=== PATIENT | female | born 1940 | race Caucasian/White ===

== ENCOUNTER 2021-10-11 12:47 | Inpatient (IN) | payer MEDICARE, MEDICAID, SELFPAY ==
--- NOTE | ~2021-10-11 | CT_ITS ---
EXAMINATION: CT CHEST, ABDOMEN AND PELVIS WITHOUT CONTRAST. CLINICAL INFORMATION: Cough, tachypnea. Left upper quadrant and left lower quadrant abdominal pain. COMPARISON: Chest radiograph dated from 05/19/2019. CT abdomen/pelvis dated from 07/21/2014. TECHNIQUE: Multidetector volumetric imaging was performed from the thoracic inlet through the pubic symphysis without intravenous contrast. Sagittal and coronal reformatted images were obtained on the technologist's workstation. This CT examination was performed using dose optimization techniques as appropriate, variously including the following: *Automated exposure control *Adjustment of mA and/or kV according to patient size (this includes techniques or standardized protocols for targeted exams where dose is matched to indication/reason for exam; i.e. extremities or head) *Use of iterative reconstruction technique DLP: 682 and 1623 mGy-cm FINDINGS: Evaluation is limited due to motion. CHEST: Lung: Poor inspiratory effort with low lung volumes. There are airspace opacities in the right lower lobe which could represent atelectasis or developing consolidation. Evaluation of pulmonary nodules is significantly limited due to respiratory motion. However, accounting for limitations, a 0.4 cm pulmonary nodule is identified in the left upper lobe (7:174). There is also a tiny calcified granuloma medially in the left lung base (7:322). There is expiratory narrowing of the trachea, which appears otherwise patent. Evaluation of bronchi is limited due to respiratory motion. Mediastinum: The heart size is enlarged. No pericardial effusion. Extensive triple-vessel coronary calcifications. There is also atherosclerotic disease of the thoracic aorta which is of normal diameter. There is no mediastinal lymphadenopathy by size criteria. Evaluation of hilar lymph nodes is limited in the absence of intravenous contrast. There is an enlarged and heterogeneous thyroid gland with multiple subcentimeter nodules, and a calcification in the left lobe. Pericardium/Pleura: No pleural effusion or pneumothorax. Chest Wall/Axilla: No chest wall mass. No axillary lymphadenopathy by size criteria. ABDOMEN/PELVIS: Peritoneal Space: No free air or free fluid. Liver, Gallbladder, Biliary Tree: The noncontrast liver is normal in size, shape and attenuation. No focal liver lesions are identified. The gallbladder is distended without evidence of radiopaque stones or pericholecystic fat stranding. Pancreas: Atrophic. The main pancreatic duct is nondilated. Spleen: Unremarkable. Adrenal Glands: Enlarged adrenal glands, similar since 2015. 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 Normal right adrenal gland. Kidneys and Ureters: The kidneys are normal in size, shape, and attenuation. No hydronephrosis, hydroureter, or calculi seen. No perinephric stranding. Bladder: Unremarkable. Gastrointestinal Tract: Small hiatal hernia. The stomach and the small bowel are nondilated. No evidence of colitis or diverticulitis. No bowel obstruction. Abdominal Wall: There is a 10.7 x 5 x 14.5 cm anterior left rectus sheath hematoma. Lymphovascular Structures: No lymphadenopathy by size criteria. The aorta is unremarkable. Pelvic Viscera: Evaluation is limited due to artifacts from a right hip prosthesis. Calcified uterine fibroids are again noted. Osseus Structures: Marked osteopenia, which limits evaluation of subtle osseous findings. Extensive degenerative changes along the lumbar spine. Mild compression deformities at L2 and L3 are new since 2015. Partially imaged total right hip arthroplasty. Chronic appearing deformity of the left anterior first and second ribs. CT/CT abdomen pelvis wo con IMPRESSION: Evaluation is limited due to motion. The lack of intravenous contrast limits evaluation of the solid visceral organs including the liver, spleen, pancreas, and kidneys. Chest: 1. Airspace opacities in the right lower lobe could represent atelectasis, aspiration or developing infiltrates. 2. Nonspecific 0.4 cm left upper lobe pulmonary nodule. Recommend follow-up per Fleischner criteria (see below). 3. Enlarged and heterogeneous thyroid gland for which correlation with an elective thyroid ultrasound is recommended. 4. Cardiomegaly and severe triple-vessel coronary calcifications. Correlate with cardiovascular risk factors. Abdomen/pelvis: 1. Large approximately up to 14.5 cm left anterior rectus sheath hematoma. Active extravasation cannot be assessed in the absence of intravenous contrast. 2. Hiatal hernia. 3. Marked osteopenia with new mild compression deformities at L2 and L3 when compared to 2015. Assuming patient has no history of malignancy, recommend follow-up per Fleischner Society recommendations. According to the UPDATED 2017 Fleischner Society recommendations, the advised followup imaging for solid nodules < 6 mm is: LOW RISK PATIENT: No routine follow up. HIGH RISK PATIENT: Optional CT at 12 months.
--- NOTE | 2021-10-11 13:01 | ECG_ITS ---
Test Reason : chest pain Blood Pressure : / mmHG Vent. Rate : 081 BPM Atrial Rate : 000 BPM P-R Int : 000 ms QRS Dur : 086 ms QT Int : 396 ms P-R-T Axes : 000 022 041 degrees QTc Int : 460 ms Atrial fibrillation Abnormal ECG When compared with ECG of 19-MAY-2019 20:41, No significant changes seen Referred By: Robert Phipps Electronically Signed By:ALBERTO VÁSQUEZ
--- NOTE | 2021-10-11 13:10 | ED.SOB ---
HPI - SOB/Dyspnea General Chief Complaint: General Medical Stated Complaint: weakness, diff breathing Time Seen by Provider: 10/11/21 12:51 Source: patient and EMS Mode of arrival: EMS Limitations: no limitations History of Present Illness HPI Narrative: 80-year-old female who is brought to the emergency department for evaluation of lethargy, weakness, difficulty breathing, and cough. According to the paramedics, the patient has been short of breath and has had a cough for 2-3 days. The patient had a chest x-ray from her senior care facility that revealed no evidence for pneumonia. Today the patient was more weak and lethargic compared to her baseline she continued to have a nonproductive sounding cough. According to paramedics, the patient's O2 saturation was in the low 90s [address] the patient on 3 L via nasal cannula in the O2 saturation 1 appeared 96%. Patient was also noted to have an elevated respiratory rate. Paramedics report that the patient had a COVID-19 booster vaccination yesterday. The patient does have dementia it is unclear if she is a reliable informant. She was oriented to person, she knew she was at [facility], she did not know the year. She has no complaints. Review of systems was positive for occasional cough, frequency but no dysuria. Related Data Home Medications Medication Instructions Recorded Confirmed acetaminophen 650 mg 650 mg PO Q4H PRN 03/20/21 10/11/21 tablet,extended release amiodarone 100 mg tablet 1 tab PO DAILY 03/20/21 10/11/21 buspirone 7.5 mg tablet 1 tab PO BID 03/20/21 10/11/21 donepezil 10 mg tablet 1 tab PO BEDTIME 03/20/21 10/11/21 hydralazine 25 mg tablet 1 tab PO TID 03/20/21 10/11/21 memantine 10 mg tablet 1 tab PO BID 03/20/21 10/11/21 rivaroxaban 20 mg tablet (Xarelto) 1 tab PO DAILY@1700 03/20/21 10/11/21 Fleet Enema 1 unit MA DAILY PRN 07/03/21 10/11/21 Milk of Magnesia 30 ml PO DAILY PRN 07/03/21 10/11/21 albuterol sulfate 90 mcg/actuation 2 puff INHALATION Q4H PRN 10/11/21 10/11/21 aerosol inhaler ammonium lactate 12 % lotion 1 appl TOPICAL BID PRN 10/11/21 10/11/21 bisacodyl 10 mg rectal suppository 10 mg MA DAILY PRN 10/11/21 10/11/21 cholecalciferol (vitamin D3) 125 125 mcg PO MO@1000 10/11/21 10/11/21 mcg (5,000 unit) tablet (Vitamin D3) furosemide 40 mg tablet 40 mg PO DAILY 10/11/21 10/11/21 guaifenesin 600 mg tablet, 600 mg PO BID 10/11/21 10/11/21 extended release 12 hr (Mucinex) lisinopril 5 mg tablet 5 mg PO BEDTIME 10/11/21 10/11/21 Allergies Allergy/AdvReac Type Severity Reaction Status Date / Time No Known Allergies Allergy Unverified 02/09/20 15:39 [No Known Allergies*] Review of Systems Review of Systems: Yes all other systems are reviewed and are negative [facility] Past Medical History Attestation statement: The following information was validated with the patient. [facility] Narrative: Social history: She lives at a long-term care facility. She denies tobacco, alcohol and drug use. Medical History (Updated 10/11/21 @ 16:32 by Robert Phipps MD) Anxiety Chronic CHF Depression Hemoglobinemia HTN (hypertension) Osteoarthritis Overactive bladder Persistent atrial fibrillation Vascular dementia of acute onset without behavioral disturbance Social History Social History Patient Tobacco Use Status: Never used Tobacco Advance Directives: No Advance Directives Information Provided: No Physical Exam Vital Signs: Vital Signs: Last Vital Signs Temp 100.7 F H 10/11/21 13:45 Pulse 92 10/11/21 13:45 Resp 30 H 10/11/21 13:45 BP 128/61 10/11/21 13:45 Pulse Ox 95 10/11/21 13:45 BMI result Body Mass Index 44.2 Const: Other: Awake, alert does answer questions appropriately, does not appear to be in distress Orientation/consciousness: oriented to person and oriented to place HEENT: Head: Yes normal to inspection, Yes normocephalic and Yes atraumatic Ears: external ears normal General nose exam: Normal external nose present Face and sinus: Yes normal facial exam Mouth: Normal oral and palatal mucosa present Throat: Yes posterior oropharynx normal Eyes: General: appearance normal, both eyes and all related structures Pupils: Equal, round and reactive pupils present Neck: Neck: Yes normal visual inspection, Yes no lymphadenopathy, Yes trachea midline and Yes supple Chest: Chest palpation & inspection: normal inspection of the chest and normal palpation of entire chest wall Resp: Effort & Inspection: normal respiratory effort and able to speak in complete sentences Auscultation: clear to auscultation bilaterally Cardio: Rate: regular rate Rhythm: regular rhythm Heart sounds: S1 normal heart sound present, S2 normal heart sound present and no murmurs GI: Inspection: Yes normal to inspection and Yes Abdominal panniculus present Palpation (GI): Soft to palpation, Tenderness to palpation present (GI) in the LLQ (Moderate) and in the LUQ (Moderate) and no guarding Auscultation: normal bowel sounds : General: Yes no CVA tenderness Back/Spine/Pelvis: Back: no CVA tenderness Skin: General skin exam: no rashes or lesions noted Neuro: General: oriented to person and oriented to place Cranial nerves: Yes CN's II-XII intact bilaterally and Yes Equal, round and reactive pupils present Cognition (Neuro): normal cognition Motor exam (neuro): Other motor observations present (Generalized weakness with who fell extremities symmetrically) Extrem: Other: Lower extremities appear to be swollen symmetrically, trace pitting edema Psych: Appearance: grossly normal Speech and movement: Normal speech and movement present Affect: normal affect Attitude: cooperative Course Course Course Narrative: 80-year-old female who presents emergency department for evaluation of 3 days of a nonproductive cough, shortness of breath and increased lethargy that began today. The patient is in a long-term care nursing facility. She had no complaints on presentation and review of systems is positive for cough and urinary frequency. Physical examination did reveal generalized weakness but she can move all her extremities symmetrically. She does have left upper quadrant and left lower quadrant tenderness. I did order CBC, CMP, lactate, blood cultures, PT/INR, PTT, EKG, troponin, CT scan of her chest, abdomen pelvis without contrast. Patient was ordered to get normal saline x1 L. 1605: Laboratory evaluation: WBC elevated 11,000 H&H was normal at 15.5 and 46.3 however decreased from 17 and 51.5 from 07/03/2021. Elevated PT INR 25.3 and 2.2. Elevated PTT 43.6. Low sodium 134, elevated glucose 126, elevated bilirubin 1.9. Urinalysis was positive for nitrates. Urine microscopic revealed 0 RBCs, 0 WBCs, 4+ bacteria, 1+ squamous cells. COVID-19 and influenza were negative. Radiology evaluation: CT of the chest without IV contrast concerning for possible right lower lobe infiltrate. Incidentally, the thyroid gland was enlarged and heterogeneous and the radiologist recommended an ultrasound. CT scan of the abdomen pelvis without IV contrast did reveal a large 14 cm left anterior rectus sheath hematoma. The patient will be treated for possible aspiration pneumonia with Zosyn 4.5 g IV. The patient's rectal sheath hematoma is most likely caused by Xarelto. The patient does have an elevated PT/INR and PTT. Given her a drop in her H&H I am concerned that she may have a life-threatening bleed and I did discuss reversal with the pharmacist. He recommended that we give the patient Kcentra 2500 units IV and vitamin K 10 units IV and this was ordered. I also ordered a type and screen. will discuss admission with the covering hospitalist. . MDM - SOB/Dyspnea Lab Data Attestation: I reviewed the patient's lab results. Result diagrams: 10/11/21 13:16 10/11/21 13:16 Labs: Lab Results 10/11/21 10/11/21 10/11/21 Range/Units 13:16 13:16 13:16 WBC 11.0 H (4.8-10.8) X10*3/uL RBC 5.60 H (4.20-5.50) X10*6/uL Hgb 15.5 (12.0-16.0) g/dl Hct 46.3 (37.0-47.0) % MCV 82.7 (80.0-98.0) fL MCH 27.7 (27.0-33.0) pg MCHC 33.5 (31.0-35.0) g/dl RDW 14.0 (11.0-16.0) % Plt Count 215 (160-400) X10*3/uL MPV 9.2 L (9.4-12.3) fL Immature Gran % (Auto) 0.7 H (0.0-0.4) % Neut % (Auto) 85.8 H (45-73) % Lymph % (Auto) 4.3 L (20-40) % [place] % (Auto) 8.8 (2-11) % Eos % (Auto) 0.0 (0-4) % Baso % (Auto) 0.4 (0-2) % Lymph # (Auto) 0.5 L (1.2-4.9) X10*3/uL [place] # (Auto) 1.0 (0.1-1.2) X10*3/uL Eos # (Auto) 0.0 (0.0-0.4) X10*3/uL Baso # (Auto) 0.0 (0.0-0.2) X10*3/uL Abs Immat Gran (auto) 0.08 H (0.00-0.03) X10*3/uL Absolute Neuts (auto) 9.5 H (2.0-8.3) x10*3/uL Absolute Nucleated RBC 0.000 (0.0-0.012) X10*3/uL Nucleated RBC % (auto) 0.0 (0.0-0.2) /100WBC PT 25.3 H (9.9-13.0) SEC INR 2.2 H (0.9-1.1) APTT 43.6 H (24.1-38.0) SEC Sodium 134 L (135-145) mmol/L Potassium 4.1 (3.3-5.1) mmol/L Chloride 103 (96-108) mmol/L Carbon Dioxide 23 (22-29) mmol/L Anion Gap 12 (12-20) BUN 15 (9-16) mg/dL Creatinine 0.71 (0.5-1.4) mg/dL Estim Creat Clear Calc 93.9 Estimated GFR > 60 Random Glucose 126 H (60-115) mg/dL Lactic Acid (0.5-2.0) mmol/L Calcium 8.6 (8.4-10.2) mg/dL Total Bilirubin 1.9 H (0.0-1.0) mg/dL AST 15 (5-31) U/L ALT 17 (0-31) U/L Alkaline Phosphatase 72 (39-117) U/L Total Creatine Kinase 75 (26-140) U/L Troponin I High Sens (<3.5-17.0) ng/L Total Protein 6.4 L (6.5-8.0) g/dL Albumin 3.5 (3.5-5.0) g/dL Lipase 10 (8-78) U/L Urine Color Urine Appearance Urine pH (5.0-8.0) Ur Specific [place] (1.005-1.025) Urine Protein (NEG-TRACE) MG/DL Urine Glucose (UA) (NEG) MG/DL Urine Ketones (NEG) MG/DL Urine Blood (NEG) Urine Nitrite (NEG) Ur Leukocyte Esterase (NEG) Urine RBC (0) /HPF Urine WBC (0-4) /HPF Ur Squamous Epith Cells /LPF Urine Bacteria /LPF COVID-19 (RADHA) (Negative) COVID-19 Clin Com Influenza Type A (PAMELA) (Negative) Influenza Type B (PAMELA) (Negative) Influenza A & B Note 10/11/21 10/11/21 10/11/21 Range/Units 13:16 13:16 13:16 WBC (4.8-10.8) X10*3/uL RBC (4.20-5.50) X10*6/uL Hgb (12.0-16.0) g/dl Hct (37.0-47.0) % MCV (80.0-98.0) fL MCH (27.0-33.0) pg MCHC (31.0-35.0) g/dl RDW (11.0-16.0) % Plt Count (160-400) X10*3/uL MPV (9.4-12.3) fL Immature Gran % (Auto) (0.0-0.4) % Neut % (Auto) (45-73) % Lymph % (Auto) (20-40) % [place] % (Auto) (2-11) % Eos % (Auto) (0-4) % Baso % (Auto) (0-2) % Lymph # (Auto) (1.2-4.9) X10*3/uL [place] # (Auto) (0.1-1.2) X10*3/uL Eos # (Auto) (0.0-0.4) X10*3/uL Baso # (Auto) (0.0-0.2) X10*3/uL Abs Immat Gran (auto) (0.00-0.03) X10*3/uL Absolute Neuts (auto) (2.0-8.3) x10*3/uL Absolute Nucleated RBC (0.0-0.012) X10*3/uL Nucleated RBC % (auto) (0.0-0.2) /100WBC PT (9.9-13.0) SEC INR (0.9-1.1) APTT (24.1-38.0) SEC Sodium (135-145) mmol/L Potassium (3.3-5.1) mmol/L Chloride (96-108) mmol/L Carbon Dioxide (22-29) mmol/L Anion Gap (12-20) BUN (9-16) mg/dL Creatinine (0.5-1.4) mg/dL Estim Creat Clear Calc Estimated GFR Random Glucose (60-115) mg/dL Lactic Acid 1.5 (0.5-2.0) mmol/L Calcium (8.4-10.2) mg/dL Total Bilirubin (0.0-1.0) mg/dL AST (5-31) U/L ALT (0-31) U/L Alkaline Phosphatase (39-117) U/L Total Creatine Kinase (26-140) U/L Troponin I High Sens 7.2 (<3.5-17.0) ng/L Total Protein (6.5-8.0) g/dL Albumin (3.5-5.0) g/dL Lipase (8-78) U/L Urine Color Urine Appearance Urine pH (5.0-8.0) Ur Specific [place] (1.005-1.025) Urine Protein (NEG-TRACE) MG/DL Urine Glucose (UA) (NEG) MG/DL Urine Ketones (NEG) MG/DL Urine Blood (NEG) Urine Nitrite (NEG) Ur Leukocyte Esterase (NEG) Urine RBC (0) /HPF Urine WBC (0-4) /HPF Ur Squamous Epith Cells /LPF Urine Bacteria /LPF COVID-19 (RADHA) (Negative) COVID-19 Clin Com Influenza Type A (PAMELA) Negative (Negative) Influenza Type B (PAMELA) Negative (Negative) Influenza A & B Note See Note 10/11/21 10/11/21 Range/Units 13:16 14:46 WBC (4.8-10.8) X10*3/uL RBC (4.20-5.50) X10*6/uL Hgb (12.0-16.0) g/dl Hct (37.0-47.0) % MCV (80.0-98.0) fL MCH (27.0-33.0) pg MCHC (31.0-35.0) g/dl RDW (11.0-16.0) % Plt Count (160-400) X10*3/uL MPV (9.4-12.3) fL Immature Gran % (Auto) (0.0-0.4) % Neut % (Auto) (45-73) % Lymph % (Auto) (20-40) % [place] % (Auto) (2-11) % Eos % (Auto) (0-4) % Baso % (Auto) (0-2) % Lymph # (Auto) (1.2-4.9) X10*3/uL [place] # (Auto) (0.1-1.2) X10*3/uL Eos # (Auto) (0.0-0.4) X10*3/uL Baso # (Auto) (0.0-0.2) X10*3/uL Abs Immat Gran (auto) (0.00-0.03) X10*3/uL Absolute Neuts (auto) (2.0-8.3) x10*3/uL Absolute Nucleated RBC (0.0-0.012) X10*3/uL Nucleated RBC % (auto) (0.0-0.2) /100WBC PT (9.9-13.0) SEC INR (0.9-1.1) APTT (24.1-38.0) SEC Sodium (135-145) mmol/L Potassium (3.3-5.1) mmol/L Chloride (96-108) mmol/L Carbon Dioxide (22-29) mmol/L Anion Gap (12-20) BUN (9-16) mg/dL Creatinine (0.5-1.4) mg/dL Estim Creat Clear Calc Estimated GFR Random Glucose (60-115) mg/dL Lactic Acid (0.5-2.0) mmol/L Calcium (8.4-10.2) mg/dL Total Bilirubin (0.0-1.0) mg/dL AST (5-31) U/L ALT (0-31) U/L Alkaline Phosphatase (39-117) U/L Total Creatine Kinase (26-140) U/L Troponin I High Sens (<3.5-17.0) ng/L Total Protein (6.5-8.0) g/dL Albumin (3.5-5.0) g/dL Lipase (8-78) U/L Urine Color YELLOW Urine Appearance CLOUDY Urine pH 6.0 (5.0-8.0) Ur Specific [place] 1.020 (1.005-1.025) Urine Protein NEG (NEG-TRACE) MG/DL Urine Glucose (UA) NEG (NEG) MG/DL Urine Ketones NEG (NEG) MG/DL Urine Blood TRACE (NEG) Urine Nitrite POS H (NEG) Ur Leukocyte Esterase NEG (NEG) Urine RBC 0 (0) /HPF Urine WBC 0 (0-4) /HPF Ur Squamous Epith Cells 1+ /LPF Urine Bacteria 4+ /LPF COVID-19 (RADHA) Negative (Negative) COVID-19 Clin Com See Note Influenza Type A (PAMELA) (Negative) Influenza Type B (PAMELA) (Negative) Influenza A & B Note ECG Data Attestation: I personally reviewed and interpreted this ECG as follows: Interpretation: 1316: Atrial fibrillation with a rate of 81, normal QRS and QTC interval, no ST segment elevation, no ST segment depression, no PACs, no PVCs. Critical Care Time Critical Care Time Total Critical Care Time: 30 Attestation: Critical Care: The patient was critically ill with a high probability of imminent or life threatening deterioration. I spent greater than 30 minutes of discontinuous time evaluating the patient,delivering critical care at the bedside, discussing and evaluating pertinent data with consultants. Critical care time does not include time spent performing separately billable procedures or teaching. Total time spent performing critical care was 30 minutes. Discharge Plan Discharge Clinical Impression: Pneumonia Qualifiers: Pneumonia type: due to unspecified organism Laterality: right Lung location: lower lobe of lung Qualified Code(s): J18.9 - Pneumonia, unspecified organism Hematoma of rectus sheath Qualifiers: Encounter type: initial encounter Qualified Code(s): S30.1XXA - Contusion of abdominal wall, initial encounter Patient Disposition: Admitted As Inpatient
[2021-10-11 13:19] VITALS: BP 148/80; PULSE 90; RESP 22; TEMP 38.1; O2SAT 97; BMI 44.2
[2021-10-11 13:22] LABS: MANUAL DIFF FLAG NO
[2021-10-11 13:25] LABS: Basophils Percent Auto 0.4 % (0-2); Hematocrit 46.3 % (37.0-47.0); Hemoglobin 15.5 g/dl (12.0-16.0); Imm Gran Abs Auto 0.08 X10*3/uL (0.00-0.03); Imm Gran Pct Auto 0.7 % (0.0-0.4); Lymphocytes Absolute Auto 0.5 X10*3/uL (1.2-4.9); Lymphocytes Percent Auto 4.3 % (20-40); Mean Corpuscular HGB Conc 33.5 g/dl (31.0-35.0); Mean Corpuscular Hemoglobin 27.7 pg (27.0-33.0); Mean Corpuscular Volume 82.7 fL (80.0-98.0); Mean Platelet Volume 9.2 fL (9.4-12.3); Monocytes Percent Auto 8.8 % (2-11); Neutrophils Absolute Auto 9.5 x10*3/uL (2.0-8.3); Neutrophils Percent Auto 85.8 % (45-73); Platelet Count 215 X10*3/uL (160-400)
[2021-10-11 13:37] LABS: Lactic Acid 1.5 mmol/L (0.5-2.0)
[2021-10-11 13:41] LABS: INTERNATIONAL NORM RATIO 2.2 (0.9-1.1); Prothrombin Time 25.3 SEC (9.9-13.0)
[2021-10-11 13:43] LABS: Alanine Aminotransferase 17 U/L (0-31); Albumin Level 3.5 g/dL (3.5-5.0); Alkaline Phosphatase 72 U/L (39-117); Anion Gap 12 (12-20); Aspartate Amino Transferase 15 U/L (5-31); Bilirubin Total 1.9 mg/dL (0.0-1.0); Blood Urea Nitrogen 15 mg/dL (9-16); Calcium 8.6 mg/dL (8.4-10.2); Carbon Dioxide 23 mmol/L (22-29); Chloride 103 mmol/L (96-108); Creatinine Clr Calc Pharmacy 93.9; Estimated Glomerular Filt Rate > 60; Glucose Random 126 mg/dL (60-115); Lipase 10 U/L (8-78); Partial Thromboplastin Time 43.6 SEC (24.1-38.0); Potassium 4.1 mmol/L (3.3-5.1); Sodium 134 mmol/L (135-145); Total Protein 6.4 g/dL (6.5-8.0)
[2021-10-11 13:45] VITALS: BP 128/61; PULSE 92; RESP 30; TEMP 38.2; O2SAT 95
[2021-10-11 13:46] LABS: Troponin-I High Sensitivity 7.2 ng/L (<3.5-17.0)
[2021-10-11 13:48] LABS: COVID-19 Test Negative (Negative)
--- NOTE | 2021-10-11 14:18 | PHA.MEDREC ---
MED REC COMPLETE, NO ISSUES Pharmacy Consult ? Medication Reconciliation Pharmacy has completed the medication reconciliation.
[2021-10-11 14:40] LABS: Influenza A Negative (Negative); Influenza B2 Negative (Negative)
[2021-10-11 14:52] LABS: Appearance Urine CLOUDY; Color Urine YELLOW; Glucose Urine UA NEG (NEG); Leukocyte Esterase Urine NEG (NEG); Nitrite Urine POS (NEG); UACC Culture Trigger YES; Urine Blood TRACE (NEG); Urine Ketones NEG (NEG); Urine Protein NEG (NEG-TRACE)
[2021-10-11 15:18] LABS: Bacteria Urine 4+ /LPF; RBC Urine 0 /HPF (0); Squamous Epithelial Cell Urine 1+ /LPF; WBC Urine 0 /HPF (0-4)
[2021-10-11] MEDS: Piperacillin Sodium/Tazobactam 4.5 GM in 0.9 % Sodium Chloride 100 ML IV (16:27)
[2021-10-11] MEDS: Phytonadione (Vit K1) 10 MG in 0.9 % Sodium Chloride 50 ML 51 MG IV (16:37)
[2021-10-11 16:38] VITALS: BP 105/59; PULSE 72; RESP 26; O2SAT 97
[2021-10-11] MEDS: Hum Prothrombin Cplx(PCC)4Fact 2,500 UNIT in Container,Empty 0 ML 480 UNIT IV (17:08)
--- NOTE | 2021-10-11 17:41 | PM.IMHP ---
History of Present Illness Date of Service: 10/11/21 Attending physician on admission: Violet Vargas Chief Complaint: shortness of breath and cough 80-year-old female resident of nursing facility with underlying history of dementia, atrial fibrillation on Xarelto, was sent to [facility] for evaluation of lethargy, weakness shortness of breath and dry cough of 2-3 days duration chest x-ray at [facility] showed no evidence of pneumonia this morning patient was noted to be lethargic weak compared to her baseline persistent dry cough therefore paramedics were called and patient was brought into [facility] patient was noted to have low-grade fever, she was tachypneic tachycardic, patient at present is awake alert able to answer questions appropriately, she denies headache, dizziness, denies nausea, vomiting, denies abdominal pain denies recent fall, denies urinary symptoms of urgency frequency, workup in the emergency room revealed atrial fibrillation on EKG, CT of the chest without IV contrast showed opacities question atelectasis versus developing right lower lobe infiltrate, thyroid gland was enlarged and heterogenous and radiologist recommended an ultrasound, CT scan of the abdomen and pelvis without IV contrast revealed a large 14 cm left anterior rectus sheath hematoma, INR noted to be 2, patient receive a dose of Kcentra 2500 units IV and vitamin K 10 units and now being admitted to [facility] with continued monitoring of CBC and treatment for pneumonia. 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, no dizziness CVS no chest pain, no palpitation GI no nausea, no vomiting, no abdominal pain musculoskeletal no pain Yes all other systems are reviewed and are negative [facility] Medical History Anxiety Chronic CHF Depression Hemoglobinemia HTN (hypertension) Osteoarthritis Overactive bladder Persistent atrial fibrillation Vascular dementia of acute onset without behavioral disturbance Pertinent family history: patient unable to provide family history due to underlying dementia Social History Patient Tobacco Use Status: Never used Tobacco Advance Directives: No Advance Directives Information Provided: No Meds Allergies Allergy/AdvReac Type Severity Reaction Status Date / Time No Known Allergies Allergy Unverified 02/09/20 15:39 [No Known Allergies*] Active Medications: Current Medications Acetaminophen (Acetaminophen 325 Mg Tablet) 650 mg PO Q6H PRN PRN Reason: Pain, Mild (Pain Scale 1-3) Albuterol Sulfate (Albuterol Sulfate 90 Mcg 8 Gm Inhaler) 2 puff INHALE Q4H PRN PRN Reason: Respiratory Distress Amiodarone HCl (Amiodarone Hcl 200 Mg Tablet) 100 mg PO DAILY [facility] Bisacodyl (Bisacodyl 10 Mg Supp.Rect) 10 mg AL DAILY PRN PRN Reason: Constipation Buspirone HCl (Buspirone Hcl 5 Mg Tablet) 7.5 mg PO BID [facility] Donepezil HCl (Donepezil Hcl 10 Mg Tablet) 10 mg PO BEDTIME [facility] Magnesium Hydroxide (Milk Of Magnesia 30 Ml Oral.Susp) 30 ml PO DAILY PRN PRN Reason: Constipation Memantine (Memantine Hcl 10 Mg Tablet) 10 mg PO BID [facility] Ondansetron HCl (Ondansetron Hcl 4 Mg/2 Ml Vial) 4 mg IVPUSH Q8H PRN PRN Reason: Nausea and Vomiting Pharmacy Consult (Consult Rx Perform Med Rec) 1 each MISCELLANE ONCE PRN PRN Reason: Consult order Sodium Chloride (0.9 % Sodium Chloride Flush 3 Ml Syringe) 3 ml IVFLUSH QSHIFT [facility] Home Medications Medication Instructions Recorded Confirmed Last Taken Type acetaminophen 650 mg 650 mg PO Q4H PRN 03/20/21 10/11/21 Unknown History tablet,extended release amiodarone 100 mg tablet 1 tab PO DAILY 03/20/21 10/11/21 10/11/21 History buspirone 7.5 mg tablet 1 tab PO BID 03/20/21 10/11/21 10/11/21 History donepezil 10 mg tablet 1 tab PO BEDTIME 03/20/21 10/11/21 10/10/21 History hydralazine 25 mg tablet 1 tab PO TID 03/20/21 10/11/21 10/11/21 History memantine 10 mg tablet 1 tab PO BID 03/20/21 10/11/21 10/11/21 History rivaroxaban 20 mg tablet (Xarelto) 1 tab PO DAILY@1700 03/20/21 10/11/21 10/10/21 History Fleet Enema 1 unit AL DAILY PRN 07/03/21 10/11/21 Unknown History Milk of Magnesia 30 ml PO DAILY PRN 07/03/21 10/11/21 Unknown History albuterol sulfate 90 mcg/actuation 2 puff INHALATION Q4H PRN 10/11/21 10/11/21 Unknown History aerosol inhaler ammonium lactate 12 % lotion 1 appl TOPICAL BID PRN 10/11/21 10/11/21 Unknown History bisacodyl 10 mg rectal suppository 10 mg AL DAILY PRN 10/11/21 10/11/21 Unknown History cholecalciferol (vitamin D3) 125 125 mcg PO MO@1000 10/11/21 10/11/21 10/07/21 History mcg (5,000 unit) tablet (Vitamin D3) furosemide 40 mg tablet 40 mg PO DAILY 10/11/21 10/11/21 10/11/21 History guaifenesin 600 mg tablet, 600 mg PO BID 10/11/21 10/11/21 10/11/21 History extended release 12 hr (Mucinex) lisinopril 5 mg tablet 5 mg PO BEDTIME 10/11/21 10/11/21 10/10/21 History Physical Exam Vital Signs and Narrative: Vital Signs: Last Vital Signs Temp 100.7 F H 10/11/21 13:45 Pulse 72 10/11/21 16:38 Resp 26 H 10/11/21 16:38 BP 105/59 L 10/11/21 16:38 Pulse Ox 97 10/11/21 16:38 BMI result Body Mass Index 44.2 Const: Other: General awake alert to place and person, in no acute distress. HEENT anicteric sclera Neck supple no JVD. CVS irregular rate rhythm, Respiratory lungs coarse breath sound at bases, no respiratory distress, no wheeze, no rhonchi. Gastrointestinal abdomen soft, mild left-sided tenderness to deep palpation, no bruising or hematoma, no guarding , no rigidity. Extremities trace edema both upper and lower extremity Neuro moving all 4 extremity speech clear. musculoskeletal no deformity Results Labs CBC and Chem 7: 10/11/21 13:16 10/11/21 13:16 Labs: Laboratory Results - last 24 hr 10/11/21 10/11/21 10/11/21 13:16 13:16 13:16 MCV 82.7 MCH 27.7 MCHC 33.5 RDW 14.0 Plt Count 215 MPV 9.2 L Immature Gran % (Auto) 0.7 H Neut % (Auto) 85.8 H Lymph % (Auto) 4.3 L [place] % (Auto) 8.8 Eos % (Auto) 0.0 Baso % (Auto) 0.4 Lymph # (Auto) 0.5 L [place] # (Auto) 1.0 Eos # (Auto) 0.0 Baso # (Auto) 0.0 Abs Immat Gran (auto) 0.08 H Absolute Neuts (auto) 9.5 H Absolute Nucleated RBC 0.000 Nucleated RBC % (auto) 0.0 PT 25.3 H INR 2.2 H APTT 43.6 H Anion Gap 12 Estim Creat Clear Calc 93.9 Estimated GFR > 60 Random Glucose 126 H Lactic Acid Calcium 8.6 Total Bilirubin 1.9 H AST 15 ALT 17 Alkaline Phosphatase 72 Total Creatine Kinase 75 Troponin I High Sens Total Protein 6.4 L Albumin 3.5 Lipase 10 Urine Color Urine Appearance Urine pH Ur Specific [place] Urine Protein Urine Glucose (UA) Urine Ketones Urine Blood Urine Nitrite Ur Leukocyte Esterase Urine RBC Urine WBC Ur Squamous Epith Cells Urine Bacteria COVID-19 (RADHA) COVID-19 Clin Com Influenza Type A (PAMELA) Influenza Type B (PAMELA) Influenza A & B Note Blood Type 10/11/21 10/11/21 10/11/21 13:16 13:16 13:16 MCV MCH MCHC RDW Plt Count MPV Immature Gran % (Auto) Neut % (Auto) Lymph % (Auto) [place] % (Auto) Eos % (Auto) Baso % (Auto) Lymph # (Auto) [place] # (Auto) Eos # (Auto) Baso # (Auto) Abs Immat Gran (auto) Absolute Neuts (auto) Absolute Nucleated RBC Nucleated RBC % (auto) PT INR APTT Anion Gap Estim Creat Clear Calc Estimated GFR Random Glucose Lactic Acid 1.5 Calcium Total Bilirubin AST ALT Alkaline Phosphatase Total Creatine Kinase Troponin I High Sens 7.2 Total Protein Albumin Lipase Urine Color Urine Appearance Urine pH Ur Specific [place] Urine Protein Urine Glucose (UA) Urine Ketones Urine Blood Urine Nitrite Ur Leukocyte Esterase Urine RBC Urine WBC Ur Squamous Epith Cells Urine Bacteria COVID-19 (RADHA) COVID-19 Clin Com Influenza Type A (PAMELA) Negative Influenza Type B (PAMELA) Negative Influenza A & B Note See Note Blood Type 10/11/21 10/11/21 10/11/21 13:16 14:46 16:59 MCV MCH MCHC RDW Plt Count MPV Immature Gran % (Auto) Neut % (Auto) Lymph % (Auto) [place] % (Auto) Eos % (Auto) Baso % (Auto) Lymph # (Auto) [place] # (Auto) Eos # (Auto) Baso # (Auto) Abs Immat Gran (auto) Absolute Neuts (auto) Absolute Nucleated RBC Nucleated RBC % (auto) PT INR APTT Anion Gap Estim Creat Clear Calc Estimated GFR Random Glucose Lactic Acid Calcium Total Bilirubin AST ALT Alkaline Phosphatase Total Creatine Kinase Troponin I High Sens Total Protein Albumin Lipase Urine Color YELLOW Urine Appearance CLOUDY Urine pH 6.0 Ur Specific [place] 1.020 Urine Protein NEG Urine Glucose (UA) NEG Urine Ketones NEG Urine Blood TRACE Urine Nitrite POS H Ur Leukocyte Esterase NEG Urine RBC 0 Urine WBC 0 Ur Squamous Epith Cells 1+ Urine Bacteria 4+ COVID-19 (RADHA) Negative COVID-19 Clin Com See Note Influenza Type A (PAMELA) Influenza Type B (PAMELA) Influenza A & B Note Blood Type A Positive Imaging Radiologist's Impressions: Impressions Abdomen/Pelvis CT 10/11/21 14:47 IMPRESSION: Evaluation is limited due to motion. The lack of intravenous contrast limits evaluation of the solid visceral organs including the liver, spleen, pancreas, and kidneys. Chest: 1. Airspace opacities in the right lower lobe could represent atelectasis, aspiration or developing infiltrates. 2. Nonspecific 0.4 cm left upper lobe pulmonary nodule. Recommend follow-up per Fleischner criteria (see below). 3. Enlarged and heterogeneous thyroid gland for which correlation with an elective thyroid ultrasound is recommended. 4. Cardiomegaly and severe triple-vessel coronary calcifications. Correlate with cardiovascular risk factors. Abdomen/pelvis: 1. Large approximately up to 14.5 cm left anterior rectus sheath hematoma. Active extravasation cannot be assessed in the absence of intravenous contrast. 2. Hiatal hernia. 3. Marked osteopenia with new mild compression deformities at L2 and L3 when compared to 2015. Assuming patient has no history of malignancy, recommend follow-up per Fleischner Society recommendations. According to the UPDATED 2017 Fleischner Society recommendations, the advised followup imaging for solid nodules < 6 mm is: LOW RISK PATIENT: No routine follow up. HIGH RISK PATIENT: Optional CT at [address] 10/11/21 14:47 IMPRESSION: Evaluation is limited due to motion. The lack of intravenous contrast limits evaluation of the solid visceral organs including the liver, spleen, pancreas, and kidneys. Chest: 1. Airspace opacities in the right lower lobe could represent atelectasis, aspiration or developing infiltrates. 2. Nonspecific 0.4 cm left upper lobe pulmonary nodule. Recommend follow-up per Fleischner criteria (see below). 3. Enlarged and heterogeneous thyroid gland for which correlation with an elective thyroid ultrasound is recommended. 4. Cardiomegaly and severe triple-vessel coronary calcifications. Correlate with cardiovascular risk factors. Abdomen/pelvis: 1. Large approximately up to 14.5 cm left anterior rectus sheath hematoma. Active extravasation cannot be assessed in the absence of intravenous contrast. 2. Hiatal hernia. 3. Marked osteopenia with new mild compression deformities at L2 and L3 when compared to 2015. Assuming patient has no history of malignancy, recommend follow-up per Fleischner Society recommendations. According to the UPDATED 2017 Fleischner Society recommendations, the advised followup imaging for solid nodules < 6 mm is: LOW RISK PATIENT: No routine follow up. HIGH RISK PATIENT: Optional CT at 12 months. Assessment and Plan (1) Pneumonia: Qualifiers: Laterality: right Lung location: lower lobe of lung Pneumonia type: due to unspecified organism Qualified Code(s): J18.9 - Pneumonia, unspecified organism Status: Acute (2) Hematoma of rectus sheath: Qualifiers: Encounter type: initial encounter Qualified Code(s): S30.1XXA - Contusion of abdominal wall, initial encounter Status: Acute (3) Polycythemia: Status: Chronic Plan 80-year-old woman resident of nursing facility with multiple medical problems including chronic atrial fibrillation ,chronic polycythemia, chronic congestive heart failure, anxiety, hypertension, vascular demand sent to [facility] due to symptoms of cough generalized weakness and lethargy workup in the emergency room revealed left abdominal rectus sheath muscle hematoma developing pneumonia, patient noted to have drop in her hematocrit from her baseline, patient received IV vitamin K and Kcentra 2500 units IV now being admitted for continued monitoring and treatment for developing pneumonia and hematoma.? left abdominal rectus sheath muscle hematoma likely due to coughing of 2-3 days duration with use of Xarelto hematocrit dropped from 51.5 to 46.3 will hold Xarelto follow CBC, and INR, 1 dose of IV vitamin K 10 mg and Kcentra given sepsis due to right lower lobe pneumonia patient provide history of dry cough of 2-3 days duration initial chest x-ray at nursing facility was negative now noted to have developing pneumonia patient noted to be febrile tachypneic and tachycardia, received 1 dose of IV Zosyn in the emergency room will continue IV Zosyn follow urine and blood cultures follow CBC and clinical course use Tylenol and cough medication hypertension noted to have a low blood pressure will hold Lasix, hydralazine and lisinopril follow BP closely and resume medication as indicated chronic persistent atrial fibrillation continue amiodarone ventricular rate stable hold Xarelto as above polycythemia being followed by Dr. Manzano as outpatient vascular dementia with no behavioral issues continue Aricept and Namenda Morbid obesity will place on low-calorie diet Code status patient has MOLST form and is full code DVT prophylaxis due to large hematoma will hold anticoagulation and placed on compression boots patient will require 2 midnight inpatient hospitalization for close monitoring of hematocrit with large hematoma and IV antibiotics for sepsis due to pneumonia. Quality Stroke Does the patient have a stroke diagnosis?: No VTE Prior VTE?: No VTE Risk Level:: Medical - moderate - high VTE Device Contraindication: N/A - Device Ordered VTE Drug Contraindication: Treatment Not Indicated
[2021-10-11 18:27] VITALS: BP 115/67; PULSE 76; RESP 22; TEMP 37.2; O2SAT 97
--- NOTE | 2021-10-11 20:11 | PC.NURSE ---
patient skin cleansed and linens changed. no skin breakdown noted on back. purwick still in place. patient sleeping until stimulated, easily awakened and oriented on waking. patient updated on plan of care, quickly falls asleep
[2021-10-11 20:30] VITALS: BP 117/60; PULSE 83; RESP 18; TEMP 36.8; O2SAT 98
[2021-10-11 20:51] LABS: Valproate < 2.0 mcg/mL (50.0-100.0)
[2021-10-11] MEDS: Piperacillin Sodium/Tazobactam 3.375 GM in 0.9 % Sodium Chloride 50 ML IV (21:35)
[2021-10-11] MEDS: 0.9 % Sodium Chloride Flush 3 ML SYRINGE IVFLUSH (21:35)
[2021-10-11] MEDS: busPIRone HCl 5 MG TABLET 7.5 MG PO (21:35)
[2021-10-11] MEDS: Memantine HCl 10 MG TABLET PO (21:37)
[2021-10-11] MEDS: Donepezil HCl 10 MG TABLET PO (21:38)
[2021-10-11] MEDS: guaiFENesin DM 200/20/10 ML 10 ML SYRUP PO (21:38)
[2021-10-12 00:08] VITALS: BP 127/78; PULSE 89; RESP 19; O2SAT 99
[2021-10-12] MEDS: Piperacillin Sodium/Tazobactam 3.375 GM in 0.9 % Sodium Chloride 50 ML IV ×4 (03:59→22:12)
[2021-10-12 04:00] VITALS: BP 108/56; PULSE 74; RESP 22; O2SAT 99
[2021-10-12 07:08] LABS: Anion Gap 12 (12-20); Blood Urea Nitrogen 19 mg/dL (9-16); Calcium 8.4 mg/dL (8.4-10.2); Carbon Dioxide 26 mmol/L (22-29); Chloride 103 mmol/L (96-108); Creatinine Clr Calc Pharmacy 90.1; Estimated Glomerular Filt Rate > 60; Glucose Random 95 mg/dL (60-115); Sodium 137 mmol/L (135-145)
[2021-10-12 07:09] LABS: Hematocrit 41.2 % (37.0-47.0); Hemoglobin 13.5 g/dl (12.0-16.0); Mean Corpuscular HGB Conc 32.8 g/dl (31.0-35.0); Mean Corpuscular Hemoglobin 28.1 pg (27.0-33.0); Mean Corpuscular Volume 85.7 fL (80.0-98.0); Mean Platelet Volume 9.6 fL (9.4-12.3); Platelet Count 187 X10*3/uL (160-400); Red Blood Count 4.81 X10*6/uL (4.20-5.50); Red Cell Distribution Width 14.2 % (11.0-16.0); White Blood Count 7.9 X10*3/uL (4.8-10.8)
[2021-10-12 07:21] LABS: INTERNATIONAL NORM RATIO 1.4 (0.9-1.1); Prothrombin Time 16.1 SEC (9.9-13.0)
[2021-10-12] MEDS: Amiodarone HCL 200 MG TABLET 100 MG PO (10:14)
[2021-10-12] MEDS: busPIRone HCl 5 MG TABLET 7.5 MG PO ×2 (10:15→22:13)
[2021-10-12] MEDS: 0.9 % Sodium Chloride Flush 3 ML SYRINGE IVFLUSH ×3 (10:18→23:51)
[2021-10-12] MEDS: guaiFENesin DM 200/20/10 ML 10 ML SYRUP PO ×3 (11:10→22:13)
[2021-10-12] MEDS: Memantine HCl 10 MG TABLET PO ×2 (11:10→22:13)
[2021-10-12 11:22] VITALS: BP 119/70; PULSE 80; RESP 20; TEMP 36.8; O2SAT 98
--- NOTE | 2021-10-12 12:19 | PC.NURSE ---
pt alert, vss, denies pain. meds given as documented. incontinent care provided.
[2021-10-12 16:02] VITALS: BP 91/56; PULSE 74; RESP 18; TEMP 36.9
--- NOTE | 2021-10-12 16:10 | MHC.CM.PN ---
Pt confused at baseline but pleasant and verbal. Information obtained from EMR and spouse, Aba. Pt is a LTC resident of [facility] and will return when medically stable. Pt has adaptive equipment and is mostly dependent on staff for ADL's. Received vax x2 w/ new booster. HCP on file. No additional needs anticipated. BLS transport upon return to SNF.
--- NOTE | 2021-10-12 18:43 | PC.NURSE ---
report given to URSZULA [place]. pt to be transferred to room 368.
[2021-10-12 18:48] VITALS: BP 113/69
[2021-10-12 20:00] VITALS: BP 132/61; PULSE 72; RESP 18; TEMP 36.6; O2SAT 95
[2021-10-12 21:16] LABS: Glucose, Whole Blood 85 mg/dL (60-115)
[2021-10-12] MEDS: Donepezil HCl 10 MG TABLET PO (22:13)
[2021-10-13] VITALS (7 sets, daily range): BP systolic 94–138; BP diastolic 48–80; PULSE 63–75; RESP 16–20; TEMP 36.1–36.6; O2SAT 97–100
[2021-10-13] MEDS: Piperacillin Sodium/Tazobactam 3.375 GM in 0.9 % Sodium Chloride 50 ML IV ×4 (04:04→21:54)
[2021-10-13 07:21] LABS: Glucose, Whole Blood 81 mg/dL (60-115)
[2021-10-13] MEDS: busPIRone HCl 5 MG TABLET 7.5 MG PO ×2 (09:06→20:08)
[2021-10-13] MEDS: Amiodarone HCL 200 MG TABLET 100 MG PO (09:06)
[2021-10-13] MEDS: Memantine HCl 10 MG TABLET PO ×2 (09:07→20:07)
[2021-10-13] MEDS: 0.9 % Sodium Chloride Flush 3 ML SYRINGE IVFLUSH ×3 (09:07→20:08)
[2021-10-13] MEDS: guaiFENesin DM 200/20/10 ML 10 ML SYRUP PO ×3 (09:07→20:07)
--- NOTE | 2021-10-13 18:43 | HO.PM.IMPN ---
Subjective Subjective Date of Service: 10/13/21 Interval History: No acute issues overnight. Review of Systems Unable to obtain secondary to dementia Physical Exam Vital Signs: Vital Signs: Last Vital Signs Temp 97.0 F 10/13/21 15:10 Pulse 68 10/13/21 15:10 Resp 20 10/13/21 15:10 BP 136/69 10/13/21 15:10 Pulse Ox 99 10/13/21 15:10 BMI result Body Mass Index 44.2 Const: Other: Awake confused no acute distress Resp: Other: Diminished at bases fine crackles left lower lobe Cardio: Other: No S4; positive S1-S2; no S3 murmurs rubs or gallops GI: Other: Soft positive bowel sounds x4 quadrants Extrem: Other: No edema bilaterally Objective Data Active Medications Acetaminophen (Acetaminophen 325 Mg Tablet) 650 mg PO Q6H PRN PRN Reason: Pain, Mild (Pain Scale 1-3) Albuterol Sulfate (Albuterol Sulfate 90 Mcg 8 Gm Inhaler) 2 puff INHALE Q4H PRN PRN Reason: Respiratory Distress Amiodarone HCl (Amiodarone Hcl 200 Mg Tablet) 100 mg PO DAILY [facility] Last Admin: 10/13/21 09:06 Dose: 100 mg Documented by: RAVI Bisacodyl (Bisacodyl 10 Mg Supp.Rect) 10 mg MS DAILY PRN PRN Reason: Constipation Buspirone HCl (Buspirone Hcl 5 Mg Tablet) 7.5 mg PO BID [facility] Last Admin: 10/13/21 09:06 Dose: 7.5 mg Documented by: RAVI Donepezil HCl (Donepezil Hcl 10 Mg Tablet) 10 mg PO BEDTIME [facility] Last Admin: 10/12/21 22:13 Dose: 10 mg Documented by: CLARENCE Guaifenesin/Dextromethorphan (Guaifenesin Dm 200/20/10 Ml 10 Ml Syrup) 10 ml PO TID [facility] Last Admin: 10/13/21 17:03 Dose: 10 ml Documented by: RAVI Piperacillin Sod/Tazobactam (Sod 3.375 gm/ Sodium Chloride) 50 mls @ 100 mls/hr IV Q6H [facility] Last Infusion: 10/13/21 18:12 Dose: 0 mls/hr Documented by: RAVI Magnesium Hydroxide (Milk Of Magnesia 30 Ml Oral.Susp) 30 ml PO DAILY PRN PRN Reason: Constipation Memantine (Memantine Hcl 10 Mg Tablet) 10 mg PO BID [facility] Last Admin: 10/13/21 09:07 Dose: 10 mg Documented by: RAVI Ondansetron HCl (Ondansetron Hcl 4 Mg/2 Ml Vial) 4 mg IVPUSH Q8H PRN PRN Reason: Nausea and Vomiting Pharmacy Consult (Consult Rx Perform Med Rec) 1 each MISCELLANE ONCE PRN PRN Reason: Consult order Sodium Chloride (0.9 % Sodium Chloride Flush 3 Ml Syringe) 3 ml IVFLUSH QSHIFT [facility] Last Admin: 10/13/21 17:03 Dose: 3 ml Documented by: RAVI Labs CBC & Chem 7: 10/12/21 06:41 10/12/21 06:41 Labs: Laboratory Results - last 24 hr 10/12/21 10/13/21 21:10 07:17 POC Glucose 85 81 Microbiology Microbiology Results: Microbiology 10/11/21 13:59 Blood Culture - Preliminary Blood - Venous No growth after 48 hours. 10/11/21 13:25 Blood Culture - Preliminary Blood - Venous No growth after 48 hours. 10/11/21 15:06 Urine Culture - Preliminary Urine clean catch - Urine kraft top Gram negative junaid Assessment and Plan (1) Pneumonia: Status: Acute (2) Hematoma of rectus sheath: Status: Acute (3) Persistent atrial fibrillation: Status: Acute Plan 80-year-old woman resident of nursing facility with multiple medical problems including chronic atrial fibrillation ,chronic polycythemia, chronic congestive heart failure, anxiety, hypertension, vascular demand sent to [facility] due to symptoms of cough generalized weakness and lethargy workup in the emergency room revealed left abdominal rectus sheath muscle hematoma developing pneumonia, 1. Left lower lobe infiltrate -continue Zosyn -titrate O2 to maintain sats greater than or equal to 92% -albuterol p.r.n. wheezing 2. Rectus sheath hematoma -follow CBC and INR -hold Xarelto 3. Chronic atrial fibrillation -acceptable rate control on current therapies -adjust as indicated -hold Xarelto secondary to rectus sheath hematoma 4. Vascular dementia -continue outpatient therapies Full code SCD Will require ongoing hospitalization for IV antibiotics to treat pneumonia and follow CBC. Quality Stroke Does the patient have a stroke diagnosis?: No VTE Prior VTE?: No VTE Risk Level:: Medical - moderate - high VTE Device Contraindication: N/A - Device Ordered VTE Drug Contraindication: Treatment Not Indicated
[2021-10-13 19:26] LABS: MANUAL DIFF FLAG NO
[2021-10-13 19:27] LABS: Basophils Percent Auto 0.5 % (0-2); Eosinophils Absolute Auto 0.2 X10*3/uL (0.0-0.4); Eosinophils Percent Auto 2.6 % (0-4); Hematocrit 42.1 % (37.0-47.0); Hemoglobin 13.7 g/dl (12.0-16.0); Imm Gran Abs Auto 0.05 X10*3/uL (0.00-0.03); Imm Gran Pct Auto 0.7 % (0.0-0.4); Lymphocytes Absolute Auto 0.9 X10*3/uL (1.2-4.9); Lymphocytes Percent Auto 11.8 % (20-40); Mean Corpuscular HGB Conc 32.5 g/dl (31.0-35.0); Mean Corpuscular Volume 85.9 fL (80.0-98.0); Mean Platelet Volume 9.8 fL (9.4-12.3); Monocytes Absolute Auto 0.8 X10*3/uL (0.1-1.2); Monocytes Percent Auto 10.3 % (2-11); Neutrophils Absolute Auto 5.7 x10*3/uL (2.0-8.3); Neutrophils Percent Auto 74.1 % (45-73); Platelet Count 229 X10*3/uL (160-400); White Blood Count 7.7 X10*3/uL (4.8-10.8)
[2021-10-13 19:35] LABS: INTERNATIONAL NORM RATIO 1.2 (0.9-1.1); Prothrombin Time 13.7 SEC (9.9-13.0)
[2021-10-13] MEDS: Donepezil HCl 10 MG TABLET PO (20:07)
[2021-10-14] VITALS (7 sets, daily range): BP systolic 114–143; BP diastolic 58–83; PULSE 59–86; RESP 18–20; TEMP 36–36.7; O2SAT 98–100
[2021-10-14] MEDS: Piperacillin Sodium/Tazobactam 3.375 GM in 0.9 % Sodium Chloride 50 ML IV ×4 (03:58→21:55)
[2021-10-14] MEDS: guaiFENesin DM 200/20/10 ML 10 ML SYRUP PO ×3 (09:08→21:55)
[2021-10-14] MEDS: busPIRone HCl 5 MG TABLET 7.5 MG PO ×2 (09:08→21:55)
[2021-10-14] MEDS: Memantine HCl 10 MG TABLET PO ×2 (09:08→21:55)
[2021-10-14] MEDS: 0.9 % Sodium Chloride Flush 3 ML SYRINGE IVFLUSH ×3 (09:08→21:55)
[2021-10-14] MEDS: Amiodarone HCL 200 MG TABLET 100 MG PO (09:08)
--- NOTE | 2021-10-14 09:47 | MHC.CLN ---
NUTRITION CONSULT FOR SKIN ISSUE. PATIENT WITH REDNESS TO BILATERAL BUTTOCKS. DIET= CARDIAC-APPROPRIATE. NO ADDITIONAL NUTRITION INTERVENTIONS AT THIS TIME.
--- NOTE | 2021-10-14 11:53 | P.PNIM_ITS ---
Subjective Subjective Date of Service: 10/14/21 Interval History: No acute issues overnight. Remains pleasantly confused Review of Systems Unable to obtain secondary to dementia Physical Exam Vital Signs: Vital Signs: Last Vital Signs Temp 98.0 F 10/14/21 11:28 Pulse 59 10/14/21 11:28 Resp 18 10/14/21 11:28 BP 114/60 10/14/21 11:28 Pulse Ox 100 10/14/21 11:28 BMI result Body Mass Index 44.2 Const: Other: Awake confused no acute distress Resp: Other: Diminished at bases fine crackles left lower lobe Cardio: Other: No S4; positive S1-S2; no S3 murmurs rubs or gallops GI: Other: Soft positive bowel sounds x4 quadrants Extrem: Other: No edema bilaterally Objective Data Active Medications Acetaminophen (Acetaminophen 325 Mg Tablet) 650 mg PO Q6H PRN PRN Reason: Pain, Mild (Pain Scale 1-3) Albuterol Sulfate (Albuterol Sulfate 90 Mcg 8 Gm Inhaler) 2 puff INHALE Q4H PRN PRN Reason: Respiratory Distress Amiodarone HCl (Amiodarone Hcl 200 Mg Tablet) 100 mg PO DAILY [facility] Last Admin: 10/14/21 09:08 Dose: 100 mg Documented by: ISAAC Bisacodyl (Bisacodyl 10 Mg Supp.Rect) 10 mg VA DAILY PRN PRN Reason: Constipation Buspirone HCl (Buspirone Hcl 5 Mg Tablet) 7.5 mg PO BID [facility] Last Admin: 10/14/21 09:08 Dose: 7.5 mg Documented by: ISAAC Donepezil HCl (Donepezil Hcl 10 Mg Tablet) 10 mg PO BEDTIME [facility] Last Admin: 10/13/21 20:07 Dose: 10 mg Documented by: ZULEYKA Guaifenesin/Dextromethorphan (Guaifenesin Dm 200/20/10 Ml 10 Ml Syrup) 10 ml PO TID [facility] Last Admin: 10/14/21 09:08 Dose: 10 ml Documented by: ISAAC Piperacillin Sod/Tazobactam (Sod 3.375 gm/ Sodium Chloride) 50 mls @ 100 mls/hr IV Q6H [facility] Last Infusion: 10/14/21 10:28 Dose: 0 mls/hr Documented by: ISAAC Magnesium Hydroxide (Milk Of Magnesia 30 Ml Oral.Susp) 30 ml PO DAILY PRN PRN Reason: Constipation Memantine (Memantine Hcl 10 Mg Tablet) 10 mg PO BID [facility] Last Admin: 10/14/21 09:08 Dose: 10 mg Documented by: ISAAC Ondansetron HCl (Ondansetron Hcl 4 Mg/2 Ml Vial) 4 mg IVPUSH Q8H PRN PRN Reason: Nausea and Vomiting Pharmacy Consult (Consult Rx Perform Med Rec) 1 each MISCELLANE ONCE PRN PRN Reason: Consult order Sodium Chloride (0.9 % Sodium Chloride Flush 3 Ml Syringe) 3 ml IVFLUSH QSHIFT [facility] Last Admin: 10/14/21 09:08 Dose: 3 ml Documented by: ISAAC Labs CBC & Chem 7: 10/13/21 18:55 10/12/21 06:41 Labs: Laboratory Results - last 24 hr 10/13/21 10/13/21 18:55 18:55 MCV 85.9 MCH 28.0 MCHC 32.5 RDW 14.0 Plt Count 229 MPV 9.8 Immature Gran % (Auto) 0.7 H Neut % (Auto) 74.1 H Lymph % (Auto) 11.8 L Hamilton % (Auto) 10.3 Eos % (Auto) 2.6 Baso % (Auto) 0.5 Lymph # (Auto) 0.9 L Hamilton # (Auto) 0.8 Eos # (Auto) 0.2 Baso # (Auto) 0.0 Abs Immat Gran (auto) 0.05 H Absolute Neuts (auto) 5.7 Absolute Nucleated RBC 0.000 Nucleated RBC % (auto) 0.0 PT 13.7 H INR 1.2 H Microbiology Microbiology Results: Microbiology 10/11/21 15:06 Urine Culture - Preliminary Urine clean catch - Urine kraft top Escherichia coli 10/11/21 13:59 Blood Culture - Preliminary Blood - Venous No growth after 48 hours. 10/11/21 13:25 Blood Culture - Preliminary Blood - Venous No growth after 48 hours. Assessment and Plan (1) Pneumonia: Status: Acute (2) Hematoma of rectus sheath: Status: Acute (3) Persistent atrial fibrillation: Status: Acute Plan 80-year-old woman resident of nursing facility with multiple medical problems including chronic atrial fibrillation ,chronic polycythemia, chronic congestive heart failure, anxiety, hypertension, vascular demand sent to [facility] due to symptoms of cough generalized weakness and lethargy workup in the emergency room revealed left abdominal rectus sheath muscle hematoma developing pneumonia, 1. Left lower lobe infiltrate -continue Zosyn(4)...Augmentin upon d/c -titrate O2 to maintain sats greater than or equal to 92% -albuterol p.r.n. wheezing 2. Rectus sheath hematoma -Hgb stable..check in am. If stable...D/C -follow CBC and INR -Xarelto...PCP can restart at their discretion 3. Chronic atrial fibrillation -acceptable rate control on current therapies -adjust as indicated -hold Xarelto secondary to rectus sheath hematoma -restart as outpatient 4. Vascular dementia -continue outpatient therapies Full code SCD Will require ongoing hospitalization for IV antibiotics to treat pneumonia and follow CBC. Quality Stroke Does the patient have a stroke diagnosis?: No VTE Prior VTE?: No VTE Risk Level:: Medical - moderate - high VTE Device Contraindication: N/A - Device Ordered VTE Drug Contraindication: Treatment Not Indicated
--- NOTE | 2021-10-14 14:56 | MHC.CM.PN ---
EMR REVIEWED, PER HOSPITALIST IF PT'S HGB REMAINS STABLE ANTIC THEY WILL BE MATILDA TO RETURN TO LTC AT [facility], [facility] UPDATED VIA [facility], CM WILL CONT TO FOLLOW D/C NEEDS
[2021-10-14] MEDS: Donepezil HCl 10 MG TABLET PO (21:55)
[2021-10-15 03:55] VITALS: BP 139/72; PULSE 66; RESP 18; TEMP 36.1; O2SAT 97
[2021-10-15] MEDS: Piperacillin Sodium/Tazobactam 3.375 GM in 0.9 % Sodium Chloride 50 ML IV ×3 (04:00→15:24)
[2021-10-15 06:20] LABS: MANUAL DIFF FLAG NO
[2021-10-15 06:27] LABS: Basophils Absolute Auto 0.1 X10*3/uL (0.0-0.2); Basophils Percent Auto 0.7 % (0-2); Eosinophils Absolute Auto 0.2 X10*3/uL (0.0-0.4); Eosinophils Percent Auto 2.7 % (0-4); Hematocrit 40.7 % (37.0-47.0); Imm Gran Abs Auto 0.04 X10*3/uL (0.00-0.03); Imm Gran Pct Auto 0.6 % (0.0-0.4); Lymphocytes Absolute Auto 1.3 X10*3/uL (1.2-4.9); Lymphocytes Percent Auto 19.7 % (20-40); Mean Corpuscular HGB Conc 31.9 g/dl (31.0-35.0); Mean Corpuscular Hemoglobin 27.7 pg (27.0-33.0); Mean Corpuscular Volume 86.6 fL (80.0-98.0); Mean Platelet Volume 9.8 fL (9.4-12.3); Monocytes Absolute Auto 0.6 X10*3/uL (0.1-1.2); Monocytes Percent Auto 9.1 % (2-11); Neutrophils Absolute Auto 4.5 x10*3/uL (2.0-8.3); Neutrophils Percent Auto 67.2 % (45-73); Platelet Count 233 X10*3/uL (160-400); Red Cell Distribution Width 14.1 % (11.0-16.0); White Blood Count 6.7 X10*3/uL (4.8-10.8)
[2021-10-15 06:56] LABS: INTERNATIONAL NORM RATIO 1.2 (0.9-1.1); Prothrombin Time 13.5 SEC (9.9-13.0)
[2021-10-15 07:06] LABS: Alanine Aminotransferase 16 U/L (0-31); Alkaline Phosphatase 52 U/L (39-117); Anion Gap 14 (12-20); Aspartate Amino Transferase 14 U/L (5-31); Bilirubin Total 1.6 mg/dL (0.0-1.0); Blood Urea Nitrogen 16 mg/dL (9-16); Calcium 8.5 mg/dL (8.4-10.2); Carbon Dioxide 25 mmol/L (22-29); Chloride 105 mmol/L (96-108); Creatinine Clr Calc Pharmacy 107.5; Estimated Glomerular Filt Rate > 60; Glucose Fasting 94 mg/dL (60-99); Potassium 3.8 mmol/L (3.3-5.1); Sodium 140 mmol/L (135-145); Total Protein 5.7 g/dL (6.5-8.0)
[2021-10-15 07:25] VITALS: BP 140/78; PULSE 74; RESP 18; TEMP 36; O2SAT 97
[2021-10-15] MEDS: guaiFENesin DM 200/20/10 ML 10 ML SYRUP PO ×2 (09:09→15:23)
[2021-10-15] MEDS: Memantine HCl 10 MG TABLET PO (09:09)
[2021-10-15] MEDS: 0.9 % Sodium Chloride Flush 3 ML SYRINGE IVFLUSH ×2 (09:09→15:24)
[2021-10-15] MEDS: busPIRone HCl 5 MG TABLET 7.5 MG PO (09:09)
[2021-10-15] MEDS: Amiodarone HCL 200 MG TABLET 100 MG PO (09:09)
[2021-10-15 11:25] VITALS: BP 131/69; PULSE 65; RESP 18; TEMP 36.1; O2SAT 100
--- NOTE | 2021-10-15 12:09 | MHC.CM.PN ---
PER HOSPITALIST PT MEDICALLY CLEARED FOR D/C BACK TO LTC AT [facility], CM CONTACTED PT'S TERRI AT 12PM AT [facility] [address], IMM REVIEWED AND WILL BE SENT VIA CERTIFIED MAIL PER DISCUSSION, TERRI IS AGREEABLE TO DCP, [facility] HAS REQUESTED A 4PM TRANSFER W/[facility].
[2021-10-15 12:56] LABS: COVID-19 Test Negative (Negative); IDNOW Serial# 16C4AD1C
--- NOTE | 2021-10-15 14:55 | P.DS_ITS ---
DS: Providers Provider Date of Service: 10/15/21 Date of admission: 10/11/21 17:29 Primary care physician: Karla Physician DS: Diagnosis Discharge Diagnosis (1) Pneumonia: Status: Acute (2) Hematoma of rectus sheath: Status: Acute (3) Persistent atrial fibrillation: Status: Acute DS: Summary Hospital Course Hospital Course: Chief Complaint:? shortness of breath and cough 80-year-old female resident of nursing facility? with underlying history of dementia, atrial fibrillation on Xarelto, was sent to [facility] for evaluation of lethargy, weakness shortness of breath and dry cough of 2-3 days duration chest x-ray at [facility] showed no evidence of pneumonia this morning patient was noted to be lethargic weak compared to her baseline persistent dry cough therefore paramedics were called and patient was brought into [place] [facility] patient was noted to have low-grade fever, she was tachypneic tachycardic, patient at present is awake alert able to answer questions appropriately, she denies headache, dizziness, denies nausea, vomiting, denies abdominal pain denies recent fall, denies urinary symptoms of urgency frequency, workup in the emergency room revealed atrial fibrillation on EKG, CT of the chest without IV contrast showed? opacities question atelectasis versus developing right lower lobe infiltrate, thyroid gland was enlarged and heterogen ous and radiologist recommended an ultrasound, CT scan of the abdomen and pelvis without IV contrast revealed a large 14 cm left anterior rectus sheath hematoma, INR? noted to be 2,? patient receive a dose of Kcentra 2500 units IV and vitamin K 10 units? and now being admitted to [facility] with continued monitoring of CBC and treatment for pneumonia. hospital course: 80-year-old woman? resident of nursing facility with multiple medical problems including chronic atrial fibrillation ,chronic polycythemia, chronic congestive heart failure, anxiety, hypertension, vascular demand sent to [facility] due to symptoms of cough generalized weakness and lethargy workup in the emergency room revealed left abdominal rectus sheath muscle hematoma developing pneumonia, patient noted to have drop in her hematocrit from her baseline, patient received IV vitamin K and Kcentra 2500 units IV and admitted for continued monitoring and treatment for developing pneumonia and hematoma.? Left abdominal rectus sheath muscle hematoma,?likely due to coughing of 2-3 days duration with use of Xarelto, patient hematocrit dropped but remained stable since had high hematocrit due to history of polycythemia did not require blood transfusion, will recommend to follow CBC in couple days, Xarelto has been discontinued can be restarted as per PCP discretion , patient received vitamin K and Kcentra 2500 units. Sepsis due to right lower lobe pneumonia checks x-ray noted to have developing pneumonia patient was noted to be febrile tachypneic and tachycardic on admission treated with IV antibiotics now transitioned to by mouth antibiotic blood culture showed no growth, urine culture grew E coli resistant to penicillin therefore being discharged on Ceftin 500 mg twice daily to cover both pneumonia and urinary tract infection, continue cough medication for next few days ?Hypertension noted to have a low blood pressure therefore home medications including Lasix, hydralazine and lisinopril have been held follow BP closely and resume medications as needed ?chronic persistent atrial fibrillation continue amiodarone ventricular rate stable hold Xarelto as above ?polycythemia being followed by Dr. Manzano as outpatient, follow CBC on 10/18, hematocrit dropped but remained stable ?vascular dementia with no behavioral issues continue Aricept and Namenda ?Morbid? obesity recommend low-calorie diet Time Spent with Patient Time attestation: Total time spent providing and/or coordinating discharge services: Discharge coordination time: Greater than 30 minutes Quality: Safe Use of Opioids Does Pt have an Active Cancer Diagnosis on the Problem List?: No Quality: Stroke Does the patient have a stroke diagnosis?: No Physical Exam Vital Signs: Vital Signs: Last Vital Signs Temp 96.9 F 10/15/21 11:25 Pulse 65 10/15/21 11:25 Resp 18 10/15/21 11:25 BP 131/69 10/15/21 11:25 Pulse Ox 100 10/15/21 11:25 BMI result Body Mass Index 44.2 Const: Other: General awake alert, no acute distress. Neck no JVD. CVS regular rate rhythm, Respiratory lungs clear to auscultation, no respiratory distress, no wheeze, no rhonchi. Gastrointestinal abdomen soft, nontender, bowel sounds audible, no guarding , no rigidity. Extremities no edema. Neuro moving all 4 extremity speech clear. DS: Data Data Completed and Pending Labs on day of discharge: Laboratory Results - last 24 hr 10/15/21 10/15/21 10/15/21 05:24 05:24 05:24 WBC 6.7 RBC 4.70 Hgb 13.0 Hct 40.7 MCV 86.6 MCH 27.7 MCHC 31.9 RDW 14.1 Plt Count 233 MPV 9.8 Immature Gran % (Auto) 0.6 H Neut % (Auto) 67.2 Lymph % (Auto) 19.7 L Larue % (Auto) 9.1 Eos % (Auto) 2.7 Baso % (Auto) 0.7 Lymph # (Auto) 1.3 Larue # (Auto) 0.6 Eos # (Auto) 0.2 Baso # (Auto) 0.1 Abs Immat Gran (auto) 0.04 H Absolute Neuts (auto) 4.5 Absolute Nucleated RBC 0.000 Nucleated RBC % (auto) 0.0 PT 13.5 H INR 1.2 H Sodium 140 Potassium 3.8 Chloride 105 Carbon Dioxide 25 Anion Gap 14 BUN 16 Creatinine 0.62 Estim Creat Clear Calc 107.5 Estimated GFR > 60 Fasting Glucose 94 Calcium 8.5 Total Bilirubin 1.6 H AST 14 ALT 16 Alkaline Phosphatase 52 D Total Protein 5.7 L Albumin 3.0 L COVID-19 (RADHA) COVID-19 Clin Com 10/15/21 12:20 WBC RBC Hgb Hct MCV MCH MCHC RDW Plt Count MPV Immature Gran % (Auto) Neut % (Auto) Lymph % (Auto) Larue % (Auto) Eos % (Auto) Baso % (Auto) Lymph # (Auto) Larue # (Auto) Eos # (Auto) Baso # (Auto) Abs Immat Gran (auto) Absolute Neuts (auto) Absolute Nucleated RBC Nucleated RBC % (auto) PT INR Sodium Potassium Chloride Carbon Dioxide Anion Gap BUN Creatinine Estim Creat Clear Calc Estimated GFR Fasting Glucose Calcium Total Bilirubin AST ALT Alkaline Phosphatase Total Protein Albumin COVID-19 (RADHA) Negative COVID-19 Clin Com See Note Preliminary micro results at discharge 10/11/21 13:59 Blood Culture - Preliminary Blood - Venous No growth after 48 hours. 10/11/21 13:25 Blood Culture - Preliminary Blood - Venous No growth after 48 hours. Discharge Plan Discharge Patient Disposition: [facility] Discharge Diagnosis: left rectus sheath hematoma left lower lobe pneumonia chronic atrial fibrillation Referrals: Physician,None [Primary Care Provider] - 1 Week Discharge Medications: New dextromethorphan-guaifenesin 10-100 mg/5 mL Syrup 10 ml PO TID Qty: 240 0RF acetaminophen 325 mg Tablet 650 mg PO Q6H PRN (Reason: Pain, Mild (Pain Scale 1-3)) Qty: 30 0RF cefuroxime axetil 500 mg tablet 500 mg PO Q12H Qty: 10 0RF Continued albuterol sulfate 90 mcg/actuation Hfa Aerosol Inhaler 2 puff INHALATION Q4H PRN (Reason: Respiratory Distress) 0RF ammonium lactate 12 % Lotion 1 appl TOPICAL BID PRN (Reason: Dry Skin) 0RF bisacodyl 10 mg Suppository 10 mg MD DAILY PRN (Reason: Constipation) 0RF cholecalciferol (vitamin D3) [Vitamin D3] 125 mcg (5,000 unit) Tablet 125 mcg PO MO@1000 0RF donepezil 10 mg tablet 1 tab PO BEDTIME 0RF buspirone 7.5 mg tablet 1 tab PO BID 0RF amiodarone 100 mg tablet 1 tab PO DAILY 0RF memantine 10 mg tablet 1 tab PO BID 0RF Fleet Enema 1 unit MD DAILY PRN (Reason: Constipation) 0RF Milk of Magnesia 30 ml PO DAILY PRN (Reason: Constipation) 0RF Discontinued furosemide 40 mg Tablet 40 mg PO DAILY 0RF lisinopril 5 mg Tablet 5 mg PO BEDTIME 0RF guaifenesin [Mucinex] 600 mg Tablet Extended Release 12hr 600 mg PO BID 0RF hydralazine 25 mg tablet 1 tab PO TID 0RF acetaminophen [Tylenol Arthritis] 650 mg Tablet Extended Release 650 mg PO Q4H PRN (Reason: FEVER/PAIN) 0RF Xarelto 20 mg tablet 1 tab PO DAILY@1700 0RF Discharge Orders: Discharge Order (Routine); Ordered 10/15/21 Ordered By: Violet Vargas Diet: advance to usual diet Activity on Discharge: As tolerated Stand Alone Forms: Patient Portal Discharge page Care Plan Goals: continue by mouth antibiotics as ordered, take cough medication for next 2-3 days and discontinue, avoid NSAIDs and aspirin, due to rectus sheath hematoma Xarelto held can be resumed as per primary care physician discretion, noted to have soft blood pressures therefore blood pressure medications held, resume BP meds as tolerated resume Lasix if noted to have shortness of breath of fluid overload. urine culture grew E coli sensitive to ceftriaxone follow CBC on 10/18 Health Concerns: follow blood pressure and cardiac status closely to resume home medications including Lasix, resume Xarelto as per primary care physician discretion. Plan of Treatment: Close outpatient follow-up with primary care physician in 1-2 weeks Assessment: as per discharge summary
[2021-10-15 15:33] VITALS: BP 116/70; PULSE 67; RESP 17; TEMP 36.3; O2SAT 99
== END 2021-10-15 15:59 | disposition skilled nursing facility (03) | DRG 871 ==
LOC: HO.ED 16:32 → HO.EDOVER 18:26 → HO.S3 10-12 18:06
PROVIDERS: Hospitalist; Admitting Provider Hospitalist; Emergency Provider Emergency Medicine Emergency Medical Services; Visit Provider Hospitalist
DX: A41.9 Sepsis, unspecified organism (principal); J18.9 Pneumonia, unspecified organism; I48.19 Other persistent atrial fibrillation; Z68.41 Body mass index [BMI] 40.0-44.9, adult; M79.81 Nontraumatic hematoma of soft tissue; F41.9 Anxiety disorder, unspecified; F01.50 Vascular dementia, unspecified severity, without behavioral disturbance, psychotic disturbance, mood disturbance, and anxiety; F32.A Depression, unspecified; E66.01 Morbid (severe) obesity due to excess calories; D75.1 Secondary polycythemia; Z20.822 Contact with and (suspected) exposure to COVID-19; Z79.899 Other long term (current) drug therapy
CPT/HCPCS: 36415; 71250; 74176; 80048; 80053; 80164; 81001; 82550; 82947; 83605; 83690; 84484; 85025; 85027; 85610; 85730; 86850; 86900; 86901; 87040; 87086; 87088; 87186; 87502; 87635; 93005; 96365; 96367; 99284; J2543; J3430; J7168

== ENCOUNTER 2021-10-23 09:09 | Inpatient (IN) | payer MEDICARE, MEDICAID, SELFPAY ==
[2021-10-23] VITALS (30 sets, daily range): BP systolic 83–191; BP diastolic 48–113; PULSE 68–97; RESP 10–30; TEMP 34.9–38.4; O2SAT 80–100; BMI 41.7
--- NOTE | ~2021-10-23 | CT_ITS ---
EXAMINATION: CT HEAD WITHOUT CONTRAST CLINICAL INFORMATION: Unresponsive COMPARISON: April 2019. TECHNIQUE: Contiguous axial imaging was performed from the skull base to vertex without intravenous administration of contrast. This CT examination was performed using dose optimization techniques as appropriate, variously including the following: *Automated exposure control *Adjustment of mA and/or kV according to patient size (this includes techniques or standardized protocols for targeted exams where dose is matched to indication/reason for exam; i.e. extremities or head) *Use of iterative reconstruction technique DLP: 712 mGy-cm FINDINGS: There is no evidence of acute intracranial hemorrhage or territorial infarction. No abnormal mass effect or midline shift is seen. Mast to white matter differentiation is well preserved. No extra-axial fluid collections are identified. Ventricles and then again appear distended, slightly out of proportion to the degree of sulcal prominence. Atrophy is observed. Possibility of normal pressure hydrocephalus considered. Hypodense changes are seen in periventricular and subcortical white matter likely related to chronic small vessel ischemic disease. The osseous structures and soft tissues are normal. The mastoid air cells and visualized portions of the paranasal sinuses are well aerated. CT/CT head/brain wo con IMPRESSION: No evidence for bleed or mass effect. Atrophy with change of chronic small vessel ischemic disease of white matter. The ventricles are again noted to be distended, slightly out of proportion to the degree of sulcal prominence. Underlying normal pressure hydrocephalus is a consideration.
--- NOTE | ~2021-10-23 | XR_ITS ---
EXAMINATION: XR CHEST CLINICAL INFORMATION: Follow-up pneumonia. COMPARISON: Chest 10/23/2021 TECHNIQUE: Frontal view of the chest was obtained. FINDINGS: The lungs are hypoexpanded with minimal bibasilar atelectasis. There is a left IJ catheter with the tip at the brachiocephalic venous junction. The endotracheal tube is 1.5 cm above the nimisha pointing towards the right bronchus. Enteric tube tip is below diaphragm in the stomach not in the [id number]. Heart size is enlarged and pulmonary vascularity is normal. No gross bony abnormality is seen. XR/XR chest 1V IMPRESSION: 1. Mild cardiomegaly with bibasilar atelectasis and hyperexpanded lungs. 2. Left central venous catheter and new enteric tube tip in the stomach are stable. The endotracheal tube is 1.5 cm above the nimisha directed towards the right bronchus.
--- NOTE | ~2021-10-23 | XR_ITS ---
EXAMINATION: XR CHEST CLINICAL INFORMATION: Hypoxia, altered mental status COMPARISON: April 2019. TECHNIQUE: AP supine portable view of the chest was obtained. 1005 hours FINDINGS: ET tube is in position, approximately 4.6 cm above the nimisha. Patient is rotated to the right. The evaluation is at low lung volumes with some compression of parenchymal markings. Mild increased prominence of pulmonary vasculature observed which can be seen with underlying mild vascular congestion. No distinct pleural effusions. No appreciable dominant consolidations. XR/XR chest 1V IMPRESSION: ET tube in position. Some compression of parenchymal markings as noted above, but mild increased prominence of pulmonary vasculature can be seen with underlying mild vascular congestion.
--- NOTE | ~2021-10-23 | XR_ITS ---
EXAMINATION: XR CHEST CLINICAL INFORMATION: Left IJ CVC placement COMPARISON: Chest x-ray 10/23/2021 TECHNIQUE: Frontal view of the chest was obtained. 1:57 PM FINDINGS: Tubes and lines: 1. Left IJ catheter tip in superior vena cava about 2 cm proximal to the caval atrial junction. 2. Endotracheal tube tip about 5 cm proximal to the nimisha. Heart size is enlarged. Calcifications of thoracic aorta. There is no acute abnormality. No pulmonary vascular congestion. Lungs are normally aerated. No pleural effusion or pneumothorax. XR/XR chest 1V IMPRESSION: 1. Left IJ catheter tip in superior vena cava about 2 cm proximal to the caval atrial junction. 2. Endotracheal tube tip about 5 cm proximal to the nimisha. 3. No pneumothorax.
--- NOTE | ~2021-10-23 | MR_ITS ---
MRI OF THE BRAIN WITHOUT IV CONTRAST INDICATION: Seizures versus encephalitis. COMPARISON: Head CT 10/23/2021. TECHNIQUE: Multiplanar multisequence MR imaging of the brain was obtained without IV contrast. 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 Cytotoxic edema within the posterior fossa results in partial effacement of the fourth ventricle superiorly. There is a punctate acute infarct within the right occipital lobe as well. No hemorrhagic transformation. Severe lateral and third ventriculomegaly is slightly progressed and likely secondary to a combination of cerebral volume loss and developing ventricular obstruction from mass effect within the posterior fossa. 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 CTA advised to assess intracranial vascular patency. Background chronic microangiopathy. Global cerebral volume loss. Mucosal thickening throughout the paranasal sinuses. 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 There is a punctate acute infarct within the right occipital lobe as well. Cytotoxic edema within the posterior fossa results in partial effacement of the fourth ventricle superiorly. No hemorrhagic transformation. - Severe lateral and third ventriculomegaly is slightly progressed and likely secondary to a combination of cerebral volume loss and developing ventricular obstruction from mass effect within the posterior fossa. - Susceptibility signal within the basilar artery tip concerning for basilar artery tip thrombosis. CTA advised to assess intracranial vascular patency. Findings discussed with Dr. Lock at 9:07 AM on 10/25/2021.
--- NOTE | 2021-10-23 09:17 | ECG_ITS ---
Test Reason : UNRESPONSIVE Blood Pressure : / mmHG Vent. Rate : 075 BPM Atrial Rate : 000 BPM P-R Int : 000 ms QRS Dur : 084 ms QT Int : 370 ms P-R-T Axes : 000 044 019 degrees QTc Int : 413 ms Atrial fibrillation Abnormal ECG When compared with ECG of 11-OCT-2021 13:16, No significant change was found Referred By: Carleen Vaughn Electronically Signed By:DARVIN KEATING MD
--- NOTE | 2021-10-23 09:28 | ED.AMS ---
HPI - Altered Mental Status General Chief Complaint: Altered Mental Status Stated Complaint: FOUND UNRESPONSIVE @ SNF PER EMS Time Seen by Provider: 10/23/21 09:17 Source: EMS, RN notes reviewed and old records reviewed Mode of arrival: EMS Limitations: altered mental status History of Present Illness HPI narrative: 80 y/o female with history of vascular dementia, atrial fibrillation on Xarleto, HTN, PVD, HFpEF, UTI, recent admission to [facility] for a 14cm rectus sheath hematoma, pneumonia and UTI who presents to the ER via EMS from SNF wtih altered mental status. She was reportedly was found unresponsive and gurgling at 8:30am. Reportedly was last seen normal at 10pm last night. On EMS arrival patient was gurgling and suctioned for thick green mucus. There was question of possible seizure like activity with some arm twitching but no witnessed tonic clonic movements and no history of seizures. She vomited EN route. She was placed on supplemental oxygen and brought to the ER for further evaluation. In the ER patient was altered, winces to sternal rub, not protecting her airway. She was hypoxic to 80% on room air with copious amounts of thin yellow oral secretions. Spoke with the healthcare wrap her son Tobi as well as her Aba who agree she is a full code and would like everything done at this time. She has never been intubated per their report. They report her baseline is awake, alert, conversant but confused. MD complaint: altered mental status Onset (ago): hour(s) Time: 08:30 Timing confirmed by: caregiver Severity: severe Consistency of symptoms: getting Worse Treatments prior to arrival: oxygen Related Data Home Medications Medication Instructions Recorded Confirmed amiodarone 100 mg tablet 1 tab PO DAILY 03/20/21 10/23/21 buspirone 7.5 mg tablet 1 tab PO BID 03/20/21 10/23/21 donepezil 10 mg tablet 1 tab PO BEDTIME 03/20/21 10/23/21 memantine 10 mg tablet 1 tab PO BID 03/20/21 10/23/21 albuterol sulfate 90 mcg/actuation 2 puff INHALATION Q4H PRN 10/11/21 10/23/21 aerosol inhaler ammonium lactate 12 % lotion 1 appl TOPICAL BID PRN 10/11/21 10/23/21 bisacodyl 10 mg rectal suppository 10 mg SC DAILY PRN 10/11/21 10/23/21 cholecalciferol (vitamin D3) 125 125 mcg PO MO@1000 10/11/21 10/23/21 mcg (5,000 unit) tablet (Vitamin D3) furosemide 40 mg tablet 40 mg PO DAILY 10/23/21 10/23/21 lisinopril 5 mg tablet 5 mg PO DAILY 10/23/21 10/23/21 magnesium hydroxide 400 mg/5 mL 30 ml PO DAILY PRN 10/23/21 10/23/21 oral suspension (Milk of Magnesia) Previous Rx's Medication Instructions Recorded acetaminophen 325 mg tablet 650 mg PO Q6H PRN #30 tab 10/15/21 dextromethorphan-guaifenesin 10 10 ml PO TID #240 ml 10/15/21 mg-100 mg/5 mL oral syrup Allergies Allergy/AdvReac Type Severity Reaction Status Date / Time No Known Allergies Allergy Unverified 02/09/20 15:39 [No Known Allergies*] Review of Systems Review of Systems: Yes Unobtainable due to mental condition and Unobtainable due to mental status [facility] Past Medical History Medical History (Updated 10/23/21 @ 11:10 by LUIZ Mcclelland) Anxiety Chronic CHF Depression Hemoglobinemia HTN (hypertension) Osteoarthritis Overactive bladder Persistent atrial fibrillation Polycythemia Vascular dementia of acute onset without behavioral disturbance Social History Social History Household Members: Other Housing: Skilled Nursing Alcohol intake: unknown Patient Tobacco Use Status: Never used Tobacco Use of substances other than those prescribed or required for medical reasons: Unable to respond Advance Directives: Yes Advance Directives on File: Yes Advance Directives Date on File: 10/16/21 service: No Current occupational status: retired Physical Exam ED Vital Signs: Vital Signs - 24 hr 10/23/21 09:18 10/23/21 10:00 10/23/21 10:05 Temperature 99.7 F Pulse Rate 80 76 93 Respiratory Rate 14 24 H 16 Blood Pressure 143/79 H 134/76 191/113 H Pulse Oximetry 80 L 100 10/23/21 11:00 10/23/21 11:37 10/23/21 12:00 Temperature Pulse Rate 70 79 80 Respiratory Rate 20 16 17 Blood Pressure 122/80 109/60 100/57 L Pulse Oximetry 99 96 96 BMI result Body Mass Index 41.7 Appearance: Elderly female lying in the stretcher, unresponsive, gurgling. Eyes: Pupils pinpoint, equal, round and reactive to light. ENT: Pharynx with moist mucous membranes, copious amount of thin yellow oral secretions. Neck: Normal inspection. Neck supple. CVS: Irregularly irregular, regular rate. unable to appreciate any murmur. Respiratory: Respiratory rate in the teens, intermittently labored, coarse and rhonchorous thoughout, unable to protect her airway. Abdomen: Obese, soft and nontender. +BS x4 Skin: Skin warm and dry. Normal skin color. Normal skin turgor. No rashes. Extremities: 2+ lower extremity edema. Neuro: Unresponsive, winces to sternal rub. Does not follow commands or withdraw to pain Course Course Course Narrative: 80-year-old female with history of vascular dementia, AFib on Xarelto, PVD, heart failure with preserved EF, history of pneumonia and UTI as well as recent admission to [facility] for a rectus sheath hematoma who presents to the ER with altered mental status, acute hypoxic respiratory failure. On arrival she is hypoxic to 80% and unable to protect her airway. Code status was confirmed with family who would like everything done at this time. Will plan for intubation. Reevaluation(s) Reevaluation #1: 10:15 am - Patient successfully intubated. #8 ETT [address] [facility]. CXR confirmed placement. Patient to CT scan now. Will cover for asp pneumonia/HCAP with zosyn/vanco. will send respiratory culture. Reevaluation #2: 11:30 -ABG 7.46/35/209 - Fio2 weaned to 40%. Chest x-ray with mild increased prominence of the pulmonary vascular her, mild vascular congestion no pleural effusions or focal consolidations visualized. procalcitonin is low. CT head with atrophy and ventricular enlargement. no acute bleed or stroke. Of note patient has been taken off her Xarelto with a history of the recent rectus sheath hematoma. Will plan for admission to ICU for further management. Aba updated on plan of care at the [facility]. Reevaluation #3: 12:30 - Patient hypotensive 90/50. Propofol wean down. Will give 500 cc bolus. Patient to be admitted to ICU. Nursing to call report. Consultations Consultation #1: ICU - Dr. Lock MDM - Altered Mental Status Medical Records Attestation: I reviewed the patient's medical records. Lab Data Attestation: I reviewed the patient's lab results. Result diagrams: 10/23/21 09:46 10/23/21 09:45 Labs: Lab Results 10/23/21 10/23/21 10/23/21 Range/Units 09:28 09:43 09:43 WBC (4.8-10.8) X10*3/uL RBC (4.20-5.50) X10*6/uL Hgb (12.0-16.0) g/dl Hct (37.0-47.0) % MCV (80.0-98.0) fL MCH (27.0-33.0) pg MCHC (31.0-35.0) g/dl RDW (11.0-16.0) % Plt Count (160-400) X10*3/uL MPV (9.4-12.3) fL Immature Gran % (Auto) (0.0-0.4) % Neut % (Auto) (45-73) % Lymph % (Auto) (20-40) % [place] % (Auto) (2-11) % Eos % (Auto) (0-4) % Baso % (Auto) (0-2) % Lymph # (Auto) (1.2-4.9) X10*3/uL [place] # (Auto) (0.1-1.2) X10*3/uL Eos # (Auto) (0.0-0.4) X10*3/uL Baso # (Auto) (0.0-0.2) X10*3/uL Abs Immat Gran (auto) (0.00-0.03) X10*3/uL Absolute Neuts (auto) (2.0-8.3) x10*3/uL Absolute Nucleated RBC (0.0-0.012) X10*3/uL Nucleated RBC % (auto) (0.0-0.2) /100WBC PT (9.9-13.0) SEC INR (0.9-1.1) APTT (24.1-38.0) SEC O2 Saturation % ABG pH at Pt Temp (7.35-7.45) ABG pCO2 at Pt Temp (32-45) mmHg ABG pO2 at Pt Temp (83-108) mmHg ABG HCO3 (22-26) mmol/L ABG Base Excess (Actual) mmol/L VBG pH 7.45 H (7.32-7.43) VBG pCO2 32 mmHg VBG pO2 138 mmHg VBG HCO3 23 (22-26) mmol/L VBG O2 Saturation 99.0 % VBG Base Excess 0.4 mmol/L Sodium (135-145) mmol/L Potassium (3.3-5.1) mmol/L Chloride (96-108) mmol/L Carbon Dioxide (22-29) mmol/L Anion Gap (12-20) BUN (9-16) mg/dL Creatinine (0.5-1.4) mg/dL Estim Creat Clear Calc Estimated GFR POC Glucose 104 (60-115) mg/dL Random Glucose (60-115) mg/dL Lactic Acid 1.9 (0.5-2.0) mmol/L Calcium (8.4-10.2) mg/dL Magnesium (1.6-2.6) mg/dL Total Bilirubin (0.0-1.0) mg/dL Direct Bilirubin (0.0-0.5) mg/dL AST (5-31) U/L ALT (0-31) U/L Alkaline Phosphatase (39-117) U/L Ammonia (13-55) umol/L Troponin I High Sens B-Natriuretic Peptide (<100) pg/mL Total Protein (6.5-8.0) g/dL Albumin (3.5-5.0) g/dL Procalcitonin ng/mL TSH (0.32-4.0) uIU/mL Free T4 (0.71-1.85) ng/dL Urine Color Urine Appearance Urine pH (5.0-8.0) Ur Specific [place] (1.005-1.025) Urine Protein (NEG-TRACE) MG/DL Urine Glucose (UA) (NEG) MG/DL Urine Ketones (NEG) MG/DL Urine Blood (NEG) Urine Nitrite (NEG) Ur Leukocyte Esterase (NEG) Urine Opiates Screen (Not Detect) Urine Fentanyl Screen (Not Detect) Ur Barbiturates Screen (Not Detect) Ur Phencyclidine Scrn (Not Detect) Ur Amphetamines Screen (Not Detect) U Benzodiazepines Scrn (Not Detect) Urine Cocaine Screen (Not Detect) U Marijuana (THC) Screen (Not Detect) COVID-19 (RADHA) (Negative) COVID-19 Clin Com Influenza Type A (PAMELA) (Negative) Influenza Type B (PAMELA) (Negative) Influenza A & B Note 10/23/21 10/23/21 10/23/21 Range/Units 09:45 09:45 09:46 WBC 10.1 (4.8-10.8) X10*3/uL RBC 5.78 H D (4.20-5.50) X10*6/uL Hgb 16.1 H D (12.0-16.0) g/dl Hct 50.8 H D (37.0-47.0) % MCV 87.9 (80.0-98.0) fL MCH 27.9 (27.0-33.0) pg MCHC 31.7 (31.0-35.0) g/dl RDW 15.6 (11.0-16.0) % Plt Count 267 (160-400) X10*3/uL MPV 9.9 (9.4-12.3) fL Immature Gran % (Auto) 0.6 H (0.0-0.4) % Neut % (Auto) 74.9 H (45-73) % Lymph % (Auto) 16.1 L (20-40) % [place]hen[place] % (Auto) 6.8 (2-11) % Eos % (Auto) 1.1 (0-4) % Baso % (Auto) 0.5 (0-2) % Lymph # (Auto) 1.6 (1.2-4.9) X10*3/uL [place] # (Auto) 0.7 (0.1-1.2) X10*3/uL Eos # (Auto) 0.1 (0.0-0.4) X10*3/uL Baso # (Auto) 0.1 (0.0-0.2) X10*3/uL Abs Immat Gran (auto) 0.06 H (0.00-0.03) X10*3/uL Absolute Neuts (auto) 7.6 (2.0-8.3) x10*3/uL Absolute Nucleated RBC 0.000 (0.0-0.012) X10*3/uL Nucleated RBC % (auto) 0.0 (0.0-0.2) /100WBC PT (9.9-13.0) SEC INR (0.9-1.1) APTT (24.1-38.0) SEC O2 Saturation % ABG pH at Pt Temp (7.35-7.45) ABG pCO2 at Pt Temp (32-45) mmHg ABG pO2 at Pt Temp (83-108) mmHg ABG HCO3 (22-26) mmol/L ABG Base Excess (Actual) mmol/L VBG pH (7.32-7.43) VBG pCO2 mmHg VBG pO2 mmHg VBG HCO3 (22-26) mmol/L VBG O2 Saturation % VBG Base Excess mmol/L Sodium 139 (135-145) mmol/L Potassium 5.0 D (3.3-5.1) mmol/L Chloride 105 (96-108) mmol/L Carbon Dioxide 24 (22-29) mmol/L Anion Gap 15 (12-20) BUN 13 (9-16) mg/dL Creatinine 0.71 (0.5-1.4) mg/dL Estim Creat Clear Calc 96.7 Estimated GFR > 60 POC Glucose (60-115) mg/dL Random Glucose 100 (60-115) mg/dL Lactic Acid (0.5-2.0) mmol/L Calcium 9.6 D (8.4-10.2) mg/dL Magnesium 2.4 (1.6-2.6) mg/dL Total Bilirubin 1.7 H (0.0-1.0) mg/dL Direct Bilirubin 0.8 H (0.0-0.5) mg/dL AST 13 (5-31) U/L ALT 16 (0-31) U/L Alkaline Phosphatase 80 D (39-117) U/L Ammonia (13-55) umol/L Troponin I High Sens B-Natriuretic Peptide (<100) pg/mL Total Protein 7.6 D (6.5-8.0) g/dL Albumin 3.8 D (3.5-5.0) g/dL Procalcitonin 0.05 ng/mL TSH (0.32-4.0) uIU/mL Free T4 (0.71-1.85) ng/dL Urine Color Urine Appearance Urine pH (5.0-8.0) Ur Specific [place] (1.005-1.025) Urine Protein (NEG-TRACE) MG/DL Urine Glucose (UA) (NEG) MG/DL Urine Ketones (NEG) MG/DL Urine Blood (NEG) Urine Nitrite (NEG) Ur Leukocyte Esterase (NEG) Urine Opiates Screen (Not Detect) Urine Fentanyl Screen (Not Detect) Ur Barbiturates Screen (Not Detect) Ur Phencyclidine Scrn (Not Detect) Ur Amphetamines Screen (Not Detect) U Benzodiazepines Scrn (Not Detect) Urine Cocaine Screen (Not Detect) U Marijuana (THC) Screen (Not Detect) COVID-19 (RADHA) (Negative) COVID-19 Clin Com Influenza Type A (PAMELA) (Negative) Influenza Type B (PAMELA) (Negative) Influenza A & B Note 10/23/21 10/23/21 10/23/21 Range/Units 09:47 09:47 10:26 WBC (4.8-10.8) X10*3/uL RBC (4.20-5.50) X10*6/uL Hgb (12.0-16.0) g/dl Hct (37.0-47.0) % MCV (80.0-98.0) fL MCH (27.0-33.0) pg MCHC (31.0-35.0) g/dl RDW (11.0-16.0) % Plt Count (160-400) X10*3/uL MPV (9.4-12.3) fL Immature Gran % (Auto) (0.0-0.4) % Neut % (Auto) (45-73) % Lymph % (Auto) (20-40) % [place] % (Auto) (2-11) % Eos % (Auto) (0-4) % Baso % (Auto) (0-2) % Lymph # (Auto) (1.2-4.9) X10*3/uL [place] # (Auto) (0.1-1.2) X10*3/uL Eos # (Auto) (0.0-0.4) X10*3/uL Baso # (Auto) (0.0-0.2) X10*3/uL Abs Immat Gran (auto) (0.00-0.03) X10*3/uL Absolute Neuts (auto) (2.0-8.3) x10*3/uL Absolute Nucleated RBC (0.0-0.012) X10*3/uL Nucleated RBC % (auto) (0.0-0.2) /100WBC PT 13.1 H (9.9-13.0) SEC INR 1.2 H (0.9-1.1) APTT 44.4 H (24.1-38.0) SEC O2 Saturation % ABG pH at Pt Temp (7.35-7.45) ABG pCO2 at Pt Temp (32-45) mmHg ABG pO2 at Pt Temp (83-108) mmHg ABG HCO3 (22-26) mmol/L ABG Base Excess (Actual) mmol/L VBG pH (7.32-7.43) VBG pCO2 mmHg VBG pO2 mmHg VBG HCO3 (22-26) mmol/L VBG O2 Saturation % VBG Base Excess mmol/L Sodium (135-145) mmol/L Potassium (3.3-5.1) mmol/L Chloride (96-108) mmol/L Carbon Dioxide (22-29) mmol/L Anion Gap (12-20) BUN (9-16) mg/dL Creatinine (0.5-1.4) mg/dL Estim Creat Clear Calc Estimated GFR POC Glucose (60-115) mg/dL Random Glucose (60-115) mg/dL Lactic Acid (0.5-2.0) mmol/L Calcium (8.4-10.2) mg/dL Magnesium (1.6-2.6) mg/dL Total Bilirubin (0.0-1.0) mg/dL Direct Bilirubin (0.0-0.5) mg/dL AST (5-31) U/L ALT (0-31) U/L Alkaline Phosphatase (39-117) U/L Ammonia 33 (13-55) umol/L Troponin I High Sens Cancelled B-Natriuretic Peptide (<100) pg/mL Total Protein (6.5-8.0) g/dL Albumin (3.5-5.0) g/dL Procalcitonin ng/mL TSH (0.32-4.0) uIU/mL Free T4 (0.71-1.85) ng/dL Urine Color Urine Appearance Urine pH (5.0-8.0) Ur Specific [place] (1.005-1.025) Urine Protein (NEG-TRACE) MG/DL Urine Glucose (UA) (NEG) MG/DL Urine Ketones (NEG) MG/DL Urine Blood (NEG) Urine Nitrite (NEG) Ur Leukocyte Esterase (NEG) Urine Opiates Screen (Not Detect) Urine Fentanyl Screen (Not Detect) Ur Barbiturates Screen (Not Detect) Ur Phencyclidine Scrn (Not Detect) Ur Amphetamines Screen (Not Detect) U Benzodiazepines Scrn (Not Detect) Urine Cocaine Screen (Not Detect) U Marijuana (THC) Screen (Not Detect) COVID-19 (RADHA) (Negative) COVID-19 Clin Com Influenza Type A (PAMELA) (Negative) Influenza Type B (PAMELA) (Negative) Influenza A & B Note 10/23/21 10/23/21 10/23/21 Range/Units 10:26 10:27 10:30 WBC (4.8-10.8) X10*3/uL RBC (4.20-5.50) X10*6/uL Hgb (12.0-16.0) g/dl Hct (37.0-47.0) % MCV (80.0-98.0) fL MCH (27.0-33.0) pg MCHC (31.0-35.0) g/dl RDW (11.0-16.0) % Plt Count (160-400) X10*3/uL MPV (9.4-12.3) fL Immature Gran % (Auto) (0.0-0.4) % Neut % (Auto) (45-73) % Lymph % (Auto) (20-40) % [place] % (Auto) (2-11) % Eos % (Auto) (0-4) % Baso % (Auto) (0-2) % Lymph # (Auto) (1.2-4.9) X10*3/uL [place] # (Auto) (0.1-1.2) X10*3/uL Eos # (Auto) (0.0-0.4) X10*3/uL Baso # (Auto) (0.0-0.2) X10*3/uL Abs Immat Gran (auto) (0.00-0.03) X10*3/uL Absolute Neuts (auto) (2.0-8.3) x10*3/uL Absolute Nucleated RBC (0.0-0.012) X10*3/uL Nucleated RBC % (auto) (0.0-0.2) /100WBC PT (9.9-13.0) SEC INR (0.9-1.1) APTT (24.1-38.0) SEC O2 Saturation % ABG pH at Pt Temp (7.35-7.45) ABG pCO2 at Pt Temp (32-45) mmHg ABG pO2 at Pt Temp (83-108) mmHg ABG HCO3 (22-26) mmol/L ABG Base Excess (Actual) mmol/L VBG pH (7.32-7.43) VBG pCO2 mmHg VBG pO2 mmHg VBG HCO3 (22-26) mmol/L VBG O2 Saturation % VBG Base Excess mmol/L Sodium (135-145) mmol/L Potassium (3.3-5.1) mmol/L Chloride (96-108) mmol/L Carbon Dioxide (22-29) mmol/L Anion Gap (12-20) BUN (9-16) mg/dL Creatinine (0.5-1.4) mg/dL Estim Creat Clear Calc Estimated GFR POC Glucose (60-115) mg/dL Random Glucose (60-115) mg/dL Lactic Acid (0.5-2.0) mmol/L Calcium (8.4-10.2) mg/dL Magnesium (1.6-2.6) mg/dL Total Bilirubin (0.0-1.0) mg/dL Direct Bilirubin (0.0-0.5) mg/dL AST (5-31) U/L ALT (0-31) U/L Alkaline Phosphatase (39-117) U/L Ammonia (13-55) umol/L Troponin I High Sens 4.6 B-Natriuretic Peptide 180 H (<100) pg/mL Total Protein (6.5-8.0) g/dL Albumin (3.5-5.0) g/dL Procalcitonin ng/mL TSH 0.29 L (0.32-4.0) uIU/mL Free T4 1.93 H (0.71-1.85) ng/dL Urine Color Urine Appearance Urine pH (5.0-8.0) Ur Specific [place] (1.005-1.025) Urine Protein (NEG-TRACE) MG/DL Urine Glucose (UA) (NEG) MG/DL Urine Ketones (NEG) MG/DL Urine Blood (NEG) Urine Nitrite (NEG) Ur Leukocyte Esterase (NEG) Urine Opiates Screen (Not Detect) Urine Fentanyl Screen (Not Detect) Ur Barbiturates Screen (Not Detect) Ur Phencyclidine Scrn (Not Detect) Ur Amphetamines Screen (Not Detect) U Benzodiazepines Scrn (Not Detect) Urine Cocaine Screen (Not Detect) U Marijuana (THC) Screen (Not Detect) COVID-19 (RADHA) Negative (Negative) COVID-19 Clin Com See Note Influenza Type A (PAMELA) (Negative) Influenza Type B (PAMELA) (Negative) Influenza A & B Note 10/23/21 10/23/21 10/23/21 Range/Units 10:30 10:47 10:47 WBC (4.8-10.8) X10*3/uL RBC (4.20-5.50) X10*6/uL Hgb (12.0-16.0) g/dl Hct (37.0-47.0) % MCV (80.0-98.0) fL MCH (27.0-33.0) pg MCHC (31.0-35.0) g/dl RDW (11.0-16.0) % Plt Count (160-400) X10*3/uL MPV (9.4-12.3) fL Immature Gran % (Auto) (0.0-0.4) % Neut % (Auto) (45-73) % Lymph % (Auto) (20-40) % [place] % (Auto) (2-11) % Eos % (Auto) (0-4) % Baso % (Auto) (0-2) % Lymph # (Auto) (1.2-4.9) X10*3/uL [place] # (Auto) (0.1-1.2) X10*3/uL Eos # (Auto) (0.0-0.4) X10*3/uL Baso # (Auto) (0.0-0.2) X10*3/uL Abs Immat Gran (auto) (0.00-0.03) X10*3/uL Absolute Neuts (auto) (2.0-8.3) x10*3/uL Absolute Nucleated RBC (0.0-0.012) X10*3/uL Nucleated RBC % (auto) (0.0-0.2) /100WBC PT (9.9-13.0) SEC INR (0.9-1.1) APTT (24.1-38.0) SEC O2 Saturation % ABG pH at Pt Temp (7.35-7.45) ABG pCO2 at Pt Temp (32-45) mmHg ABG pO2 at Pt Temp (83-108) mmHg ABG HCO3 (22-26) mmol/L ABG Base Excess (Actual) mmol/L VBG pH (7.32-7.43) VBG pCO2 mmHg VBG pO2 mmHg VBG HCO3 (22-26) mmol/L VBG O2 Saturation % VBG Base Excess mmol/L Sodium (135-145) mmol/L Potassium (3.3-5.1) mmol/L Chloride (96-108) mmol/L Carbon Dioxide (22-29) mmol/L Anion Gap (12-20) BUN (9-16) mg/dL Creatinine (0.5-1.4) mg/dL Estim Creat Clear Calc Estimated GFR POC Glucose (60-115) mg/dL Random Glucose (60-115) mg/dL Lactic Acid (0.5-2.0) mmol/L Calcium (8.4-10.2) mg/dL Magnesium (1.6-2.6) mg/dL Total Bilirubin (0.0-1.0) mg/dL Direct Bilirubin (0.0-0.5) mg/dL AST (5-31) U/L ALT (0-31) U/L Alkaline Phosphatase (39-117) U/L Ammonia (13-55) umol/L Troponin I High Sens B-Natriuretic Peptide (<100) pg/mL Total Protein (6.5-8.0) g/dL Albumin (3.5-5.0) g/dL Procalcitonin ng/mL TSH (0.32-4.0) uIU/mL Free T4 (0.71-1.85) ng/dL Urine Color YELLOW Urine Appearance HAZY Urine pH 6.5 (5.0-8.0) Ur Specific [place] 1.015 (1.005-1.025) Urine Protein TRACE (NEG-TRACE) MG/DL Urine Glucose (UA) NEG (NEG) MG/DL Urine Ketones NEG (NEG) MG/DL Urine Blood NEG (NEG) Urine Nitrite NEG (NEG) Ur Leukocyte Esterase NEG (NEG) Urine Opiates Screen Not Detected (Not Detect) Urine Fentanyl Screen Not Detected (Not Detect) Ur Barbiturates Screen Not Detected (Not Detect) Ur Phencyclidine Scrn Not Detected (Not Detect) Ur Amphetamines Screen Not Detected (Not Detect) U Benzodiazepines Scrn Not Detected (Not Detect) Urine Cocaine Screen Not Detected (Not Detect) U Marijuana (THC) Screen Not Detected (Not Detect) COVID-19 (RADHA) (Negative) COVID-19 Clin Com Influenza Type A (PAMELA) Negative (Negative) Influenza Type B (PAMELA) Negative (Negative) Influenza A & B Note See Note 10/23/21 Range/Units 10:51 WBC (4.8-10.8) X10*3/uL RBC (4.20-5.50) X10*6/uL Hgb (12.0-16.0) g/dl Hct (37.0-47.0) % MCV (80.0-98.0) fL MCH (27.0-33.0) pg MCHC (31.0-35.0) g/dl RDW (11.0-16.0) % Plt Count (160-400) X10*3/uL MPV (9.4-12.3) fL Immature Gran % (Auto) (0.0-0.4) % Neut % (Auto) (45-73) % Lymph % (Auto) (20-40) % [place] % (Auto) (2-11) % Eos % (Auto) (0-4) % Baso % (Auto) (0-2) % Lymph # (Auto) (1.2-4.9) X10*3/uL [place] # (Auto) (0.1-1.2) X10*3/uL Eos # (Auto) (0.0-0.4) X10*3/uL Baso # (Auto) (0.0-0.2) X10*3/uL Abs Immat Gran (auto) (0.00-0.03) X10*3/uL Absolute Neuts (auto) (2.0-8.3) x10*3/uL Absolute Nucleated RBC (0.0-0.012) X10*3/uL Nucleated RBC % (auto) (0.0-0.2) /100WBC PT (9.9-13.0) SEC INR (0.9-1.1) APTT (24.1-38.0) SEC O2 Saturation 99.0 % ABG pH at Pt Temp 7.46 H (7.35-7.45) ABG pCO2 at Pt Temp 35 (32-45) mmHg ABG pO2 at Pt Temp 209 H (83-108) mmHg ABG HCO3 26 (22-26) mmol/L ABG Base Excess (Actual) 2.6 mmol/L VBG pH (7.32-7.43) VBG pCO2 mmHg VBG pO2 mmHg VBG HCO3 (22-26) mmol/L VBG O2 Saturation % VBG Base Excess mmol/L Sodium (135-145) mmol/L Potassium (3.3-5.1) mmol/L Chloride (96-108) mmol/L Carbon Dioxide (22-29) mmol/L Anion Gap (12-20) BUN (9-16) mg/dL Creatinine (0.5-1.4) mg/dL Estim Creat Clear Calc Estimated GFR POC Glucose (60-115) mg/dL Random Glucose (60-115) mg/dL Lactic Acid (0.5-2.0) mmol/L Calcium (8.4-10.2) mg/dL Magnesium (1.6-2.6) mg/dL Total Bilirubin (0.0-1.0) mg/dL Direct Bilirubin (0.0-0.5) mg/dL AST (5-31) U/L ALT (0-31) U/L Alkaline Phosphatase (39-117) U/L Ammonia (13-55) umol/L Troponin I High Sens B-Natriuretic Peptide (<100) pg/mL Total Protein (6.5-8.0) g/dL Albumin (3.5-5.0) g/dL Procalcitonin ng/mL TSH (0.32-4.0) uIU/mL Free T4 (0.71-1.85) ng/dL Urine Color Urine Appearance Urine pH (5.0-8.0) Ur Specific [place] (1.005-1.025) Urine Protein (NEG-TRACE) MG/DL Urine Glucose (UA) (NEG) MG/DL Urine Ketones (NEG) MG/DL Urine Blood (NEG) Urine Nitrite (NEG) Ur Leukocyte Esterase (NEG) Urine Opiates Screen (Not Detect) Urine Fentanyl Screen (Not Detect) Ur Barbiturates Screen (Not Detect) Ur Phencyclidine Scrn (Not Detect) Ur Amphetamines Screen (Not Detect) U Benzodiazepines Scrn (Not Detect) Urine Cocaine Screen (Not Detect) U Marijuana (THC) Screen (Not Detect) COVID-19 (RADHA) (Negative) COVID-19 Clin Com Influenza Type A (PAMELA) (Negative) Influenza Type B (PAMELA) (Negative) Influenza A & B Note ECG Data ECG #1: Attestation: I personally reviewed and interpreted this ECG as follows: ECG interpretation date: 10/23/21 ECG interpretation time: 12:43 Prior ECG tracings: available for review Interpretation: Atrial fibrillation, heart rate 75 beats per minute, normal QTC, no ST segment elevations or depressions. Procedures Intubation Time out performed: Yes sedative: Etomidate Mg Given: 20 Assist Device Used: fiber optic device ET Tube Size: 8 ET Tube Uncuffed: No Critical Care Time Critical Care Time Critical Care Time: Yes Total Critical Care Time: 45 Attestation: I have personally provided critical care time exclusive of time spent on separately billable procedures. Time includes review of lab data, radiology results, discussion with consultants, and monitoring for potential decompensation. Intervention performed as documented. Discharge Plan Discharge Clinical Impression: Acute respiratory failure with hypoxia, Acute metabolic encephalopathy, Aspiration into airway Patient Disposition: Admitted As Inpatient
--- NOTE | 2021-10-23 09:30 | PC.NURSE ---
iv heplocvk # 20 r hand, t place on nrb mask
[2021-10-23 09:32] LABS: Glucose, Whole Blood 104 mg/dL (60-115)
--- NOTE | 2021-10-23 09:43 | PC.NURSE ---
0940 - plan to intubate by rep therapist at bedside 0948 - zofran 4mg ivp x 1 0951 - etomidate 20mg ivp x 1 0955 - 173/579-80-77-98%, co2-33, et tube 8.0, # 23 at the r lip +end tidal/color formation 0957 - vent ssettings - 15-100% peep 5, 50ml of yellow fluids from suction
[2021-10-23 09:54] LABS: MANUAL DIFF FLAG NO
[2021-10-23 09:56] LABS: Venous Blood Gas Refer to POC result
[2021-10-23 09:57] LABS: VBG Base Excess 0.4 mmol/L; VBG HCO3 23 mmol/L (22-26); VBG pCO2 32 mmHg; VBG pH 7.45 (7.32-7.43); VBG pO2 138 mmHg
[2021-10-23 09:58] LABS: Basophils Absolute Auto 0.1 X10*3/uL (0.0-0.2); Basophils Percent Auto 0.5 % (0-2); Eosinophils Absolute Auto 0.1 X10*3/uL (0.0-0.4); Eosinophils Percent Auto 1.1 % (0-4); Hematocrit 50.8 % (37.0-47.0); Hemoglobin 16.1 g/dl (12.0-16.0); Imm Gran Abs Auto 0.06 X10*3/uL (0.00-0.03); Imm Gran Pct Auto 0.6 % (0.0-0.4); Lymphocytes Absolute Auto 1.6 X10*3/uL (1.2-4.9); Lymphocytes Percent Auto 16.1 % (20-40); Mean Corpuscular HGB Conc 31.7 g/dl (31.0-35.0); Mean Corpuscular Hemoglobin 27.9 pg (27.0-33.0); Mean Corpuscular Volume 87.9 fL (80.0-98.0); Mean Platelet Volume 9.9 fL (9.4-12.3); Monocytes Absolute Auto 0.7 X10*3/uL (0.1-1.2); Monocytes Percent Auto 6.8 % (2-11); Neutrophils Absolute Auto 7.6 x10*3/uL (2.0-8.3); Neutrophils Percent Auto 74.9 % (45-73); Platelet Count 267 X10*3/uL (160-400); Red Blood Count 5.78 X10*6/uL (4.20-5.50); Red Cell Distribution Width 15.6 % (11.0-16.0); White Blood Count 10.1 X10*3/uL (4.8-10.8)
[2021-10-23] MEDS: ondansetron HCL 4 MG/2 ML VIAL IVPUSH (10:01)
[2021-10-23] MEDS: Etomidate 20 MG/10 ML VIAL IVPUSH (10:01)
[2021-10-23 10:05] LABS: INTERNATIONAL NORM RATIO 1.2 (0.9-1.1); Prothrombin Time 13.1 SEC (9.9-13.0)
[2021-10-23] MEDS: propofoL 1,000 MG/100 ML VIAL 23.76 MG IVCONT (10:05)
[2021-10-23 10:06] LABS: Lactic Acid 1.9 mmol/L (0.5-2.0)
--- NOTE | 2021-10-23 10:06 | PC.NURSE ---
et tube advanced to #24 at the r li by resp therapist. propofol 30mcg/kg/min initated, bedside cxr done
[2021-10-23 10:08] LABS: Partial Thromboplastin Time 44.4 SEC (24.1-38.0)
[2021-10-23 10:11] LABS: Alanine Aminotransferase 16 U/L (0-31); Albumin Level 3.8 g/dL (3.5-5.0); Alkaline Phosphatase 80 U/L (39-117); Anion Gap 15 (12-20); Aspartate Amino Transferase 13 U/L (5-31); Bilirubin Direct 0.8 mg/dL (0.0-0.5); Bilirubin Total 1.7 mg/dL (0.0-1.0); Blood Urea Nitrogen 13 mg/dL (9-16); Calcium 9.6 mg/dL (8.4-10.2); Carbon Dioxide 24 mmol/L (22-29); Chloride 105 mmol/L (96-108); Creatinine Clr Calc Pharmacy 96.7; Estimated Glomerular Filt Rate > 60; Glucose Random 100 mg/dL (60-115); Magnesium 2.4 mg/dL (1.6-2.6); Sodium 139 mmol/L (135-145); Total Protein 7.6 g/dL (6.5-8.0)
[2021-10-23] MEDS: Piperacillin Sodium/Tazobactam 4.5 GM in 0.9 % Sodium Chloride 100 ML IV (10:21)
--- NOTE | 2021-10-23 10:23 | PC.NURSE ---
Patient cleaned of incontinent stool, bed linen changed, urinary catheter placed with temperature sensor.
--- NOTE | 2021-10-23 10:29 | PC.NURSE ---
Vent settings- 15-80% Peep 5.
[2021-10-23 10:56] LABS: COVID-19 Test Negative (Negative); IDNOW Serial# 16C4AD1C; Influenza A Negative (Negative); Influenza B2 Negative (Negative)
[2021-10-23 11:00] LABS: ABG Refer to POC result
[2021-10-23 11:01] LABS: Appearance Urine HAZY; Color Urine YELLOW; Glucose Urine UA NEG (NEG); Leukocyte Esterase Urine NEG (NEG); Nitrite Urine NEG (NEG); PH 6.5 (5.0-8.0); Specific Gravity - Urine 1.015 (1.005-1.025); Urine Blood NEG (NEG); Urine Ketones NEG (NEG); Urine Protein TRACE MG/DL (NEG-TRACE)
[2021-10-23 11:01] LABS: B Type Natriuretic Peptide 180 pg/mL (<100)
--- NOTE | 2021-10-23 11:01 | PC.NURSE ---
Patient blood pressure trending down- 107/62- per Carleen, titrate Propofol to 25mcg/kg/min
--- NOTE | 2021-10-23 11:02 | PHA.MEDREC ---
Pharmacy Consult ? Medication Reconciliation Pharmacy has completed the medication reconciliation. Patient came from [facility] with a medication list. Tracey Phillips, [place]
[2021-10-23 11:03] LABS: Procalcitonin 0.05 ng/mL
[2021-10-23 11:05] LABS: Amphetamine Screen Urine Not Detected (Not Detect); Barbiturates, Urine Not Detected (Not Detect); Benzodiazepines Screen Urine Not Detected (Not Detect); Cannabinoid Screen Urine Not Detected (Not Detect); Cocaine Screen Urine Not Detected (Not Detect); Fentanyl, urine Not Detected (Not Detect); Opiate Screen Urine Not Detected (Not Detect); Phencyclidine Screen Urine Not Detected (Not Detect)
[2021-10-23 11:09] LABS: Ammonia 33 umol/L (13-55)
[2021-10-23 11:15] LABS: TSH reflex Free T4 0.29 uIU/mL (0.32-4.0)
[2021-10-23 11:20] LABS: ABG Base Excess 2.6 mmol/L; ABG HCO3 26 mmol/L (22-26); ABG pCO2 35 mmHg (32-45); ABG pH 7.46 (7.35-7.45); ABG pO2 209 mmHg (83-108)
[2021-10-23 11:39] LABS: Troponin-I High Sensitivity 4.6 ng/L (<3.5-17.0)
--- NOTE | 2021-10-23 12:17 | PC.NURSE ---
Patient remains intubated and sedated with Propofol at 25 mcg/kg/min. Vent settings 12- 80%- Peep 5. Vancomycin is currently infusing.
[2021-10-23 12:21] LABS: Free T4 (Free Thyroxine) 1.93 ng/dL (0.71-1.85)
[2021-10-23] MEDS: 0.9 % Sodium Chloride 500 ML IV (12:39)
[2021-10-23] MEDS: fentaNYL citrate/PF 100 MCG/2 ML VIAL 50 MCG IVPUSH (13:35)
--- NOTE | 2021-10-23 14:12 | PC.NURSE ---
Patient continued to be hypotensive with blood pressures trending down, titrated propofol and paused. Per Carleen Guy to insert central line and begin norepinephrine. Gave dose of fentanyl prior to procedure. minimal response from patient for central line placement. Remains on vent settings 12- 80% and peep of 5. O2 sat 95-96%. Propofol running at 10mcg/kg/min, began norepinephrine at 0.05mcg/kg/min per protocol. Awaiting ICU bed to be ready. Will continue to monitor.
--- NOTE | 2021-10-23 14:35 | PC.NURSE ---
Report given to Anibal SEAMAN. Patient transferred to icu.
[2021-10-23] MEDS: fentaNYL citrate/PF 100 MCG/2 ML VIAL IVPUSH (15:14)
--- NOTE | 2021-10-23 15:14 | MHC.CM.PN ---
Pt admitted to ICU with respiratory failure and on ventilatory support. She is a intermediate manager care resident of [facility] where she will return when medically stable. HCP and MOLST on file and verified with spouse Aba. Pt will return via BLS. IMM on file. CM to follow for finalization of d/c plans
[2021-10-23] MEDS: propofoL 1,000 MG/100 ML VIAL 15.84 MG IVCONT ×2 (15:15→20:25)
[2021-10-23] MEDS: propofoL 200 MG/20 ML VIAL 40 MG IVPUSH (15:15)
[2021-10-23] MEDS: levETIRAcetam in NaCl (iso-os) 1,000 MG/100 ML PIGGYBACK 400 MG IV (18:12)
--- NOTE | 2021-10-23 19:07 | PC.NURSE ---
Received from OR intubated on levo and propfol; titrated as needed. Extremities are markedly mottled and edematous; feet and heels are cyanotic; pulses found via doppler only. Vital signs remain stable. Patient unresponsive except to noxious stimuli, posturing noted. Given initial dose of keppra. Vent settings: FiO2 .30, AC/VC, rate 12, TV 410, peep 5. Tolerating well with propofol infusion. OGT placed and connectied to IWS. Grace draining emperatriz urine. Safety maintained.
--- NOTE | 2021-10-23 19:22 | P.HPCC_ITS ---
History of Present Illness Date of Service: 10/23/21 Attending physician on admission: Pavel Lock Chief Complaint: AMS, unresponsiveness Mrs. Salas was admitted to the ICU this afternoon with altered mental status and acute respiratory failure. The patient is a 72-year-old female with PMHx of vascular dementia, atrial fibrillation on Xarleto, HTN, HFpEF, PVD.? Recent admission to [facility] last month for a 14cm rectus sheath hematoma, pneumonia, and UTI.? Discharged 10/15.? Her baseline MS is awake, alert, conversant but confused.? Never been intubated before. The patient was BIBA this morning from [facility] altered mental status. ?Was reportedly found unresponsive at 8:30am.? On EMS arrival, the patient was gurgling and was suctioned for thick green mucus.? There was question of possible seizure like activity with some arm twitching but no witnessed tonic clonic movements and no history of seizures. She vomited en route.? She was placed on supplemental oxygen and brought to the ED. In the ED, MS was altered, winced to sternal rub.? Unresponsive and gurgling.? Pinpoint pupils.? Sat 80% on room air with copious amounts of thin yellow oral secretions. ?Respiratory pattern intermittently labored, rhonchorous.? Unable to protect her airway.? She was intubated.? CXR showed some mild vascular conges tion, with enlarged cardiac silhouette.? No focal infiltrates.? Head CT showed atrophy with ventricular enlargement. She was afebrile.? WBC 10, Hb 16 (baseline 13), BUN/creat 13/0.7, alb 3.8, lactic acid was normal, procalcitonin was low.? Normal trop, unremarkable EKG.? U/A negative.? She was started on propofol.? She was given empiric vanco and Zosyn.? She became hypotensive and was therefore gi shanon a 500 cc bolus and started on Levophed.? She was admitted to the ICU. In the ICU she was decorticate posturing on arrival.? Relaxed after bolus of propofol and fentanyl.? Currently on propofol 20ug, Levophed 0.07ug.? HR 92, BP 108/52.? On AC 12/410/30%/+5, RR is 17, Ve 7L, PIP 18cm, ETCO2 26mm, Sat 96%.? Afebrile.? Pupils unequal and unreactive.? Right side about 4 mm, left side about 2.5 mm.? No JVD with the head of bed at 30 degrees.? Chest clear to auscultation, with normal expiratory phase.? Heart rate and rhythm are irregular, with normal-sounding S1 and S2, with no murmur or gallops.? The abdomen is obese and benign.? She has about 2+ peripheral and central edema. My bedside ECHOCARDIOGRAM for hemodynamic monitoring:? Image quality:? Fair.? Findings: 1. Unable to assess LV wall thickness 2. LV cavity size is normal. The LV was visualized best from the parasternal long-axis view.? LV function looks normal.? EF probably 50-60%.? No gross RWMAs noted. 3. A very poor view of the RV suggested RV enlargement. 4. Unable to adequately visualize or Doppler any valves. 5. IVC measured 2.3 cm with minimal inspiratory collapse. IMPRESSION: 1. Underlying vascular dementia.? Baseline MS is awake, alert, conversant but confused 2. Underlying atrial fibrillation 3. Underlying HFpEF. 4. New altered MS, unresponsiveness.? Cannot r/o seizure activity.? D/W Dr. Logan.? With her age and with her abnormal brain, this could be partial complex seizure activity.? He recommends loading with Keppra, and she?ll stay on Keppra the rest of her life, unless another cause is found.? EEG tomorrow morning with the propofol off.? (We don?t do prolactin levels here, so I won?t send one.) 5. Acute respiratory failure.? 2? above.? It?s possible that her initial CXR shows some pulmon edema, but the second CXR, done 4 hrs later after the CVL, is clear.? So if the first chest x-ray indeed showed pulmonary edema, it was probably negative pressure pulmonary edema.? Her current A-a gradient is almost normal. 6. Hypotension (requirement for Levophed).? Not sure what the cause is, but I don?t see evidence for sepsis.? Her volume status is adequate. 7. Not septic.? No antibiotics. Critical care time:? 110 min. [facility] Past Medical History Medical History (Updated 10/23/21 @ 11:10 by LUIZ Mcclelland) Anxiety Chronic CHF Depression Hemoglobinemia HTN (hypertension) Osteoarthritis Overactive bladder Persistent atrial fibrillation Polycythemia Vascular dementia of acute onset without behavioral disturbance Social History Social History Household Members: Unknown / Unable to assess Housing: Custodial Unable to assess alcohol history related to: Unable to respond Alcohol intake: unknown Patient Tobacco Use Status: Never used Tobacco Use of substances other than those prescribed or required for medical reasons: Unable to respond Advance Directives: Yes Advance Directives on File: Yes Advance Directives Date on File: 10/16/21 service: No Current occupational status: retired Meds Allergies Allergy/AdvReac Type Severity Reaction Status Date / Time No Known Allergies Allergy Unverified 02/09/20 15:39 [No Known Allergies*] Active Medications: Current Medications Propofol (Diprivan) 1,000 mg in 100 mls @ 0 mls/hr IVCONT .Q0M [facility]; Protocol Last Admin: 10/23/21 15:15 Dose: 20 mcg/kg/min, 15.84 mls/hr Documented by: Norepinephrine Bitartrate (Levophed) 8 mg in 250 mls @ 0 mls/hr IVCONT .Q0M NAVEEN; Protocol Last Titration: 10/23/21 18:47 Dose: 0.07 mcg/kg/min, 17.33 mls/hr Documented by: Levetiracetam (Levetiracetam 500 Mg Tablet) 500 mg PO ONCE@2100 NAVEEN Levetiracetam (Levetiracetam 250 Mg Tablet) 750 mg PO Q12H [facility] Pharmacy Consult (Consult Rx Perform Med Rec) 1 each MISCELLANE ONCE PRN PRN Reason: Consult order Pharmacy Consult (Consult Rx Vancomycin Dosing) 1 each MISCELLANE DAILY PRN PRN Reason: Consult order Home Medications Medication Instructions Recorded Confirmed Last Taken Type amiodarone 100 mg tablet 1 tab PO DAILY 03/20/21 10/23/21 10/22/21 History buspirone 7.5 mg tablet 1 tab PO BID 03/20/21 10/23/21 10/22/21 History donepezil 10 mg tablet 1 tab PO BEDTIME 03/20/21 10/23/21 10/22/21 History memantine 10 mg tablet 1 tab PO BID 03/20/21 10/23/21 10/22/21 History albuterol sulfate 90 mcg/actuation 2 puff INHALATION Q4H PRN 10/11/21 10/23/21 10/11/21 History aerosol inhaler ammonium lactate 12 % lotion 1 appl TOPICAL BID PRN 10/11/21 10/23/21 Unknown History bisacodyl 10 mg rectal suppository 10 mg VT DAILY PRN 10/11/21 10/23/21 Unknown History cholecalciferol (vitamin D3) 125 125 mcg PO MO@1000 10/11/21 10/23/21 10/21/21 History mcg (5,000 unit) tablet (Vitamin D3) furosemide 40 mg tablet 40 mg PO DAILY 10/23/21 10/23/21 10/22/21 History lisinopril 5 mg tablet 5 mg PO DAILY 10/23/21 10/23/21 10/22/21 History magnesium hydroxide 400 mg/5 mL 30 ml PO DAILY PRN 10/23/21 10/23/21 10/19/21 History oral suspension (Milk of Magnesia) Physical Exam Vital Signs: Vital Signs: Last Vital Signs Temp 100.2 F 10/23/21 18:00 Pulse 92 10/23/21 18:00 Resp 10 L 10/23/21 18:00 BP 112/54 L 10/23/21 18:00 Pulse Ox 95 10/23/21 18:00 BMI result Body Mass Index 41.7 Results Labs CBC and Chem 7: 10/23/21 09:46 10/23/21 09:45 Labs: Laboratory Results - last 24 hr 10/23/21 10/23/21 10/23/21 09:28 09:43 09:43 MCV MCH MCHC RDW Plt Count MPV Immature Gran % (Auto) Neut % (Auto) Lymph % (Auto) [place] % (Auto) Eos % (Auto) Baso % (Auto) Lymph # (Auto) [place] # (Auto) Eos # (Auto) Baso # (Auto) Abs Immat Gran (auto) Absolute Neuts (auto) Absolute Nucleated RBC Nucleated RBC % (auto) PT INR APTT O2 Saturation ABG pH at Pt Temp ABG pCO2 at Pt Temp ABG pO2 at Pt Temp ABG HCO3 ABG Base Excess (Actual) VBG pH 7.45 H VBG pCO2 32 VBG pO2 138 VBG HCO3 23 VBG O2 Saturation 99.0 VBG Base Excess 0.4 Anion Gap Estim Creat Clear Calc Estimated GFR POC Glucose 104 Random Glucose Lactic Acid 1.9 Calcium Magnesium Total Bilirubin Direct Bilirubin AST ALT Alkaline Phosphatase Ammonia Troponin I High Sens B-Natriuretic Peptide Total Protein Albumin Procalcitonin TSH Free T4 Urine Color Urine Appearance Urine pH Ur Specific [place] Urine Protein Urine Glucose (UA) Urine Ketones Urine Blood Urine Nitrite Ur Leukocyte Esterase Urine Opiates Screen Urine Fentanyl Screen Ur Barbiturates Screen Ur Phencyclidine Scrn Ur Amphetamines Screen U Benzodiazepines Scrn Urine Cocaine Screen U Marijuana (THC) Screen COVID-19 (RADHA) COVID-19 Clin Com Influenza Type A (PAMELA) Influenza Type B (PAMELA) Influenza A & B Note 10/23/21 10/23/21 10/23/21 09:45 09:45 09:46 MCV 87.9 MCH 27.9 MCHC 31.7 RDW 15.6 Plt Count 267 MPV 9.9 Immature Gran % (Auto) 0.6 H Neut % (Auto) 74.9 H Lymph % (Auto) 16.1 L [place] % (Auto) 6.8 Eos % (Auto) 1.1 Baso % (Auto) 0.5 Lymph # (Auto) 1.6 [place] # (Auto) 0.7 Eos # (Auto) 0.1 Baso # (Auto) 0.1 Abs Immat Gran (auto) 0.06 H Absolute Neuts (auto) 7.6 Absolute Nucleated RBC 0.000 Nucleated RBC % (auto) 0.0 PT INR APTT O2 Saturation ABG pH at Pt Temp ABG pCO2 at Pt Temp ABG pO2 at Pt Temp ABG HCO3 ABG Base Excess (Actual) VBG pH VBG pCO2 VBG pO2 VBG HCO3 VBG O2 Saturation VBG Base Excess Anion Gap 15 Estim Creat Clear Calc 96.7 Estimated GFR > 60 POC Glucose Random Glucose 100 Lactic Acid Calcium 9.6 D Magnesium 2.4 Total Bilirubin 1.7 H Direct Bilirubin 0.8 H AST 13 ALT 16 Alkaline Phosphatase 80 D Ammonia Troponin I High Sens B-Natriuretic Peptide Total Protein 7.6 D Albumin 3.8 D Procalcitonin 0.05 TSH Free T4 Urine Color Urine Appearance Urine pH Ur Specific [place] Urine Protein Urine Glucose (UA) Urine Ketones Urine Blood Urine Nitrite Ur Leukocyte Esterase Urine Opiates Screen Urine Fentanyl Screen Ur Barbiturates Screen Ur Phencyclidine Scrn Ur Amphetamines Screen U Benzodiazepines Scrn Urine Cocaine Screen U Marijuana (THC) Screen COVID-19 (RADHA) COVID-19 Clin Com Influenza Type A (PAMELA) Influenza Type B (PAMELA) Influenza A & B Note 10/23/21 10/23/21 10/23/21 09:47 09:47 10:26 MCV MCH MCHC RDW Plt Count MPV Immature Gran % (Auto) Neut % (Auto) Lymph % (Auto) [place] % (Auto) Eos % (Auto) Baso % (Auto) Lymph # (Auto) [place] # (Auto) Eos # (Auto) Baso # (Auto) Abs Immat Gran (auto) Absolute Neuts (auto) Absolute Nucleated RBC Nucleated RBC % (auto) PT 13.1 H INR 1.2 H APTT 44.4 H O2 Saturation ABG pH at Pt Temp ABG pCO2 at Pt Temp ABG pO2 at Pt Temp ABG HCO3 ABG Base Excess (Actual) VBG pH VBG pCO2 VBG pO2 VBG HCO3 VBG O2 Saturation VBG Base Excess Anion Gap Estim Creat Clear Calc Estimated GFR POC Glucose Random Glucose Lactic Acid Calcium Magnesium Total Bilirubin Direct Bilirubin AST ALT Alkaline Phosphatase Ammonia 33 Troponin I High Sens Cancelled B-Natriuretic Peptide Total Protein Albumin Procalcitonin TSH Free T4 Urine Color Urine Appearance Urine pH Ur Specific [place] Urine Protein Urine Glucose (UA) Urine Ketones Urine Blood Urine Nitrite Ur Leukocyte Esterase Urine Opiates Screen Urine Fentanyl Screen Ur Barbiturates Screen Ur Phencyclidine Scrn Ur Amphetamines Screen U Benzodiazepines Scrn Urine Cocaine Screen U Marijuana (THC) Screen COVID-19 (RADHA) COVID-19 Clin Com Influenza Type A (PAMELA) Influenza Type B (PAMELA) Influenza A & B Note 10/23/21 10/23/21 10/23/21 10:26 10:27 10:30 MCV MCH MCHC RDW Plt Count MPV Immature Gran % (Auto) Neut % (Auto) Lymph % (Auto) [place] % (Auto) Eos % (Auto) Baso % (Auto) Lymph # (Auto) [place] # (Auto) Eos # (Auto) Baso # (Auto) Abs Immat Gran (auto) Absolute Neuts (auto) Absolute Nucleated RBC Nucleated RBC % (auto) PT INR APTT O2 Saturation ABG pH at Pt Temp ABG pCO2 at Pt Temp ABG pO2 at Pt Temp ABG HCO3 ABG Base Excess (Actual) VBG pH VBG pCO2 VBG pO2 VBG HCO3 VBG O2 Saturation VBG Base Excess Anion Gap Estim Creat Clear Calc Estimated GFR POC Glucose Random Glucose Lactic Acid Calcium Magnesium Total Bilirubin Direct Bilirubin AST ALT Alkaline Phosphatase Ammonia Troponin I High Sens 4.6 B-Natriuretic Peptide 180 H Total Protein Albumin Procalcitonin TSH 0.29 L Free T4 1.93 H Urine Color Urine Appearance Urine pH Ur Specific [place] Urine Protein Urine Glucose (UA) Urine Ketones Urine Blood Urine Nitrite Ur Leukocyte Esterase Urine Opiates Screen Urine Fentanyl Screen Ur Barbiturates Screen Ur Phencyclidine Scrn Ur Amphetamines Screen U Benzodiazepines Scrn Urine Cocaine Screen U Marijuana (THC) Screen COVID-19 (RADHA) Negative COVID-19 Clin Com See Note Influenza Type A (PAMELA) Influenza Type B (PAMELA) Influenza A & B Note 10/23/21 10/23/21 10/23/21 10:30 10:47 10:47 MCV MCH MCHC RDW Plt Count MPV Immature Gran % (Auto) Neut % (Auto) Lymph % (Auto) [place] % (Auto) Eos % (Auto) Baso % (Auto) Lymph # (Auto) [place] # (Auto) Eos # (Auto) Baso # (Auto) Abs Immat Gran (auto) Absolute Neuts (auto) Absolute Nucleated RBC Nucleated RBC % (auto) PT INR APTT O2 Saturation ABG pH at Pt Temp ABG pCO2 at Pt Temp ABG pO2 at Pt Temp ABG HCO3 ABG Base Excess (Actual) VBG pH VBG pCO2 VBG pO2 VBG HCO3 VBG O2 Saturation VBG Base Excess Anion Gap Estim Creat Clear Calc Estimated GFR POC Glucose Random Glucose Lactic Acid Calcium Magnesium Total Bilirubin Direct Bilirubin AST ALT Alkaline Phosphatase Ammonia Troponin I High Sens B-Natriuretic Peptide Total Protein Albumin Procalcitonin TSH Free T4 Urine Color YELLOW Urine Appearance HAZY Urine pH 6.5 Ur Specific [place] 1.015 Urine Protein TRACE Urine Glucose (UA) NEG Urine Ketones NEG Urine Blood NEG Urine Nitrite NEG Ur Leukocyte Esterase NEG Urine Opiates Screen Not Detected Urine Fentanyl Screen Not Detected Ur Barbiturates Screen Not Detected Ur Phencyclidine Scrn Not Detected Ur Amphetamines Screen Not Detected U Benzodiazepines Scrn Not Detected Urine Cocaine Screen Not Detected U Marijuana (THC) Screen Not Detected COVID-19 (RADHA) COVID-19 Clin Com Influenza Type A (PAMELA) Negative Influenza Type B (PAMELA) Negative Influenza A & B Note See Note 10/23/21 10:51 MCV MCH MCHC RDW Plt Count MPV Immature Gran % (Auto) Neut % (Auto) Lymph % (Auto) [place] % (Auto) Eos % (Auto) Baso % (Auto) Lymph # (Auto) [place] # (Auto) Eos # (Auto) Baso # (Auto) Abs Immat Gran (auto) Absolute Neuts (auto) Absolute Nucleated RBC Nucleated RBC % (auto) PT INR APTT O2 Saturation 99.0 ABG pH at Pt Temp 7.46 H ABG pCO2 at Pt Temp 35 ABG pO2 at Pt Temp 209 H ABG HCO3 26 ABG Base Excess (Actual) 2.6 VBG pH VBG pCO2 VBG pO2 VBG HCO3 VBG O2 Saturation VBG Base Excess Anion Gap Estim Creat Clear Calc Estimated GFR POC Glucose Random Glucose Lactic Acid Calcium Magnesium Total Bilirubin Direct Bilirubin AST ALT Alkaline Phosphatase Ammonia Troponin I High Sens B-Natriuretic Peptide Total Protein Albumin Procalcitonin TSH Free T4 Urine Color Urine Appearance Urine pH Ur Specific [place] Urine Protein Urine Glucose (UA) Urine Ketones Urine Blood Urine Nitrite Ur Leukocyte Esterase Urine Opiates Screen Urine Fentanyl Screen Ur Barbiturates Screen Ur Phencyclidine Scrn Ur Amphetamines Screen U Benzodiazepines Scrn Urine Cocaine Screen U Marijuana (THC) Screen COVID-19 (RADHA) COVID-19 Clin Com Influenza Type A (PAMELA) Influenza Type B (PAMELA) Influenza A & B Note Imaging Radiologist's Impressions: Impressions Chest X-Ray 10/23/21 10:07 IMPRESSION: ET tube in position. Some compression of parenchymal markings as noted above, but mild increased prominence of pulmonary vasculature can be seen with underlying mild vascular congestion. Head CT 10/23/21 10:28 IMPRESSION: No evidence for bleed or mass effect. Atrophy with change of chronic small vessel ischemic disease of white matter. The ventricles are again noted to be distended, slightly out of proportion to the degree of sulcal prominence. Underlying normal pressure hydrocephalus is a consideration. Chest X-Ray 10/23/21 14:05 IMPRESSION: 1. Left IJ catheter tip in superior vena cava about 2 cm proximal to the caval atrial junction. 2. Endotracheal tube tip about 5 cm proximal to the nimisha. 3. No pneumothorax. Critical Care Time Critical Care Time (minutes): 120
[2021-10-23] MEDS: levETIRAcetam 500 MG TABLET PO (20:33)
[2021-10-23] MEDS: Acetaminophen Oral Liquid 650 MG/20.3 ML SOLUTION PO (22:05)
[2021-10-24] VITALS (29 sets, daily range): BP systolic 93–138; BP diastolic 51–75; PULSE 77–97; RESP 7–17; TEMP 34.5–38.8; O2SAT 91–100; BMI 42.3
--- NOTE | 2021-10-24 | EEG_ITS ---
This is a 16-channel portable EEG performed in ICU. The patient is intubated and unresponsive. Sedation has been stopped for this EEG. Background EEG rhythm was low to medium amplitude, mixed theta, beta with no obvious asymmetry or paroxysmal tendency. No sharp wave spikes or asymmetry noted. IMPRESSION: Mild generalized slowing with no epileptic discharges. MD CHELSEA Robison/GUEVARA / [id number]
[2021-10-24] MEDS: propofoL 1,000 MG/100 ML VIAL 11.88 MG IVCONT (01:14)
--- NOTE | 2021-10-24 04:29 | PC.NURSE ---
CARE ASSUMED 23:15..REMAINS TUBED/VENTED AC/VCV MODE....UNRESPONSIVE...PUPILS 3-4MM AND REMAIN NON-REACTIVE...EXTREMETIES FLACCID...(+) WEAK GAG/COUGH REFLEXES...OCCASIONALLY BRIEFLY ASSISTS VENTILATOR...OG-TUBE CLAMPED...BOWDEN 20-22 CC/HR IRASEMA URINE..MILD (+) JVD...ICU PA AWARE..NO TREATMENT OF OUTPUT OVERNIGHT..TO REVIEW AM LABS AND REASSESS....CHRONIC ATRIAL FIB WITH CONTROLLED HR...LEVOPHED/PRPOFOL TITRATED DOWNWARD PER MAR
[2021-10-24 05:45] LABS: VBG Base Excess -1.4 mmol/L; VBG HCO3 24 mmol/L (22-26); VBG pCO2 45 mmHg; VBG pH 7.33 (7.32-7.43); VBG pO2 45 mmHg
[2021-10-24 05:52] LABS: Hematocrit 42.5 % (37.0-47.0); Hemoglobin 13.4 g/dl (12.0-16.0); Mean Corpuscular HGB Conc 31.5 g/dl (31.0-35.0); Mean Corpuscular Hemoglobin 28.1 pg (27.0-33.0); Mean Corpuscular Volume 89.1 fL (80.0-98.0); Mean Platelet Volume 9.3 fL (9.4-12.3); Platelet Count 237 X10*3/uL (160-400); Red Blood Count 4.77 X10*6/uL (4.20-5.50); Red Cell Distribution Width 16.1 % (11.0-16.0); White Blood Count 16.3 X10*3/uL (4.8-10.8)
[2021-10-24 06:03] LABS: Lactic Acid 1.1 mmol/L (0.5-2.0)
[2021-10-24 06:13] LABS: B Type Natriuretic Peptide 317 pg/mL (<100)
[2021-10-24 06:14] LABS: Anion Gap 12 (12-20); Blood Urea Nitrogen 19 mg/dL (9-16); Calcium 8.3 mg/dL (8.4-10.2); Carbon Dioxide 24 mmol/L (22-29); Chloride 102 mmol/L (96-108); Creatinine Clr Calc Pharmacy 59.7; Estimated Glomerular Filt Rate 45; Glucose Random 97 mg/dL (60-115); Magnesium 2.1 mg/dL (1.6-2.6); Phosphorus 4.7 mg/dL (2.7-4.5); Potassium 4.7 mmol/L (3.3-5.1); Sodium 133 mmol/L (135-145)
[2021-10-24 06:36] LABS: Venous Blood Gas Refer to POC result
--- NOTE | 2021-10-24 07:00 | CA_ITS ---
Transthoracic Echocardiogram Patient (Last, First, Middle): Alicja Salas, Gender: Female Date of : 1940 Age: 80 Procedure Date: 10/24/2021 Procedure Type: Transthoracic Echocardiogram Location: ICU Height: 177.8 cm Weight: 133.36 kg BSA: 2.46 m2 Heart Rate: bpm BP: 135 / 66 mmHg Buck Presser: NATE Referring MD: Pavel Lock MD Learning Support Specialist: Avelino Bennett MD Symptoms: hypotension, resp; ? right heart failure Study Quality: Technically Difficult ECG Rhythm: Atrial Fibrillation Conclusions: - 1. Normal LV systolic function with LVEF of 65 -70% 2. At least moderately increased RV size with preserved contractility 3. Possibly significantly enlarged biatrial chamber size 4. Limited visualization of cardiac valves with normal cardiac valvular Doppler 5. RV systolic pressure cannot be accurately estimated Findings Procedure Information Contrast agent, definity, is being given per protocol without apparent complications. Left Ventricle Normal left ventricular size, thickness, and systolic function. The visually estimated ejection fraction is between 65-70%. Diastolic function is indeterminate on the basis of available data. Right Ventricle Moderately increased right ventricular cavity size. There is normal right ventricular systolic function. Atria The left atrium was not well visualized. Interatrial shunt cannot be excluded. both atrial chambers are not well visualized but appear to be significantly enlarged. The right atrium was not well visualized. Aortic Valve The aortic valve structure and function is likely normal. There is no aortic valve stenosis. There is no aortic valve regurgitation. Mitral Valve The mitral valve was not well visualized. There is no mitral valve regurgitation. There is no mitral valve stenosis. Pulmonic Valve The pulmonic valve was not well visualized. Tricuspid Valve There is mild to moderate tricuspid valve regurgitation. RV systolic pressure cannot be assessed on this study as patient is on ventilator with positive-pressure ventilation and right atrial pressures cannot be accurately estimated Great Vessels The aorta was not well visualized. The pulmonary artery was not well visualized. Venous The inferior vena cava is moderately dilated and collapses less than 50% with inspiration. Pericardium/Pleural The pericardium was not well visualized. Prior Study Comparison no previous study in the last 5 years for comparison Measurements 2D Linear Measurements IVSd: 1.14 0.6-0.9/0.6-1.0 cm LVIDd: 4.65 3.9-5.3/4.2-5.9 cm LVIDd Index: 1.89 2.4-3.2/2.2-3.1 cm/m2 LVIDs: 3.41 2.0-3.6 cm LVPWd: 0.89 0.7-1.1 cm Ao Root: 3.10 2.1-3.5 cm LA Diam: 4.10 2.7-3.8/3.0-4.0 cm LAIDs Index: 1.67 1.5-2.3 cm/m2 LV Mass: 205.85 67-162/88-224 g LV Mass Index: 83.68 43-95/49-115 g/m2 LVOT Diam: 2.10 3.0+(-)1.3 cm 2D Systolic Function EF 4C: 67.00 >55% EF 2C: 72.60 >55% EF BiP: 70.30 >55% Aortic Valve AoV Pk Earnest: 1.47 AoV Mn Earnest: 0.99 AoV VTI: 0.22 AoV Pk Grad: 9.00 Aov Mn Grad: 4.00 TRINA Cont.VTI: 2.69 LVOT LVOT Pk Earnest: 1.11 LVOT Mn Earnest: 0.78 LVOT VTI: 0.17 LVOT Pk Grad: 5.00 LVOT Mn Grad: 3.00 LVOT Diam: 2.10 LVOT Area: 3.46 Right Ventricle TAPSE (mm): 18.60 TVS' Earnest: 22.70 Tricuspid Valve TR Pk Earnest: 2.84 TR Pk Grad: 32.00 Great Vessels Aorta Ao Root-2D: 3.10 2.0-3.7 cm Sinus of Valsalva: 3.10 2.0-3.5 cm Ao Asc: 3.60 2.1-3.4 cm Pulmonary Valve PV Pk Earnest: 0.88 Peak PV Grad: 3.00 Updated in Other Vendor System with Status of Final Avelino Bennett MD electronically signed on 10/24/2021 4:43:45 PM with status of Final
--- NOTE | 2021-10-24 10:31 | MHC.STROKE ---
Addendum entered by Ibsi Erazo RN 10/29/21 12:22: I FOLLOWED UP WITH THE AND SON TODAY, I PROVIDED MY SUPPORT AND ANSWERED THEIR QUESTIONS. I DID REVIEW THE MRI SCREEN SHOT SO THEY COULD UNDERSTAND THE SEVERITY OF THE STROKE. Addendum entered by Ibis Erazo RN 10/25/21 12:08: LAST KNOWN WELL 10/22/21 AT 2200, DISCOVERED UNRESPONSIVE AT 0830. SEE ED NURSES AND PROVIDER NOTES NOTES. NPO , INTUBATED UPON ARRIVAL (FAILED SWALLOW). ANTIPLATELET AND ANTICOAGULATION CONTRAINDICATED DUE TO RECENT RECENT RECTUS SHEATH HEMATOMA (SEE PRIOR RECORDS). LDL NOT INDICATED DUE TO PATIENTS CONDITION. TODAY THE MRI CONFIRMED MULTIPLE STROKES, DR FRANCO HAS MET WITH THE FAMILY AND PROVIDED STROKE EDUCATION, HER PROGNOSIS IS POOR. DR HINTON AWARE OF MRI. Original Note: 10/23/21 EMS PRE-NOTIFIED AT 0904, NOT A STROKE ALERT, ARRIVED AT 0909 FROM [facility] ([facility] I COMMUNICATED TO THE PA THAT THE PATIENT WAS NOT ON XARELTO FOR HER AFIB, IT WAS DISCONTINUED 10/15/21. SHE DID PUT THIS IN HER NOTE. TODAY I DID CALL [facility] AND VERIFIED WITH THE NURSE THAT THE PATIENT WAS NOT ON XARELTO AND I COMMUNICATED THIS INFORMATION TO DR HINTON AND DR FRANCO. I WILL CONTINUE TO FOLLOW.
--- NOTE | 2021-10-24 11:01 | MHC.CLN ---
PT IS CURRENTLY INTUBATED AND SEDATED AWAITING EEG TODAY PER MD DISCUSSED AT ROUNDS IF TF NEEDED; RECOMMEND PROMOTE AT MAX GOAL RATE 55ML/HR WITH 240CC FREE WATER FLSUHES Q 8 HRS TO PROVIDE 1320KCALS, 82.5G PROTEIN, 1827ML TOTAL WATER FROM FORMULA AND FLUSHES START FORMULA AT 20ML/HR AND INCREASE BY 10ML Q 4 HRS UNTIL MAX GOAL IS ACHIEVED MONITOR TOLERANCE, RESIDUALS AND LYTES SEE FULL CLINICAL NUTRITION ASSESSMENT
[2021-10-24] MEDS: Chlorhexidine Gluc Oral Rinse 15 ML MOUTHWASH BUCCAL ×3 (11:34→20:15)
[2021-10-24] MEDS: levETIRAcetam Oral Soln 500 MG/5 ML 750 MG PO ×2 (11:34→20:15)
[2021-10-24] MEDS: Enoxaparin Sodium 40 MG/0.4 ML SYRINGE SUBCUT (11:34)
--- NOTE | 2021-10-24 13:39 | MHC.CM.PN ---
Pt continues care in ICU: scheduled for an EEG today to assess neurological function. Pt may be extubated following this if appropriate per MD. Pt is a LTC resident of [facility]. CM to follow
--- NOTE | 2021-10-24 13:53 | PM.NEUROCN ---
History of Present Illness Data of Consult Service Date: 10/24/21 Primary Care Provider: Yusuf Garcia MD [facility] Reason for consult: Encephalopathy 80 years old woman with underlying obesity and atrial fibrillation which at 1 point was treated with anticoagulation but it has been stopped because of last hospital admission with hematoma. She was in retirement and apparently was okay the night before. Next morning she was noted to be unresponsive and gurgling. She was brought to hospital and was noted to be unresponsive and on the way to hospital possible shaking or seizure-like movements were noted. In emergency room again she was unresponsive and was intubated and sedated. There was suspicion of seizure disorder. At this time she was intubated and has been off sedation since this morning but not responsive. Sometime decerebrate type of posturing was noted. Review of Systems Review of Systems: Not able to perform PMFSH Past Medical History Medical History (Updated 10/24/21 @ 13:58 by Yoshi Logan MD) Anxiety Chronic CHF Depression Hemoglobinemia HTN (hypertension) Osteoarthritis Overactive bladder Persistent atrial fibrillation Polycythemia Vascular dementia of acute onset without behavioral disturbance Social History Social History Household Members: Unknown / Unable to assess Housing: Custodial Unable to assess alcohol history related to: Unable to respond Alcohol intake: unknown Patient Tobacco Use Status: Never used Tobacco Use of substances other than those prescribed or required for medical reasons: Unable to respond Currently Displaying Signs/Symptoms of Drug Intoxication Withdrawal: No Advance Directives: Yes Advance Directives on File: Yes Advance Directives Date on File: 10/16/21 service: No Current occupational status: retired Meds Allergies Allergy/AdvReac Type Severity Reaction Status Date / Time No Known Allergies Allergy Unverified 02/09/20 15:39 [No Known Allergies*] Active Medications: Current Medications Acetaminophen (Acetaminophen Oral Liquid 650 Mg/20.3 Ml Solution) 650 mg PO Q6H PRN PRN Reason: Fever Last Admin: 10/23/21 22:05 Dose: 650 mg Documented by: Chlorhexidine Gluconate (Chlorhexidine Gluc Oral Rinse 15 Ml Mouthwash) 15 ml BUCCAL TID NAVEEN Last Admin: 10/24/21 11:34 Dose: 15 ml Documented by: Enoxaparin Sodium (Enoxaparin Sodium 40 Mg/0.4 Ml Syringe) 40 mg SUBCUT Q24H [facility] Last Admin: 10/24/21 11:34 Dose: 40 mg Documented by: Propofol (Diprivan) 1,000 mg in 100 mls @ 0 mls/hr IVCONT .Q0M [facility]; Protocol Last Titration: 10/24/21 07:01 Dose: 0 mcg/kg/min, 0 mls/hr Documented by: Norepinephrine Bitartrate (Levophed) 8 mg in 250 mls @ 0 mls/hr IVCONT .Q0M [facility]; Protocol Last Titration: 10/24/21 02:42 Dose: 0.02 mcg/kg/min, 4.95 mls/hr Documented by: Levetiracetam (Levetiracetam Oral Soln 500 Mg/5 Ml) 750 mg PO BID [facility] Last Admin: 10/24/21 11:34 Dose: 750 mg Documented by: Omeprazole (Omeprazole 20 Mg/10 Ml Susp.Recon) 40 mg PO DAILY@0630 [facility] Last Admin: 10/24/21 11:34 Dose: 40 mg Documented by: Pharmacy Consult (Consult Rx Perform Med Rec) 1 each MISCELLANE ONCE PRN PRN Reason: Consult order Pharmacy Consult (Consult Rx Vancomycin Dosing) 1 each MISCELLANE DAILY PRN PRN Reason: Consult order Home Medications Medication Instructions Recorded Confirmed Last Taken Type amiodarone 100 mg tablet 1 tab PO DAILY 03/20/21 10/23/21 10/22/21 History buspirone 7.5 mg tablet 1 tab PO BID 03/20/21 10/23/21 10/22/21 History donepezil 10 mg tablet 1 tab PO BEDTIME 03/20/21 10/23/21 10/22/21 History memantine 10 mg tablet 1 tab PO BID 03/20/21 10/23/21 10/22/21 History albuterol sulfate 90 mcg/actuation 2 puff INHALATION Q4H PRN 10/11/21 10/23/21 10/11/21 History aerosol inhaler ammonium lactate 12 % lotion 1 appl TOPICAL BID PRN 10/11/21 10/23/21 Unknown History bisacodyl 10 mg rectal suppository 10 mg VA DAILY PRN 10/11/21 10/23/21 Unknown History cholecalciferol (vitamin D3) 125 125 mcg PO MO@1000 10/11/21 10/23/21 10/21/21 History mcg (5,000 unit) tablet (Vitamin D3) furosemide 40 mg tablet 40 mg PO DAILY 10/23/21 10/23/21 10/22/21 History lisinopril 5 mg tablet 5 mg PO DAILY 10/23/21 10/23/21 10/22/21 History magnesium hydroxide 400 mg/5 mL 30 ml PO DAILY PRN 10/23/21 10/23/21 10/19/21 History oral suspension (Milk of Magnesia) Physical Exam Vital Signs: Vital Signs: Last Vital Signs Temp 101.7 F H 10/24/21 13:00 Pulse 89 10/24/21 13:00 Resp 8 L 10/24/21 13:00 BP 117/57 L 10/24/21 13:00 Pulse Ox 96 10/24/21 13:00 BMI result Body Mass Index 42.3 Neuro: Other: Not responsive to verbal stimuli. With pain stimuli she was decerebrate rating. Right pupil was 3 mm left 2 mm both reactive. With oculocephalic maneuver her eyes were not moving. Intermittently she would blink. Corneal reflexes seem to be absent. Deep tendon reflexes are absent with flat plantars. Results Labs CBC & Chem 7: 10/24/21 05:30 10/24/21 05:30 Labs: Short CBC 10/24/21 Range/Units 05:30 WBC 16.3 H (4.8-10.8) X10*3/uL Hgb 13.4 (12.0-16.0) g/dl Hct 42.5 (37.0-47.0) % Plt Count 237 (160-400) X10*3/uL BMP 10/24/21 05:30 Sodium 133 L Potassium 4.7 Chloride 102 Carbon Dioxide 24 BUN 19 H Creatinine 1.16 Calcium 8.3 L D Noncontrast head CT revealed moderate to severe diffuse cerebral and cortical atrophy and moderately severe chronic microvascular ischemic changes. Her EKG did not reveal any epileptic discharges or significant abnormality. Microbiology Microbiology Results: Microbiology 10/23/21 09:44 Blood - Venous Blood Culture - Preliminary No growth after 24 hours. 10/23/21 09:44 Blood - Venous Blood Culture - Preliminary No growth after 24 hours. Assessment and Plan (1) Encephalopathy: Status: Acute 80 years old woman with underlying history of atrial fibrillation not on anticoagulation had sudden change in mental status. She was noted to be febrile with leukocytosis and unable to maintain airway. Differential diagnosis included stroke but that would not explain fever. Either she had more than 1 pathologies or encephalitis explaining her overall situation. As far as this amount of encephalopathy is concerned, it could be due to infection or anoxic encephalopathy from lack of oxygenation while she was in pulmonary arrest. I recommend covering her for bacterial and viral encephalitis, performing a noncontrast MRI of brain to rule out stroke, and then obtaining a lumbar puncture in sending for meningoencephalitis panel. As far as levetiracetam is concerned, for now I will continue it until diagnosis is better refined. Procedures Date of Service Date of Service: 10/24/21
--- NOTE | 2021-10-24 13:59 | PM.CCPN ---
Subjective Subjective Date of Service: 10/24/21 Interval History: Mrs. Salas was admitted to the ICU yesterday with altered mental status and acute respiratory failure. The patient is a 72-year-old female with PMHx of vascular dementia, atrial fibrillation not currently on anticoagulation, HTN, HFpEF, PVD.? She had been on Xarelto for Afib but was admitted to [facility] 10/11- for a large rectus sheath hematoma, pneumonia, and UTI.? Xarelto was d/c?d. The patient resides permanently at a SNF.? Her baseline MS is awake, alert, conversant but confused.? Never been intubated before. The patient was BIBA yesterday morning from [facility] altered mental status. ?Was reportedly found unresponsive at 8:30am.? On EMS arrival, the patient was gurgling and was suctioned for thick green mucus.? There was question of possible seizure like activity with some arm twitching but no witnessed tonic clonic movements and no history of seizures. She vomited en route.? She was placed on supplemental oxygen and brought to the ED. In the ED, MS was altered, winced to sternal rub.? Unresponsive and gurgling.? Pinpoint pupils.? Sat 80% on room air with copious amounts of thin yellow oral secretions. ?Respiratory pattern intermittently labored, rhonchorous.? Unable to protect her airway.? She was intubated.? CXR showed some mild vascular congestion, with enlarged cardiac silhouette.? No focal infiltrates.? Head CT showed atrophy with ventricular enlargement. She was afebrile.? WBC 10, Hb 16 (baseline 13), BUN/creat 13/0.7, alb 3.8, lactic acid was normal, procalcitonin was low.? Normal trop, unremarkable EKG.? U/A negative.? Tox screen negative.? She was started on propofol.? She was given empiric vanco and Zosyn.? She became hypotensive and was therefore given a 500 cc bolus and started on Levophed.? She was admitted to the ICU. In the ICU she had decerebrate posturing on arrival.? Relaxed after bolus of propofol and fentanyl.? No seizure activity overnight, stable hemod on low dose Levophed.? FiO2 currently down to 35%. She?s been off propofol for about 7 hours so far today.? I examined the patient with Dr. Logan at the bedside. ?Still deeply comatose.? No eye opening.? She decerebrates to painful stimulation.? Right pupil about 4mm, left about 2.5mm.? I don?t see that they react to light.? Inconsistent corneal reflexes.? Very sluggish dolls? eyes.? She once made a chewing motion to a facial slap.? Both toes upgoing.? She?s off Levophed.? HR 91, atrial fibrillation.? BP 105/64.? On AC 8/410/35%/+5, RR is 16, Ve 7L, PIP 20cm, ETCO2 35mm, Sat 98%.? Tmax 101.8? since last night.? No JVD with the head of bed at 30 degrees.? Chest clear to auscultation, with normal expiratory phase.? Heart rate and rhythm are irregular, with normal-sounding S1 and S2, with no murmur or gallops.? The abdomen is obese and benign.? She has about 2+ peripheral and central edema. ECHOCARDIOGRAM today by the integrated pest management technician: 1. Normal LV size thickness and systolic function.? EF 65-70%.? No gross RWMAs. 2. Moderately increased RV size with normal function. 3. ?No AI, , or MR. 4. Mild to moderate TR, CWD measured 2.8 m/sec (gradient 31mm). 5. IVC was dilated with minimal inspiratory collapse. EEG this morning: ?Preliminary read:? No epileptic discharges or significant abnormality. IMPRESSION: 1. Underlying vascular dementia.? Baseline MS is awake, alert, conversant but confused. 2. Underlying atrial fibrillation.? S/P rectus sheath bleed, therefore not on anticoagulation. 3. Underlying HFpEF. 4. New encephalopathy:? Altered MS, unresponsiveness.? Metabolic vs infectious, vs stroke.? (Tox screen was negative.).? Cannot r/o seizure activity or stroke.? And the fever last night and today raises the possibility of meningoencephalitis.? D/W Dr. Logan. ?With her age and with her abnormal brain, this could be partial complex seizure activity.? We loaded her with Keppra, and she?ll stay on Keppra until the diagnosis is better refined. ??? Plan MRI tomorrow (unable to fit her into sched today).? In the meantime, start tx for bacterial and viral encephalitis.? LP after the MRI tomorrow. 5. Acute respiratory failure.? 2? above.? It?s possible that her initial CXR shows some pulmon edema (per the radiologist's reading), but the second CXR, done four hrs later after the CVL, is clear.? So if the first chest x-ray indeed showed pulmonary edema, it was probably negative pressure pulmonary edema.? Her current A-a gradient is almost normal.? I would expect her to be extubtable once/if she wakes up. 6. Hypotension (requirement for Levophed).? Not sure what the cause was, but it?s unlikely she was septic.? Volume status is adequate. Critical Care Time (minutes): 70 Physical Exam Vital Signs: Vital Signs: Last Vital Signs Temp 101.7 F H 10/24/21 13:00 Pulse 89 10/24/21 13:00 Resp 8 L 10/24/21 13:00 BP 117/57 L 10/24/21 13:00 Pulse Ox 96 10/24/21 13:00 BMI result Body Mass Index 42.3 Objective Data Labs CBC & Chem 7: 10/24/21 05:30 10/24/21 05:30 Labs: Laboratory Results - last 24 hr 10/24/21 10/24/21 10/24/21 05:30 05:30 05:30 WBC 16.3 H RBC 4.77 Hgb 13.4 Hct 42.5 MCV 89.1 MCH 28.1 MCHC 31.5 RDW 16.1 H Plt Count 237 MPV 9.3 L Absolute Nucleated RBC 0.000 Nucleated RBC % (auto) 0.0 VBG pH VBG pCO2 VBG pO2 VBG HCO3 VBG O2 Saturation VBG Base Excess Sodium 133 L Potassium 4.7 Chloride 102 Carbon Dioxide 24 Anion Gap 12 BUN 19 H Creatinine 1.16 Estim Creat Clear Calc 59.7 Estimated GFR 45 Random Glucose 97 Lactic Acid 1.1 Calcium 8.3 L D Phosphorus 4.7 H Magnesium 2.1 B-Natriuretic Peptide 10/24/21 10/24/21 05:30 05:37 WBC RBC Hgb Hct MCV MCH MCHC RDW Plt Count MPV Absolute Nucleated RBC Nucleated RBC % (auto) VBG pH 7.33 VBG pCO2 45 VBG pO2 45 VBG HCO3 24 VBG O2 Saturation 71.0 VBG Base Excess -1.4 Sodium Potassium Chloride Carbon Dioxide Anion Gap BUN Creatinine Estim Creat Clear Calc Estimated GFR Random Glucose Lactic Acid Calcium Phosphorus Magnesium B-Natriuretic Peptide 317 H Microbiology Microbiology Results: Microbiology 10/23/21 09:44 Blood - Venous Blood Culture - Preliminary No growth after 24 hours. 10/23/21 09:44 Blood - Venous Blood Culture - Preliminary No growth after 24 hours. Quality Stroke Does the patient have a stroke diagnosis?: No VTE Prior VTE?: No VTE Risk Level:: Medical - moderate - high VTE Device Contraindication: N/A - Device Ordered VTE Drug Contraindication: N/A - Med Ordered Critical Care Time Critical Care Time (minutes): 60
[2021-10-24 14:19] LABS: Procalcitonin 6.16 ng/mL
[2021-10-24] MEDS: cefTRIAXone sodium 2 GM in 0.9 % Sodium Chloride 50 ML IV (14:28)
--- NOTE | 2021-10-24 14:46 | PHA.PROG ---
Admission Date/Time: October 23, 2021 12:17 Indication:INFORMATICS NURSE SPECIALIST INFECTION Weight in k.8 kg Adjusted body weight in K.62 KG [facility] body weight in Kg: Obesity Dosing Indication % IBW: Serum Creatinine - Last 168 Hours 10/23/21 10/24/21 09:45 05:30 Creatinine 0.71 1.16 Estimated CrCl and GFR - Last 168 Hours 10/23/21 10/24/21 09:45 05:30 Estim Creat Clear Calc 96.7 59.7 Estimated GFR > 60 45 Vancomycin Loading Dose: 2000 MG Current Vancomycin Dosing Regimen:1500 MG Q24 HR Vancomycin Monitoring using AUC goal of 400 - 600 range with trough as surrogate marker: Goal AUC is 550 since INFORMATICS NURSE SPECIALIST infection Date and Time for next Vancomycin Level to be drawn:10/25@1399 Pharmacist Comments on Vancomycin Plan: Patient has INFORMATICS NURSE SPECIALIST infection, auc goal is 550 and trough of 20. Patient may require dose adjustment after 6/2 dose since cr did increase, next level is scheduled 1400 Vancomycin dosing will take advantage of [employer] as a clinical decision support tool that uses Bayesian modeling to calculate individual patient's pharmacokinetic parameters and forecast the patient's drug concentration time course with the target goal AUC 24 range of 400 - 600 mg/L/hr.
[2021-10-24] MEDS: Ampicillin Sodium 2 GM in 0.9 % Sodium Chloride 100 ML IV ×3 (14:59→23:38)
[2021-10-24] MEDS: vancomycin HCL 1,500 MG in 0.9 % Sodium Chloride 500 ML 333.33 MG IV (16:08)
[2021-10-24] MEDS: Enoxaparin Sodium 60 MG/0.6 ML SYRINGE 20 MG SUBCUT (20:14)
[2021-10-25] VITALS (21 sets, daily range): BP systolic 90–126; BP diastolic 51–77; PULSE 84–116; RESP 13–19; TEMP 35–38.1; O2SAT 89–98; BMI 41.6
[2021-10-25] MEDS: cefTRIAXone sodium 2 GM in 0.9 % Sodium Chloride 50 ML IV (02:50)
[2021-10-25] MEDS: Ampicillin Sodium 2 GM in 0.9 % Sodium Chloride 100 ML IV ×2 (02:52→06:01)
[2021-10-25 05:23] LABS: Hematocrit 39.9 % (37.0-47.0); Hemoglobin 12.8 g/dl (12.0-16.0); Mean Corpuscular HGB Conc 32.1 g/dl (31.0-35.0); Mean Corpuscular Hemoglobin 28.2 pg (27.0-33.0); Mean Corpuscular Volume 87.9 fL (80.0-98.0); Mean Platelet Volume 9.5 fL (9.4-12.3); Platelet Count 217 X10*3/uL (160-400); Red Blood Count 4.54 X10*6/uL (4.20-5.50); Red Cell Distribution Width 15.8 % (11.0-16.0); White Blood Count 10.1 X10*3/uL (4.8-10.8)
[2021-10-25 05:23] LABS: VBG HCO3 23 mmol/L (22-26); VBG pCO2 37 mmHg; VBG pO2 50 mmHg
--- NOTE | 2021-10-25 05:23 | PC.NURSE ---
CARE ASSUMED 23:15...REMAINS TUBED/VENTED...OFF SEDATION SINCE 10/24 7AM....UNRESPONSIVE....EXTREMETIES FLACCID...WITHDRAWS FEET WITH FLARING OF TOES TO NOXIOUS STIMULI...RIGHT PUPIL 3-4MM/LEFT 2-3MM...BOTH NON-REACTIVE..(+) GAG/COUGH...ATRIAL FIB..BP MARGINAL AT HS..LEVOPHED DRIP RESTARTED 0.03 MCG/KG/MIN WITH EFFECT...BOWDEN IRASEMA-YELLOW URINE..REMAINS WITH GENERALIZED EDEMA..LOWER LEGS REMAIN DISCOLOURED/MOTTLED..AM LABS PENDING...PER REPORT AM PLAN = MRI AND LP
[2021-10-25 05:26] LABS: Venous Blood Gas Refer to POC result
[2021-10-25 05:44] LABS: Anion Gap 14 (12-20); Blood Urea Nitrogen 23 mg/dL (9-16); C Reactive Protein 22.15 mg/dL (< or = 0.50); Calcium 7.9 mg/dL (8.4-10.2); Carbon Dioxide 23 mmol/L (22-29); Chloride 109 mmol/L (96-108); Creatinine Clr Calc Pharmacy 50.4; Estimated Glomerular Filt Rate 38; Glucose Random 88 mg/dL (60-115); Magnesium 2.1 mg/dL (1.6-2.6); Phosphorus 4.6 mg/dL (2.7-4.5); Potassium 4.3 mmol/L (3.3-5.1); Sodium 142 mmol/L (135-145)
[2021-10-25] MEDS: Chlorhexidine Gluc Oral Rinse 15 ML MOUTHWASH BUCCAL (08:53)
[2021-10-25] MEDS: levETIRAcetam Oral Soln 500 MG/5 ML 750 MG PO (08:53)
--- NOTE | 2021-10-25 10:05 | PM.CCPN ---
Subjective Subjective Date of Service: 10/25/21 Interval History: Mrs. Salas was admitted to the ICU on October 23 with altered mental status and acute respiratory failure. The patient is a 72-year-old female with PMHx of vascular dementia, atrial fibrillation not currently on anticoagulation, HTN, HFpEF, PVD.? She had been on Xarelto for Afib but was admitted to [facility] 10/11- for a large rectus sheath hematoma, pneumonia, and UTI.? Xarelto was d/c?d. The patient resides permanently at a SNF.? Her baseline MS is awake, alert, conversant but confused.? Never been intubated before. The patient was BIBA on October [address] [facility] altered mental status. ?Was reportedly found unresponsive at 8:30am.? On EMS arrival, the patient was gurgling and was suctioned for thick green mucus.? There was question of possible seizure like activity with some arm twitching but no witnessed tonic clonic movements and no history of seizures. She vomited en route.? She was placed on supplemental oxygen and brought to the ED. In the ED, MS was altered, winced to sternal rub.? Unresponsive and gurgling.? Pinpoint pupils.? Sat 80% on room air with copious amounts of thin yellow oral secretions. ?Respiratory pattern intermittently labored, rhonchorous.? Unable to protect her airway.? She was intubated.? CXR showed some mild vascular congestion, with enlarged cardiac silhouette.? No focal infiltrates.? Head CT showed atrophy with ventricular enlargement. She was afebrile.? WBC 10, Hb 16 (baseline 13), BUN/creat 13/0.7, alb 3.8, lactic acid was normal, procalcitonin was low.? Normal trop, unremarkable EKG.? U/A negative.? Tox screen negative.? She was started on propofol.? She was given empiric vanco and Zosyn.? She became hypotensive and was therefore given a 500 cc bolus and started on Levophed.? She was admitted to the ICU. In the ICU she had decerebrate posturing on arrival.? Relaxed after bolus of propofol and fentanyl.? No obvious seizure, stable hemod on low dose Levophed. FiO2 down to 35%. She was off propofol all day yesterday. ?Remained densely comatose.? GCS 4T.? I examined her with Dr. Logan.? 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 MRI this morning shows dense bilat cerebellar and brainstem strokes: ?New extensive acute infarcts involving the SCA territories of the cerebellar hemispheres bilaterally, significant portions of the howard and midbrain, and the medial thalami bilaterally. There is a punctate acute infarct within the right occipital lobe as well. Cytotoxic edema within the posterior fossa results in partial effacement of the fourth ventricle superiorly. No hemorrhagic transformation. ??? Severe lateral and third ventriculomegaly is slightly progressed and likely secondary to a combination of cerebral volume loss and developing ventricular obstruction from mass effect within the posterior fossa. ??? 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 I rev the scan in detail w Dr. Styles in Radiology. On exam (w propofol off for 28 hours), still deeply comatose.? No eye opening.? She decerebrates to painful stimulation.? Right pupil about 4mm, left about 2.5mm.? I don?t see that they react to light.? Inconsistent corneal reflexes.? Very sluggish dolls? eyes.? HR 85, atrial fibrillation.? BP 96/63.? On AC/VC+ 16/410/40%/+5, RR is 16, Ve 6.2L, PIP 19cm, ETCO2 30mm, Sat 93%.? Tmax 101.8?.? No JVD with the head of bed at 30 degrees.? The abdomen is obese and benign.? She has about 2+ peripheral and central edema. ECHOCARDIOGRAM yesterday by the client technical professional: 1. Normal LV size thickness and systolic function.? EF 65-70%.? No gross RWMAs. 2. Moderately increased RV size with normal function. 3. ?No AI, , or MR. 4. Mild to moderate TR, CWD measured 2.8 m/sec (gradient 31mm). 5. IVC was dilated with minimal inspiratory collapse. EEG yesterday morning:? Mild generalized slowing with no epileptic discharges. IMPRESSION:? 1. Underlying vascular dementia.? Baseline MS is awake, alert, conversant but confused. 2. Underlying atrial fibrillation.? S/P rectus sheath bleed, therefore not on anticoagulation. 3. Underlying HFpEF. 4. 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 This is not remediable.? She is no candidate for surgery. She will never regain consciousness, and she will likely progress to brain .? I have written DNR orders based on the aforementioned.? I will call the family. 5. Dense coma.? 2? above.? GCS 4T. 6. Acute respiratory failure.? 2? above. ADDENDUM: Spoke w the HCP, her son Tobi. I explained the situation. He just wants to make her comfortable. He is not going to come in to see her, but his father will. The (Tobi' father) came in to see her. He also wanted to make her comfortable. Agreed to extubation to POSTDOCTORAL SCIENTIST, but did not want to stay. After the left, she was extubated to room air. Had some airway and regurgitation problems early on, but those resolved with help of some fentanyl. A couple of hours later she was breathing easy on room air w SpO2 in the 90's. She may have to be triaged to the medical floor. Critical care time:? 80+ min. Critical Care Time (minutes): 80 Physical Exam Vital Signs: Vital Signs: Last Vital Signs Temp 99.1 F 10/25/21 09:00 Pulse 96 10/25/21 09:00 Resp 16 10/25/21 09:00 BP 104/62 10/25/21 09:00 Pulse Ox 89 L 10/25/21 09:00 BMI result Body Mass Index 41.6 Objective Data Labs CBC & Chem 7: 10/25/21 05:05 10/25/21 05:05 Labs: Laboratory Results - last 24 hr 10/24/21 10/25/21 10/25/21 05:30 05:05 05:05 WBC 10.1 RBC 4.54 Hgb 12.8 Hct 39.9 MCV 87.9 MCH 28.2 MCHC 32.1 RDW 15.8 Plt Count 217 MPV 9.5 Absolute Nucleated RBC 0.000 Nucleated RBC % (auto) 0.0 VBG pH VBG pCO2 VBG pO2 VBG HCO3 VBG O2 Saturation VBG Base Excess Sodium 142 Potassium 4.3 Chloride 109 H Carbon Dioxide 23 Anion Gap 14 BUN 23 H Creatinine 1.36 Estim Creat Clear Calc 50.4 Estimated GFR 38 Random Glucose 88 Calcium 7.9 L Phosphorus 4.6 H Magnesium 2.1 C-Reactive Protein 22.15 H Procalcitonin 6.16 10/25/21 05:15 WBC RBC Hgb Hct MCV MCH MCHC RDW Plt Count MPV Absolute Nucleated RBC Nucleated RBC % (auto) VBG pH 7.40 VBG pCO2 37 VBG pO2 50 VBG HCO3 23 VBG O2 Saturation 79.0 VBG Base Excess -1.0 Sodium Potassium Chloride Carbon Dioxide Anion Gap BUN Creatinine Estim Creat Clear Calc Estimated GFR Random Glucose Calcium Phosphorus Magnesium C-Reactive Protein Procalcitonin Microbiology Microbiology Results: Microbiology 10/24/21 11:18 Sputum - Suctioned Gram Stain - Final 10/23/21 09:44 Blood - Venous Blood Culture - Preliminary No growth after 24 hours. 10/23/21 09:44 Blood - Venous Blood Culture - Preliminary No growth after 24 hours. Quality Stroke Does the patient have a stroke diagnosis?: No VTE Prior VTE?: No VTE Risk Level:: Medical - moderate - high VTE Device Contraindication: N/A - Device Ordered VTE Drug Contraindication: N/A - Med Ordered Critical Care Time Critical Care Time (minutes): 90
--- NOTE | 2021-10-25 10:37 | MHC.CLN ---
F/U PT REMAINS INTUBATED DISCUSSED AT ROUNDS; PT WITH NEW LARGE CVA WITH POOR PROGNOSIS MD PLANS TO DISCUSS PLAN OF CARE AND POSSIBLE SUPERVISOR ESTERS AND EMULSIFIERS WITH FAMILY WILL FOLLOW WITH TEAM AND PROVIDE SUPPORT NEEDED IF TF NEEDED; SEE PREVIOUS RECOMMENDATIONS
--- NOTE | 2021-10-25 11:32 | MHC.CM.PN ---
Pt had CT of head which showed extensive damage from new CVA. 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 It is expected that she will pass here. CM to follow for changes in plan
[2021-10-25] MEDS: fentaNYL citrate/PF 100 MCG/2 ML VIAL 50 MCG IVPUSH ×2 (11:50→12:17)
[2021-10-25] MEDS: Glycopyrrolate 0.2 MG/ML VIAL IVPUSH (12:13)
[2021-10-25] MEDS: fentaNYL citrate/NS 1,000 MCG/100 ML PLAST..BAG 10 MCG IVCONT (12:35)
--- NOTE | 2021-10-25 12:50 | PC.NURSE ---
Addendum entered by Tianna Hernandez RN 10/25/21 17:20: PATIENTS NOTIFIED THIS RN THAT THE HOME WILL BE: [facility] [address] [facility] [id number] Original Note: FAMILY NOTIFIED BY OF MRI RESULTS. FAMILY DECIDED ON MILANESE KNITTING MACHINE OPERATOR - ARRIVED BRIEFLY TO SAY GOODBYE. WILL CALL TIFFANY (SON) [phone] WHEN PATIENT EXPIRES. EXTUBATED TO ROOM AIR AT 1152. PRN X 2 FENTANYL IVP WITH MINIMAL EFFECT THEN FENTANYL GTT STARTED FOR COMFORT. SEE EMAR. NEOB CALLED AND CASE DENIED BY PIETER AT 8315. CASE #[id number] WILL CALL BACK WITH DELORES
--- NOTE | 2021-10-25 13:13 | HO.SEPSISX_ITS ---
Sepsis Bolus Exclusion Sepsis Bolus Exclusion This patient met severe sepsis criteria due to the following condition(s):: Hypo tension In my clinical judgement the administration of 30 ml/kg of crystalloid would be detrimental to this patient due to the patient's following conditions:: Concern for fluid overload Replace the 30 mls/kg with (*zero amount not acceptable): *Note: One of the washburn must be documented Crystalloids amount given in mls: (rate must be at least 150cc/hr): 500
[2021-10-25] MEDS: Scopolamine 1.5 MG PATCH.TD.3 1 MG EAR-BEHIND (22:09)
[2021-10-26] VITALS (11 sets, daily range): BP systolic 112; BP diastolic 67; PULSE 79–92; RESP 4–6; TEMP 37.3–38.3; O2SAT 85–95
[2021-10-26] MEDS: Scopolamine 1.5 MG PATCH.TD.3 EAR-BEHIND (09:23)
--- NOTE | 2021-10-26 15:42 | P.PNIM_ITS ---
Subjective Subjective Date of Service: 10/26/21 Interval History: Seen this morning, at the bedside Seems comfortable Review of Systems Review of Systems: Yes Unobtainable due to mental status Physical Exam Vital Signs: Vital Signs: Last Vital Signs Temp 100.9 F H 10/26/21 08:00 Pulse 88 10/26/21 14:00 Resp 6 L 10/26/21 08:00 BP 112/67 10/26/21 00:00 Pulse Ox 93 10/26/21 08:00 BMI result Body Mass Index 41.6 Const: Other: Looks comfortable, not in distress Objective Data Active Medications Fentanyl (Fentanyl Citrate/Pf 100 Mcg/2 Ml Vial) 50 mcg IVPUSH Q5M PRN; Protocol PRN Reason: pain or WOB Last Admin: 10/25/21 12:17 Dose: 50 mcg Documented by: WIN Fentanyl (Sublimaze/Ns) 1,000 mcg in 100 mls @ 0 mls/hr IVCONT .Q0M NAVEEN; Protocol Last Titration: 10/26/21 09:24 Dose: 0 mcg/hr, 0 mls/hr Documented by: WIN Pharmacy Consult (Consult Rx Perform Med Rec) 1 each MISCELLANE ONCE PRN PRN Reason: Consult order Pharmacy Consult (Consult Rx Vancomycin Dosing) 1 each MISCELLANE DAILY PRN PRN Reason: Consult order Labs CBC & Chem 7: 10/25/21 05:05 10/25/21 05:05 Microbiology Microbiology Results: Microbiology 10/24/21 11:18 Gram Stain - Final Sputum - Suctioned Sputum Culture - Preliminary Yeast 10/23/21 09:44 Blood Culture - Preliminary Blood - Venous No growth after 48 hours. 10/23/21 09:44 Blood Culture - Preliminary Blood - Venous No growth after 48 hours. Assessment and Plan (1) Acute respiratory failure with hypoxia: Status: Acute (2) Acute metabolic encephalopathy: Status: Acute Plan Mrs. Salas with PMHx of vascular dementia, atrial fibrillation not currently on anticoagulation, HTN, HFpEF, PVD.? She had been on Xarelto for Afib but was admitted to [facility] 10/11- for a large rectus sheath hematoma, pneumonia, and UTI.?was admitted to the ICU on October 23 with altered mental status and acute respiratory failure. Acute respiratory failure Major, extensive, bilat cerebellar and brainstem strokes Patient on comfort measures Morphine q.2 hours for dyspnea Ativan 1 mg p.r.n. for restlessness Scopolamine patch Support over to the family Quality Stroke Does the patient have a stroke diagnosis?: No VTE Prior VTE?: No VTE Risk Level:: Medical - moderate - high VTE Device Contraindication: N/A - Device Ordered VTE Drug Contraindication: N/A - Med Ordered
--- NOTE | 2021-10-26 18:52 | PC.NURSE ---
SCOPOLOMINE PATCH TO LEFT EAR PLACED. BEDSIDE TODAY TO VISIT.
[2021-10-27] VITALS: PULSE 90
--- NOTE | 2021-10-27 04:25 | PC.NURSE ---
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
[2021-10-27 07:59] VITALS: PULSE 94
[2021-10-27 08:05] VITALS: RESP 12
[2021-10-27] MEDS: Morphine Sulfate 2 MG/ML CARTRIDGE IVPUSH ×6 (08:05→19:26)
[2021-10-27] MEDS: LORazepam 2 MG/ML VIAL 1 MG IVPUSH ×3 (08:06→16:41)
--- NOTE | 2021-10-27 09:26 | P.PNIM_ITS ---
Subjective Subjective Date of Service: 10/27/21 Interval History: Seen this morning, Agonal breathing, not in distress Seems comfortable Physical Exam Vital Signs: Vital Signs: Last Vital Signs Temp 100.9 F H 10/26/21 08:00 Pulse 94 10/27/21 07:59 Resp 12 10/27/21 08:05 BP 112/67 10/26/21 00:00 Pulse Ox 95 10/26/21 22:00 BMI result Body Mass Index 41.6 Const: Other: Looks comfortable, not in distress Objective Data Active Medications Lorazepam (Lorazepam 2 Mg/Ml Vial) 1 mg IVPUSH Q4H PRN PRN Reason: anxiety/restlessness Last Admin: 10/27/21 08:06 Dose: 1 mg Documented by: WIN Morphine Sulfate (Morphine Sulfate 2 Mg/Ml Cartridge) 2 mg IVPUSH Q2H PRN; Protocol PRN Reason: Dyspnea Last Admin: 10/27/21 08:05 Dose: 2 mg Documented by: WIN Labs CBC & Chem 7: 10/25/21 05:05 10/25/21 05:05 Microbiology Microbiology Results: Microbiology 10/24/21 11:18 Gram Stain - Final Sputum - Suctioned Sputum Culture - Final Emily albicans Assessment and Plan (1) Acute respiratory failure with hypoxia: Status: Acute (2) Acute metabolic encephalopathy: Status: Acute Plan Mrs. Salas with PMHx of vascular dementia, atrial fibrillation not currently on anticoagulation, HTN, HFpEF, PVD.? She had been on Xarelto for Afib but was admitted to [facility] 10/11- for a large rectus sheath hematoma, pneumon ia, and UTI.?was admitted to the ICU on October 23 with altered mental status and acute respiratory failure. Acute respiratory failure Major, extensive, bilat cerebellar and brainstem strokes Patient on comfort measures Morphine q.2 hours prn for dyspnea Ativan 1 mg p.r.n. for restlessness Scopolamine patch will continue to monitor and offer support to family Quality Stroke Does the patient have a stroke diagnosis?: No VTE Prior VTE?: No VTE Risk Level:: Medical - moderate - high VTE Device Contraindication: N/A - Device Ordered VTE Drug Contraindication: N/A - Med Ordered
[2021-10-27 15:56] VITALS: PULSE 99; RESP 12; TEMP 38.4
[2021-10-28] VITALS (7 sets, daily range): BP systolic 148; BP diastolic 71; PULSE 100; RESP 6–14; TEMP 37.4
--- NOTE | 2021-10-28 09:37 | MHC.CLN ---
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
--- NOTE | 2021-10-28 11:57 | PM.EVENT ---
Event Note Date of Service: 10/28/21 Event Note: Pt seen/examined. Unresponsive, breathing comfortably 80/F with PMHx of vascular dementia, atrial fibrillation not currently on anticoagulation, HTN, HFpEF, PVD.? She had been on Xarelto for Afib but was [place] [facility] [place] for a large rectus sheath hematoma, pneumonia, and UTI.?was admitted to the ICU on October 23 with altered mental status and acute respiratory failure, has major, extensive, bilat cerebellar and brainstem strokes.. Was intubated and terminally extubated and made comfort only. Plan: continue comfort care only, ativan and morphine for comfort.
--- NOTE | 2021-10-28 12:30 | MHC.CM.PN ---
HEAVY EQUIPMENT RENTAL ASSOCIATE, IV MORPHINE AND IV ATIVAN GIVEN YESTERDAY. CM will follow.Patient is from LTC at [facility].
[2021-10-28] MEDS: Morphine Sulfate 2 MG/ML CARTRIDGE IVPUSH (15:29)
[2021-10-28] MEDS: LORazepam 2 MG/ML VIAL 1 MG IVPUSH (19:35)
[2021-10-29 04:43] VITALS: RESP 14
[2021-10-29] MEDS: Morphine Sulfate 2 MG/ML CARTRIDGE IVPUSH (04:43)
[2021-10-29 05:58] VITALS: RESP 13
[2021-10-29 07:20] VITALS: RESP 12
--- NOTE | 2021-10-29 10:33 | P.EN_ITS ---
Event Note Date of Service: 10/29/21 Event Note: seen/examined. Unresponsive, breathing comfortably, non labored 80/F with PMHx of vascular dementia, atrial fibrillation not currently on anticoagulation, HTN, HFpEF, PVD.? She had been on Xarelto for Afib but was [place] [facility] [place] for a large rectus sheath hematoma, pneumonia, and UTI.?was admitted to the ICU on October 23 with altered mental status and acute respiratory failure, has major, extensive, bilat cerebellar and brainstem strokes.. Was intubated and terminally extubated and made comfort only. Plan: continue comfort care only, ativan and morphine for comfort. Consider transfer to SNF
--- NOTE | 2021-10-29 11:34 | MHC.CM.PN ---
Per MD in ROUNDS, Patient is medically cleared for dc to return to LTC/SNF today, on continued LE[employer]IONS ARCHITECT. Patient will return to [facility] today at 2PM, via [facility]. CM spoke with first contact//Aba @ [phone],and addressed IMM with him (mailing him the original certified mail and placing a copy on the chart). MD is aware that new Covid swab is needed and updated MOLST.
[2021-10-29] MEDS: Scopolamine 1.5 MG PATCH.TD.3 EAR-BEHIND (11:36)
[2021-10-29 12:48] LABS: COVID-19 Test Negative (Negative)
--- NOTE | 2021-10-29 12:59 | P.DS_ITS ---
DS: Providers Provider Date of Service: 10/29/21 Date of admission: 10/23/21 12:17 Primary care physician: Yusuf Garcia MD DS: Diagnosis Discharge Diagnosis (1) Acute respiratory failure with hypoxia: Status: Acute (2) Acute metabolic encephalopathy: Status: Acute DS: Summary Hospital Course Hospital Course: Mrs. Salas was admitted to the ICU on October 23 with altered mental status and acute respiratory failure. The patient is a 72-year-old female with PMHx of vascular dementia, atrial fibrillation not currently on anticoagulation, HTN, HFpEF, PVD.? She had been on Xarelto for Afib but was [place] [facility] [place] for a large rectus sheath hematoma, pneumonia, and UTI.? Xarelto was d/c?d. The patient resides permanently at a SNF.? Her baseline MS is awake, alert, conversant but confused.? Never been intubated before. The patient was BIBA on October 23 from [facility] altered mental status. ?Was reportedly found unresponsive at 8:30am.? On EMS arrival, the patient was gurgling and was suctioned for thick green mucus.? There was question of possible seizure like activity with some arm twitching but no witnessed tonic clonic movements and no history of seizures. She vomited en route.? She was placed on supplemental oxygen and brought to the ED. In the ED, MS was altered, winced to sternal rub.? Unresponsive and gurgling.? Pinpoint pupils.? Sat 80% on room air with copious amounts of thin yellow oral secretions. ?Respiratory pattern intermittently labored, rhonchorous.? Unable to protect her airway.? She was intubated.? CXR showed some mild vascular congestion, with enlarged cardiac silhouette.? No focal infiltrates.? Head CT showed atrophy with ventricular enlargement. She was afebrile.? WBC 10, Hb 16 (b aseline 13), BUN/creat 13/0.7, alb 3.8, lactic acid was normal, procalcitonin was low.? Normal trop, unremarkable EKG.? U/A negative.? Tox screen negative.? She was started on propofol.? She was given empiric vanco and Zosyn.? She became hypotensive and was therefore given a 500 cc bolus and started on Levophed.? She was admitted to the ICU. In the ICU she had decerebrate posturing on arrival.? Relaxed after bolus of propofol and fentanyl.? No obvious seizure, stable hemod on low dose Levophed. FiO2 down to 35%. She was off propofol all day yesterday. ?Remained densely comatose.? GCS 4T.? I examined her with Dr. Logan.? 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 MRI later showed dense bilat cerebellar and brainstem strokes: ? ? ?New extensive acute infarcts involving the SCA territories of the cerebellar hemispheres bilaterally, significant portions of the howard and midbrain, and the medial thalami bilaterally. There is a punctate acute infarct within the right occipital lobe as well. Cytotoxic edema within the posterior fossa results in partial effacement of the fourth ventricle superiorly. No hemorrhagic transformation. ??? Severe lateral and third ventriculomegaly is slightly progressed and likely secondary to a combination of cerebral volume loss and developing ventricular obstruction from mass effect within the posterior fossa. ??? 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 IMPRESSION:?1. Underlying vascular dementia.? Baseline MS is awake, alert, conversant but confused. ?2. Underlying atrial fibrillation.? S/P rectus sheath bleed, therefore not on anticoagulation. ?3. Underlying HFpEF. ?4. 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 This is not remediable.? She is no candidate for surgery.? She will never regain consciousness, and she will likely progress to brain .? I have written DNR orders based on the aforementioned.? I will call the family. ?5. Dense coma.? 2? above.? GCS 4T. ?6. Acute respiratory failure.? 2? above. Given the extensive nature of her stroke and overall poor prognosis family opted for comfort measures only. Patient was terminally extubated and then transfered to to medical floor. Patient will return to her SNF today for the rest of her care. She will be on morphine and Ativan for comfort. MOLST form completed with son and at bedside Time Spent with Patient Time attestation: Total time spent providing and/or coordinating discharge services: Discharge coordination time: Greater than 30 minutes Quality: Safe Use of Opioids Does Pt have an Active Cancer Diagnosis on the Problem List?: No Quality: Stroke Does the patient have a stroke diagnosis?: No Physical Exam Vital Signs: Vital Signs: Last Vital Signs Temp 99.4 F 10/28/21 07:24 Pulse 100 10/28/21 07:24 Resp 12 10/29/21 07:20 BP 148/71 H 10/28/21 07:24 Pulse Ox 95 10/26/21 22:00 BMI result Body Mass Index 41.6 Const: Other: She is unresponsive and breathing is comfortable. DS: Data Data Completed and Pending Labs on day of discharge: Laboratory Results - last 24 hr 10/29/21 11:50 COVID-19 ([facility]) Negative COVID-19 Clin Com See Note Discharge Plan Discharge Anticipated Discharge Date/Time: 10/29/21 13:32 Patient Disposition: Xfer SNF Discharge Diagnosis: Acute embolic CVA, Encephalopathy Referrals: [facility] [Outside] - 1 Week Yusuf Garcia MD [Primary Care Provider] - 1 Week Discharge Medications: New scopolamine base [Transderm-Scop] 1 mg over 3 days Patch 3 Day 1.5 mg EAR-BEHIND Q72H Qty: 1 0RF morphine concentrate 100 mg/5 mL (20 mg/mL) Solution 5 mg PO Q3H PRN (Reason: pain/comfort) 15 Days Qty: 30 0RF lorazepam [Lorazepam Intensol] 2 mg/mL Concentrate 0.5 mg PO Q4H PRN (Reason: anxiety/restlessness) Qty: 30 0RF Discontinued albuterol sulfate 90 mcg/actuation Hfa Aerosol Inhaler 2 puff INHALATION Q4H PRN (Reason: Respiratory Distress) 0RF ammonium lactate 12 % Lotion 1 appl TOPICAL BID PRN (Reason: Dry Skin) 0RF bisacodyl 10 mg Suppository 10 mg VT DAILY PRN (Reason: Constipation) 0RF cholecalciferol (vitamin D3) [Vitamin D3] 125 mcg (5,000 unit) Tablet 125 mcg PO MO@1000 0RF dextromethorphan-guaifenesin 10-100 mg/5 mL Syrup 10 ml PO TID Qty: 240 0RF acetaminophen 325 mg Tablet 650 mg PO Q6H PRN (Reason: Pain, Mild (Pain Scale 1-3)) Qty: 30 0RF donepezil 10 mg tablet 1 tab PO BEDTIME 0RF buspirone 7.5 mg tablet 1 tab PO BID 0RF amiodarone 100 mg tablet 1 tab PO DAILY 0RF memantine 10 mg tablet 1 tab PO BID 0RF furosemide 40 mg Tablet 40 mg PO DAILY 0RF magnesium hydroxide [Milk of Magnesia] 400 mg/5 mL Suspension 30 ml PO DAILY PRN (Reason: Constipation) 0RF lisinopril 5 mg Tablet 5 mg PO DAILY 0RF Discharge Orders: Discharge Order (Routine); Ordered 10/29/21 Ordered By: Aubrey Calabrese Activity on Discharge: nPO Stand Alone Forms: Patient Portal Discharge page Care Plan Goals: comfort measures only Health Concerns: comfort measures only Plan of Treatment: comfort measures only Assessment: comfort measures only
== END 2021-10-29 14:10 | disposition skilled nursing facility (03) | DRG 64 ==
LOC: HO.ED 11:10 → HO.EDOVER 12:32 → HO.ICU 13:23 → HO.IMC 10-27 22:16
PROVIDERS: Physician Assistant; Admitting Provider Anesthesiology; Emergency Provider Emergency Medicine; PCP Family Medicine; Visit Provider Internal Medicine
DX: I63.543 Cerebral infarction due to unspecified occlusion or stenosis of bilateral cerebellar arteries (principal); I63.02 Cerebral infarction due to thrombosis of basilar artery; J96.01 Acute respiratory failure with hypoxia; A41.9 Sepsis, unspecified organism; R40.20 Unspecified coma; G93.41 Metabolic encephalopathy; J69.0 Pneumonitis due to inhalation of food and vomit; I48.19 Other persistent atrial fibrillation; I50.32 Chronic diastolic (congestive) heart failure; G40.209 Localization-related (focal) (partial) symptomatic epilepsy and epileptic syndromes with complex partial seizures, not intractable, without status epilepticus; Z51.5 Encounter for palliative care; F01.50 Vascular dementia, unspecified severity, without behavioral disturbance, psychotic disturbance, mood disturbance, and anxiety; I95.9 Hypotension, unspecified; F41.9 Anxiety disorder, unspecified; R40.2434 Glasgow coma scale score 3-8, 24 hours or more after hospital admission; I11.0 Hypertensive heart disease with heart failure; D45 Polycythemia vera; Z20.822 Contact with and (suspected) exposure to COVID-19; Z87.440 Personal history of urinary (tract) infections; Z87.01 Personal history of pneumonia (recurrent); Z79.899 Other long term (current) drug therapy
CPT/HCPCS: 36415; 70450; 70551; 71045; 80048; 80076; 80307; 81003; 82140; 82803; 82947; 83605; 83735; 83880; 84100; 84145; 84439; 84443; 84484; 85025; 85027; 85610; 85730; 86140; 87040; 87070; 87077; 87205; 87502; 87635; 93005; 93306; 94002; 94003; 94799; 95816; 96361; 96365; 96366; 96367; 96375; 99285; C1758; J0133; J0290; J0696; J1650; J1953; J2060; J2270; J2405; J2543; J3010; J3370